=== PATIENT | male | born 1935 | race Caucasian/White ===

== ENCOUNTER 2016-11-18 04:30 | Inpatient (IN) | payer OTHER, MEDICARE ==
[~2016-11-18] VITALS: Ht 185.4 cm; Wt 121.1 kg
[2016-11-18] VITALS (22 sets, daily range): BP systolic 92–124; BP diastolic 50–73; PULSE 102–136; RESP 14–27; TEMP 98.1–99.5; O2SAT 99–100
[~2016-11-18 04:30] MED LIST: ALLO300 PO; APIX2.5T PO; BUME1TAB PO; CARV12.5 PO; DILT31TA PO; DOCU100C PO; LEVEMIR SQ; METHY5 PO; PRED20 PO; PROT40TA PO; SIMV20TA PO; TAMS0.4C4 PO; TIMO0.5S30 EACH EYE; ULTR50TA5 PO
[2016-11-18] MEDS ORDERED: VANCOMYCIN INJ 1,000 MG in SODIUM CHLOR 0.9% 250 ML INJ 250 ML IV ONE (04:45)
[2016-11-18] MEDS: SODIUM CHLOR 0.9% 1000 ML INJ 1,000 ML IV ONE ×4 (04:45→04:56)
[2016-11-18] MEDS ORDERED: SODIUM CHLOR 0.9% 1000 ML INJ 1,000 ML IV ONE (04:45)
[2016-11-18] MEDS ORDERED: PIPERACIL-TAZO 3.375 GM PREMIX 50 ML IV ONE (04:45)
[2016-11-18] MEDS ORDERED: fentaNYL DRIP 250 ML ONE (05:05)
[2016-11-18 05:13] LABS: BLOOD GAS BASE EXCESS -4.9 mmol/L (-2-2); BLOOD GAS CARBOXYHEMOGLOBIN 2.8 % (0-4); BLOOD GAS HCO3 22 mmol/L (22-26); BLOOD GAS METHEMOGLOBIN 1.6 % (0-2); BLOOD GAS O2 HGB SATURATION 95 % (90-100); BLOOD GAS OXYGEN CONTENT 12.7 Vol % (12.0-20.0); BLOOD GAS PCO2 58 mmHg (38-42); BLOOD GAS PO2 235 mmHG (61-120); BLOOD GAS TOTAL HGB 9.1 G/DL (12.0-16.0); TEMP CORR TO 98.6
[2016-11-18 05:13] LABS: AUTOMATED NEUTROPHIL # 6.1 TH/MM3 (1.8-7.7); BASOPHIL % 0.3 % (0.0-2.0); EOSINOPHIL # 0.1 TH/MM3 (0-0.4); EOSINOPHIL % 1.9 % (0.0-4.0); LYMPH % 5.5 % (9.0-44.0); LYMPHOCYTE # 0.4 TH/MM3 (1.0-4.8); MEAN CELL VOLUME 87.9 FL (80.0-100.0); MEAN CORPUSCULAR HEMOGLOBIN 27.4 PG (27.0-34.0); MEAN CORPUSCULAR HGB CONC 31.1 % (32.0-36.0); NEUT % 85.3 % (16.0-70.0); PLATELET COUNT 158 TH/MM3 (150-450); RED BLOOD COUNT 3.52 MIL/MM3 (4.50-5.90); RED CELL DISTRIBUTION WIDTH 18.1 % (11.6-17.2); WHITE BLOOD COUNT 7.1 TH/MM3 (4.0-11.0)
[2016-11-18 05:14] LABS: CRITICAL VALUE YES; DRAW SITE LT BRACHIAL; FIO2 100 %; NUMBER OF ARTERIAL PUNCTURES 1; OXYGEN DEVICE VENTILATOR; STAT YES; ULNAR PULSE PRESENT; VENT SETTINGS VAC16/500/PEEP5
--- NOTE | 2016-11-18 05:14 | PD ---
HPI Chief Complaint: Respiratory Distress Time Seen by Provider: 04:45 Travel History International Travel<30 days: No Contact w/Intl Traveler<30days: No Traveled to known affect area: No History of Present Illness HPI The patient is an 81 year old male who presents to the [facility] emergency department with a history of currently residing at a [facility] and experiencing shortness of breath. Upon ambulance services arrival the patient' s O2 saturations were noted to be in the 70s. The patient was briefly placed on a nonrebreather and his O2 saturations came up into the 80s. The patient was noted to have a pulse in the 150s. The patient was noted to have a GCS of 4. The patient according to the [facility] normally has a GCS of 14. The patient was intubated by ambulance services prior to arrival after the administration of 20 mg of etomidate and 4 mg of Ativan. The patient was noted to have an initial blood pressure systolic in the 80s and was given 700 mL of normal saline IV fluids. The patient's blood sugar prior to arrival was 93. The patient is unable to provide any other history at this time as he is currently intubated. The patient arrives with secretions and his endotracheal tube that her purulent appearing. The patient is suspected to have aspirated. [facility] Past Medical History Narrative Medical The patient's past medical history is significant for congestive heart failure, COPD, acute on chronic renal failure with a history in the recent past of requiring hemodialysis although this has been discontinued recently, hypertension, hyperlipidemia, diabetes mellitus, peripheral neuropathy, benign prostatic hypertrophy, glaucoma, gout. Medical History: Unable to Obtain Arthritis: Yes Asthma: Yes Autoimmune Disease: No Anxiety: No Depression: No Heart Rhythm Problems: Yes (A-Fib) Cancer: No Cardiovascular Problems: Yes High Cholesterol: Yes Chemotherapy: No Chest Pain: No Congestive Heart Failure: Yes COPD: Yes Cerebrovascular Accident: No Diabetes: Yes Patient Takes Glucophage: No Endocrine: Yes GERD: Yes (medication related) Genitourinary: No Hiatal Hernia: No Hypertension: Yes Immune Disorder: No Kidney Stones: No Musculoskeletal: Yes Neurologic: No Psychiatric: No Reproductive: No Respiratory: Yes Migraines: No Radiation Therapy: No Renal Failure: Yes Seizures: No Sickle Cell Disease: No Sleep Apnea: Yes (C-Pap) Thyroid Disease: No Ulcer: No Tetanus Vaccination: Unknown Influenza Vaccination: Yes Past Surgical History Narrative Surgical The patient's past surgical history is significant for bilateral cataract surgery, history of permacath placement for previous dialysis, history of dental extractions, penile implant. Abdominal Surgery: No AICD: No Arteriovenous Shunt: No Cardiac Surgery: No Ear Surgery: No Endocrine Surgery: No Eye Surgery: Yes (bilateral cataracts) Genitourinary Surgery: Yes (penile implant) Gynecologic Surgery: No Insulin Pump: No Joint Replacement: No Oral Surgery: Yes (teeth extractions) Pacemaker: No Thoracic Surgery: No Other Surgery: Yes Social History Alcohol Use: No Tobacco Use: No Substance Use: No Allergies-Medications (Allergen,Severity, Reaction): Coded Allergies: Niacin (Unverified Allergy, Unknown, 10/09/16) Reported Meds & Prescriptions Reported Meds & Active Scripts Active Prednisone 20 Mg Tab 20 Mg PO DAILY Ultram (Tramadol HCl) 50 Mg Tab 50 Mg PO Q6H PRN Ritalin IR (Methylphenidate HCl) 5 Mg Tab 5 Mg PO BID@07,12 Bumetanide 1 Mg Tab 1 Mg PO BID Levemir Inj (Insulin Detemir) 1,000 unit/ 10 ML Vial 25 Units SQ DAILY 30 Days Cardizem (Diltiazem HCl) 30 Mg Tab 30 Mg PO Q6HR Coreg (Carvedilol) 12.5 Mg Tab 12.5 Mg PO BID Zyloprim (Allopurinol) 300 Mg Tab 150 Mg PO DAILY Timolol Opth Drops 0.5 % Soln 1 Drop EACH EYE DAILY Tamsulosin (Tamsulosin HCl) 0.4 Mg Cap 0.4 Mg PO DAILY Simvastatin 20 Mg Tab 20 Mg PO HS Protonix (Pantoprazole Sodium) 40 Mg Tab 40 Mg PO DAILY Docusate Sodium 100 Mg Cap 100 Mg PO BID Eliquis (Apixaban) 2.5 Mg Tab 2.5 Mg PO BID Review of Systems ROS Limitations: Intubated Eyes: No: Visual changes Respiratory: Positive: Cough, Shortness of Breath Neurologic: Positive: Change in Mentation Physical Exam Narrative General: The patient is a well-developed, obese male, intubated on arrival, tachycardic in the 130s to 140s. Head and Neck exam: Head is normocephalic atraumatic. Eyes: Extra to the motion testing is unable to be accomplished in this patient who has been sedated and is currently unresponsive, pupils are equal round and reactive to light. Nose: Midline septum with pink mucous membranes Mouth: Dentition unremarkable. Moist mucus membranes. Posterior oropharynx is not able to be visualized as the patient has an endotracheal tube in place. Neck: No palpable lymphadenopathy. No nuchal rigidity. Cardiovascular: Tachycardia noted with a heart rate in the 130s to 140s without murmurs, gallops , or rubs. Lungs: Bilateral rhonchi are audible worse on the right compared to the left, no wheezes or crackles are audible although the patient has diminished breath sounds in bilateral bases. Abdomen: Soft, without tenderness to palpation in all 4 quadrants of the abdomen. No guarding, rebound, or rigidity. Normal bowel sounds are audible. Extremities: No clubbing or cyanosis. The patient has 2-3+ pitting edema bilateral lower extremities extending up to the lower abdomen. 2+ pulses in bilateral upper extremities. Less than 4 second capillary refill of bilateral lower extremities Back: The patient has a sacral decubitus ulcer noted on rolling. Please see the nurse 's full documentation of the depth of this ulcer. Neurologic Exam: The patient has a GCS of 3 on arrival. The patient has no response to painful stimulation. No motor activity noted. No eye opening noted. The patient is however intermittently coughing against the endotracheal tube. Data Data Last Documented VS Vital Signs Date Time Temp Pulse Resp B/P Pulse Ox O2 Delivery O2 Flow Rate FiO2 11/18/16 05:15 100 50 11/18/16 05:00 99.1 128 20 106/73 Ventilator 11/18/16 04:30 15 Orders Electrocardiogram (11/18/16 04:45) Complete Blood Count With Diff (11/18/16 04:45) Comprehensive Metabolic Panel (11/18/16 04:45) Prothrombin Time / Inr (Pt) (11/18/16 04:45) Act Partial Throm Time (Ptt) (11/18/16 04:45) Lactic Acid Sepsis Protocol (11/18/16 04:45) Magnesium (Mg) (11/18/16 04:45) Lipase (11/18/16 04:45) Ckmb (Isoenzyme) Profile (11/18/16 04:45) Troponin I (11/18/16 04:45) Urinalysis - C+S If Indicated (11/18/16 04:45) Influenzae A/B Antigen (11/18/16 04:45) Blood Culture (11/18/16 04:45) Sputum Culture And Gram Stain (11/18/16 04:45) Chest, Single Ap (11/18/16 04:45) Arterial Blood Gas (Abg) (11/18/16 04:45) Blood Glucose (11/18/16 04:45) Ecg Monitoring (11/18/16 04:45) Iv Access Insert/Monitor (11/18/16 04:45) Oximetry (11/18/16 04:45) Oxygen Administration (11/18/16 04:45) Sodium Chlor 0.9% 1000 Ml Inj (Ns 1000 M (11/18/16 04:45) Sodium Chlor 0.9% 1000 Ml Inj (Ns 1000 M (11/18/16 04:45) Sodium Chlor 0.9% 1000 Ml Inj (Ns 1000 M (11/18/16 04:45) B-Type Natriuretic Peptide (11/18/16 04:45) Vancomycin Inj (Vancomycin Inj) (11/18/16 04:45) Piperacil-Tazo 3.375 Gm Premix (Zosyn 3. (11/18/16 04:45) Urinary Catheter Insert/Apply (11/18/16 04:45) Ana-Gastric Tube Insert/Mon (11/18/16 04:45) Fentanyl Drip (Fentanyl Drip) (11/18/16 05:05) Urine Culture (11/18/16 04:45) Resp Ventilation- Volume (11/18/16 ) Restraints Non-Violent BREANNE.Q3H (11/18/16 05:20) Neurological Rass Scale Q30MX2,Q2HX4,Q4H (11/18/16 05:20) Fentanyl Drip (Fentanyl Drip) (11/18/16 05:30) Calcium Gluconate Inj (Calcium Gluconate (11/18/16 05:30) Acetaminophen Supp (Tylenol Supp) (11/18/16 05:30) Vital Signs (Adult) Q15MX4,Q4H (11/18/16 05:20) Cardiac Rhythm BREANNE.Q8H (11/18/16 05:20) ^ Notify Dr: Other (11/18/16 05:20) Diltiazem Inj (Cardizem Inj) (11/18/16 05:30) Admit Order (Ed Use Only) (11/18/16 05:54) Labs Laboratory Tests Test 11/18/16 11/18/16 11/18/16 04:45 04:55 04:58 White Blood Count 7.1 TH/MM3 Red Blood Count 3.52 MIL/MM3 Hemoglobin 9.7 GM/DL Hematocrit 31.0 % Mean Corpuscular Volume 87.9 FL Mean Corpuscular Hemoglobin 27.4 PG Mean Corpuscular Hemoglobin 31.1 % Concent Red Cell Distribution Width 18.1 % Platelet Count 158 TH/MM3 Mean Platelet Volume 9.2 FL Neutrophils (%) (Auto) 85.3 % Lymphocytes (%) (Auto) 5.5 % Monocytes (%) (Auto) 7.0 % Eosinophils (%) (Auto) 1.9 % Basophils (%) (Auto) 0.3 % Neutrophils # (Auto) 6.1 TH/MM3 Lymphocytes # (Auto) 0.4 TH/MM3 Monocytes # (Auto) 0.5 TH/MM3 Eosinophils # (Auto) 0.1 TH/MM3 Basophils # (Auto) 0.0 TH/MM3 CBC Comment AUTO DIFF Differential Total Cells 100 Counted Neutrophils % (Manual) 77 % Band Neutrophils % 10 % Lymphocytes % 3 % Monocytes % 7 % Eosinophils % 2 % Basophils % 1 % Neutrophils # (Manual) 6.2 TH/MM3 Differential Comment FINAL DIFF MANUAL Platelet Estimate NORMAL Platelet Morphology Comment NORMAL Basophilic Stippling FAINT Ovalocytes 1+ Acanthocytes OCC Prothrombin Time 13.3 SEC Prothromb Time International 1.2 RATIO Ratio Activated Partial 38.3 SEC Thromboplast Time Urine Color YELLOW Urine Turbidity HAZY Urine pH 5.0 Urine Specific [place] 1.013 Urine Protein NEG mg/dL Urine Glucose (UA) NEG mg/dL Urine Ketones NEG mg/dL Urine Occult Blood NEG Urine Nitrite NEG Urine Bilirubin NEG Urine Urobilinogen LESS THAN 2.0 MG/DL Urine Leukocyte Esterase NEG Urine RBC LESS THAN 1 /hpf Urine WBC LESS THAN 1 /hpf Urine Squamous Epithelial <1 /hpf Cells Urine Bacteria RARE /hpf Urine Hyaline Casts 5 /lpf Urine Mucus FEW /lpf Microscopic Urinalysis Comment CATH-CULTURE IND Sodium Level 135 MEQ/L Potassium Level 5.3 MEQ/L Chloride Level 100 MEQ/L Carbon Dioxide Level 25.1 MEQ/L Anion Gap 10 MEQ/L Blood Urea Nitrogen 90 MG/DL Creatinine 2.65 MG/DL Estimat Glomerular Filtration 23 ML/MIN Rate Random Glucose 80 MG/DL Calcium Level 8.0 MG/DL Magnesium Level 1.8 MG/DL Total Bilirubin 0.5 MG/DL Aspartate Amino Transf 23 U/L (AST/SGOT) Alanine Aminotransferase 31 U/L (ALT/SGPT) Alkaline Phosphatase 156 U/L Total Creatine Kinase 19 U/L Troponin I 0.05 NG/ML B-Type Natriuretic Peptide 395 PG/ML Total Protein 4.7 GM/DL Albumin 1.8 GM/DL Lipase 43 U/L Lactic Acid Level 1.0 mmol/L Blood Gas Puncture Site LT BRACHIAL Blood Gas Patient Temperature 98.6 Blood Gas HCO3 22 mmol/L Blood Gas Base Excess -4.9 mmol/L Blood Gas Oxygen Saturation 95 % Arterial Blood pH 7.20 Arterial Blood Partial 58 mmHg Pressure CO2 Arterial Blood Partial 235 mmHG Pressure O2 Arterial Blood Oxygen Content 12.7 Vol % Arterial Blood 2.8 % Carboxyhemoglobin Arterial Blood Methemoglobin 1.6 % Blood Gas Hemoglobin 9.1 G/DL Oxygen Delivery Device VENTILATOR Blood Gas Ventilator Setting [id number]/500/[id number] Blood Gas Inspired Oxygen 100 % [facility] Medical Decision Making Medical Screen Exam Complete: Yes Emergency Medical Condition: Yes Medical Record Reviewed: Yes Interpretation(s) Last Impressions Chest X-Ray 11/18/16 0445 Signed Impressions: Service Date/Time: Friday, November 18, 2016 05:40 - CONCLUSION: Diffuse processes such as edema is seen. Abdon Issa MD Differential Diagnosis Aspiration, versus respiratory failure from congestive heart failure exacerbation, versus pulmonary edema from renal failure, versus sepsis, versus electrolyte abnormality, versus acute coronary syndrome Narrative Course During the course of the patients emergency department visit, the patients history, examination, and differential diagnosis were reviewed with the patient. The patient had IV access obtained and blood work sent for analysis. The patient was placed on a skein bander with oximetry and blood pressure monitoring. An EKG was done on arrival. The patient's EKG revealed atrial fibrillation with RVR, heart rate of 134 with a marked left axis deviation, right bundle branch block, no other acute ST segment changes are noted. From reviewing the patient's electronic medical record, the patient does have a history of a right bundle branch block and a history of atrial fibrillation. His current EKG was compared to an EKG from October 22, 2016. The patient will have his sputum culture, blood cultures were sent, lactic acid will be sent, and influenza antigen will be collected. The patient was placed on the ventilator. An ABG will be drawn. The patient's airway was suctioned. The patient was placed with a Jenkins catheter to gravity. The patient had an OG tube placed to low intermittent suction. The patient was provided vancomycin 1 g IV, Zosyn 3.375 g IV. The patient was started initially on 30 mL per KG IV fluid bolus, however further review of his record reveals a history of congestive heart failure, chest x-ray shows what appears to be pulmonary edema, therefore the patient's fluid bolus was held at 1 L of normal saline. The patient was started on a fentanyl drip for light sedation on the ventilator. The patient was given calcium gluconate 1 g IV, acetaminophen 650 mg MS, Cardizem drip was started for A. fib with RVR. The patients laboratory studies were reviewed and remarkable for a white count of 7.1, hemoglobin 9.7, platelets 158 with 77 neutrophils, 10 bands, CMP is remarkable for sodium of 135, potassium 5.3, BUN 90, creatinine 2.67, calcium 8 , alkaline phosphatase 156, CPK 19, troponin I 0.05, BNP is 395, lipase 43, lactic acid is 1.0, INR is 1.2, urinalysis shows rare bacteria this is a catheterized specimen. Cultures indicated. Radiology studies were reviewed and remarkable for a chest x-ray that shows a diffuse process such as edema. The patient's case was discussed with the airconditioning plant operator who did agree to admit the patient for further evaluation and treatment at this time. The patients results were discussed with the patient, including the plan of care. I explained that further testing and/ or monitoring is indicated based on the patients history, examination, and/ or laboratory findings. Therefore, I recommended admission for additional evaluation. The patient expressed understanding and was agreeable with this plan. The patient was admitted to the hospital in critical condition and sent to a bed under the care of the airconditioning plant operator. Critical Care Narrative Aggregate critical care time was 42 minutes. Time to perform other separately billable procedures was not included in the critical care time. My time did not include minutes spent treating any other patients simultaneously or on activities that did not directly contribute to the patient's treatment. The services I provided to this patient were to treat and/or prevent clinically significant deterioration that could result in: Cardiovascular collapse, sepsis, ARDS I provided critical care services requiring my management, as noted below: Chart data review, documentation time, medication orders and management, vital sign assessments/reviewing monitor data, ordering and reviewing lab tests, ordering and interpreting/reviewing x-rays and diagnostic studies, care of the patient and discussion of the patient with the admitting physicians. Sepsis Criteria SIRS Criteria (2 or more): Heart rate over 90, RR > 20 or PaCO2 < 32 Physician Communication Physician Communication The patient's case was discussed with Dr. Olivarez, the airconditioning plant operator stone repairer who did agree to admit the patient for further evaluation and treatment at this time. Diagnosis Primary Impression: Respiratory failure Qualified Code: J96.01 - Acute respiratory failure with hypoxia Additional Impressions: Congestive heart failure Qualified Code: I50.9 - Congestive heart failure, unspecified congestive heart failure chronicity, unspecified congestive heart failure type Atrial fibrillation with RVR Admitting Information Admitting Physician Requests: Admit Poonam Molina MD Nov 18, 2016 05:14
[2016-11-18 05:17] LABS: HEMO FLAGS AUTO DIFF
[2016-11-18 05:19] LABS: BACTERIA, URINE RARE /hpf; BLOOD, URINE NEG (NEG); COMMENT (UR) CATH-CULTURE IND; CULTURE IF INDICATED CATH CULTURE IND; GLUCOSE,URINE NEG (NEG); HYALINE CAST, URINE 5 /lpf (RARE); KETONE, URINE NEG (NEG); MUCUS URINE FEW /lpf (OCC); NITRITE,URINE NEG (NEG); SQUAMOUS EPITHELIAL CELL URINE <1 /hpf (0-5); URINE COLOR YELLOW (YELLW/STRAW)
[2016-11-18 05:23] LABS: APTT (PATIENT) 38.3 SEC (24.3-30.1); INTERNATIONAL NORMALIZED RATIO 1.2 RATIO; PROTHROMBIN TIME - PATIENT 13.3 SEC (9.8-11.6)
[2016-11-18] MEDS ORDERED: ACETAMINOPHEN 650 MG SUPP RECTAL ONE (05:30)
[2016-11-18] MEDS ORDERED: CALCIUM GLUCONATE 10% 1 GM/10 ML VIAL IV PUSH ONE (05:30)
[2016-11-18] MEDS ORDERED: DILTIAZEM INJ 125 MG in SODIUM CHLORIDE 0.9% INJ 100 ML IV SCH (05:30)
[2016-11-18 05:39] LABS: ANION GAP 10 MEQ/L (5-15); AST (GOT) 23 U/L (15-37); BICARBONATE 25.1 MEQ/L (21.0-32.0); BLOOD UREA NITROGEN 90 MG/DL (7-18); CHLORIDE 100 MEQ/L (98-107); GLOMERULAR FILTRATION RATE 23 ML/MIN (>89); MAGNESIUM 1.8 MG/DL (1.5-2.5); POTASSIUM 5.3 MEQ/L (3.5-5.1); SODIUM (NA) 135 MEQ/L (136-145)
[2016-11-18] MEDS: fentaNYL DRIP 250 ML IV SCH (05:39)
[2016-11-18 05:42] LABS: BANDS 10 % (0-6); BASOPHILS 1 % (0-2); EOSINOPHILS 2 % (0-4); NEUTROPHIL # MANUAL DIFF 6.2 TH/MM3 (1.8-7.7); POLYS (SEG NEUTROPHILS) 77 % (16-70); SCAN/DIFF FINAL DIFF MANUAL; WBC DIFF SAMPLE 100
[2016-11-18 05:43] LABS: PLATELET ESTIMATE SMEAR NORMAL (NORMAL); PLATELET MORPHOLOGY NORMAL (NORMAL)
[2016-11-18 05:44] LABS: ACANTHOCYTES OCC (NORMAL); ALKALINE PHOSPHATASE 156 U/L (45-117); ALT (GPT) 31 U/L (12-78); OVALOCYTES 1+ (NORMAL); TOTAL BILIRUBIN ADULT 0.5 MG/DL (0.2-1.0)
[2016-11-18 05:48] LABS: CREATINE KINASE 19 U/L (39-308)
--- NOTE | 2016-11-18 06:08 | RADRPT ---
EXAM DATE/TIME: 11/18/2016 05:40 [facility] COMPARISON: CHEST SINGLE AP, October 28, 2016, 8:58. INDICATIONS : Shortness of breath. MEDICAL HISTORY : Non-responsive SURGICAL HISTORY : Non-responsive ENCOUNTER: Initial ACUITY: 1 day PAIN SCORE: Non-responsive. LOCATION: Bilateral chest FINDINGS: ET tube and NG tube will place. The heart size is enlarged. There is diffuse increased density seen t hroughout the lungs being worse on the right. CONCLUSION: Diffuse processes such as edema is seen. Abdon Issa MD on November 18, 2016 at 6:06 Board Certified Radiologist. This report was verified electronically.
--- NOTE | 2016-11-18 09:04 | RADRPT ---
EXAM DATE/TIME: 11/18/2016 07:46 [facility] COMPARISON: CHEST SINGLE AP, November 18, 2016, 5:40. INDICATIONS : Evaluate ET tube placement. MEDICAL HISTORY : Chronic obstructive pulmonary disease. SURGICAL HISTORY : None. ENCOUNTER: Initial ACUITY: 1 day PAIN SCORE: Non-responsive. LOCATION: Bilateral chest FINDINGS: Pulmonary opacities possibly representing congestion persists. Nasogastric tube remains through the m idline stomach. ET tube is in place and terminates at the diana pullback recommended. CONCLUSION: ET tube terminates at the diana pullback recommended in 3-4 cm. Otherwise stable chest. Rome Dwyer MD on November 18, 2016 at 9:01 Board Certified Radiologist. This report was verified electronically.
[2016-11-18] MEDS ORDERED: DEXTROSE 50% IN WATER 50 ML VIAL(D50) IV PUSH PRN (09:30)
[2016-11-18] MEDS ORDERED: MISCELLANEOUS NURSING INFORMATION XX SCH ×2 (09:30→13:45)
[2016-11-18] MEDS ORDERED: GLUCAGON 1 MG/ML VIAL OTHER PRN (09:30)
[2016-11-18] MEDS ORDERED: CHLORHEXIDINE GLUCONATE 2 % 1 PACK (2 CLOTHS) TOP PRN ×2 (09:30→13:45)
[2016-11-18] MEDS ORDERED: SODIUM CHLORIDE 0.9% FLUSH 5 ML FLUSH IVF PRN (09:30)
[2016-11-18] MEDS: RESP: ALBUTEROL 2.5 MG/IPRATROPIUM 0.5 MG NEB (SCH) NEB ×3 (09:58→19:41)
[2016-11-18] MEDS: PANTOPRAZOLE SODIUM 40 MG VIAL IV SCH (10:37)
[2016-11-18] MEDS: SODIUM CHLOR 0.9% 1000 ML INJ 1,000 ML IV SCH (10:37)
[2016-11-18] MEDS: HYDROCORTISONE SOD SUCCINATE 100 MG VIAL IV PUSH SCH ×2 (10:38→17:02)
[2016-11-18] MEDS ORDERED: PIPERACIL-TAZO 3.375 GM PREMIX 50 ML IV SCH (11:00)
--- NOTE | 2016-11-18 11:25 | RADRPT ---
EXAM DATE/TIME: 11/18/2016 11:11 [facility] COMPARISON: CT BRAIN W/O CONTRAST, October 22, 2016, 15:34. INDICATIONS : Altered mental status. RADIATION DOSE: 66.26 CTDIvol (mGy) MEDICAL HISTORY : Hypertension. Chronic obstructive pulmonary disease. Cardiovascular disease SURGICAL HISTORY : None. ENCOUNTER: Initial ACUITY: 1 day PAIN SCALE: Non-responsive LOCATION: cranial TECHNIQUE: Multiple contiguous axial images were obtained of the head. Using automated exposure control and adjustment of the mA and/or kV according to patient size, radiation dose was kept as low as reasonably achievable to obtain optimal diagnostic quality images. FINDINGS: CEREBRUM: The ventricles are normal for age. No evidence of midline shift, mass lesion, hemorrha ge or acute infarction. No extra-axial fluid collections are seen. POSTERIOR FOSSA: The cerebellum and brainstem are intact. The 4th ventricle is midline. The cer ebellopontine angle is unremarkable. EXTRACRANIAL: The visualized portion of the orbits is intact. SKULL: The calvaria is intact. No evidence of skull fracture. CONCLUSION: Negative for an acute process. Girish Cervantes MD FACR on November 18, 2016 at 11:23 Board Certified Radiologist. This report was verified electronically.
[2016-11-18] MEDS: PIPERACIL-TAZO 2.25 GM PREMIX 50 ML IV SCH ×3 (11:59→23:10)
[2016-11-18] MEDS: INSULIN ASPART SUPPLEMENTAL SCALE SQ SCH ×3 (12:00→23:16)
[2016-11-18] MEDS: LINEZOLID 600 MG PREMIX 300 ML IV SCH ×2 (12:54→23:10)
[2016-11-18 14:56] LABS: BLOOD GAS BASE EXCESS -2.6 mmol/L (-2-2); BLOOD GAS HCO3 22 mmol/L (22-26); BLOOD GAS METHEMOGLOBIN 0.9 % (0-2); BLOOD GAS O2 HGB SATURATION 97 % (90-100); BLOOD GAS OXYGEN CONTENT 12.5 Vol % (12.0-20.0); BLOOD GAS PCO2 37 mmHg (38-42); BLOOD GAS PO2 156 mmHg (61-120); TEMP CORR TO 98.6
[2016-11-18 14:57] LABS: CRITICAL VALUE NO; OXYGEN DEVICE VENTILATOR
[2016-11-18 14:58] LABS: DRAW SITE LT RADIAL; FIO2 50 %; NUMBER OF ARTERIAL PUNCTURES 2; STAT NO; ULNAR PULSE PRESENT
--- NOTE | 2016-11-18 14:58 | MH ---
cc: HEIDYDANIELE DATE OF ADMISSION: 11/18/2016 DATE OF : 1935 HISTORY OF PRESENT ILLNESS The patient is a 81-year-old male with multiple medical comorbidities which include CHF, COPD, chronic kidney disease with history in the recent past of hemodialysis which was later discontinued, hypertension, hyperlipidemia, diabetes mellitus, BPH and peripheral neuropathy. He presented to [facility] ED from a local nursing facility for respiratory distress. Upon ambulance services arrival the patient had O2 saturation in the 70s and he was briefly placed on a non-rebreather mask where his O2 saturation improved to up in the 80s. However, the patient was tachycardic with heart rate in the 150s. He had a GCS score of 4 and was subsequently intubated by ambulance services prior to arrival after he was given etomidate and Ativan. His initial systolic blood pressure in the 80s and the patient responded to fluid resuscitation and his last blood pressure is 107/55 with a MAP of 72. The patient's blood sugar prior to arrival was 93. CT scan of the brain was obtained which was negative for acute process. Chest x-ray showed ET tube above the diana and pulmonary infiltrates, right greater than left. ABG post-intubation showed a pH of 7.20, CO2 58, pAO2 235, bicarb 22, saturation of 95% on assist control ventilation with a respiratory rate of 16, tidal volume 500, PEEP of 5 and FIO2 of 100%. His laboratory data is significant for acute on chronic kidney disease with BUN of 90, creatinine 2.65 and potassium of 5.3. His BNP was elevated at 395. EKG in the ER showed atrial fibrillation with RVR at a rate of 134 beats per minute. In the ED the patient was placed on fentanyl infusion for sedation which is currently at 80 mics. In addition he was given vancomycin and Zosyn. The patient also had nonocclusive thrombus of the right IJ vein in September and was placed on Eliquis 2.5 mg b.i.d., part of his home medications. The rest of the history is limited as the patient is intubated. PAST MEDICAL HISTORY As stated above, which includes: 1. COPD. 2. Acute on chronic kidney disease requiring dialysis at one point. 3. Hypertension. 4. Hyperlipidemia. 5. Diabetes mellitus. 6. Peripheral neuropathy. 7. BPH. 8. Glaucoma. 9. Gout. 10. Obstructive sleep apnea. PAST SURGICAL HISTORY 1. Previous bilateral cataract surgery. 2. Previous Perma-Cath placement for dialysis. 3. Previous penile implant. ALLERGIES NIACIN. MEDICATION Reported medications: 1. Eliquis. 2. Colace. 3. Protonix. 4. Simvastatin. 5. Allopurinol. 6. Coreg. 7. Levemir insulin. 8. Bumex. 9. Prednisone. FAMILY HISTORY Noncontributory. SOCIAL HISTORY The patient is a retirement resident. Nonsmoker, nondrinker. REVIEW OF SYSTEMS As per HPI. Rest of the review of systems unobtainable. PHYSICAL EXAMINATION GENERAL: 81-year-old male intubated for respiratory failure. VITAL SIGNS: Temperature 99.0, pulse of 109-120, blood pressure 107/55. Respiratory rate of 20, saturation 99-100% on assist control ventilation. Vent setting now pressure control/assist control rate of 14, respiratory pressure 22, I time 1.0, PEEP of 8 and FIO2 50%. HEENT: Atraumatic, normocephalic pupil equal, round, reactive to light and accommodation. Extraocular muscles intact. Conjunctivae pink. Nonicteric sclerae. Oral mucosa within normal. NECK: Supple. No JVD, adenopathy or thyromegaly. Trachea midline. Orally intubated. CARDIOVASCULAR: Tachycardic, irregularly, irregular. Normal S1-S2. No murmurs, rubs or gallops noted. PULMONARY: Bilateral equal air entry with few coarse breath sounds. ABDOMEN: Soft, obese, nontender, no distension. Positive bowel sounds. EXTREMITIES: No cyanosis, clubbing, 2+ edema of lower extremity and edema of right upper extremity noted as well. LABORATORY DATA WBC 7.1, hemoglobin 9.7, hematocrit 31, platelet count 158. Sodium 135, potassium 5.3, chloride 100, CO2 25, BUN 90, creatinine 2.65, glucose 80, lactic acid 1, troponin 0.05 and 0.09 on the second set with a total CK of 19 and 21, respectively, BNP 395. RADIOGRAPHIC STUDIES CT scan of the brain negative for acute process. Chest x-ray shows bilateral infiltrates and ET tube above the diana. IMPRESSION 1. Acute hypercapnic and hypoxemic respiratory failure. 2. Atrial fibrillation with rapid ventricular response. 3. Diffuse pulmonary infiltrates, differential diagnosis fluid overload vs infectious process. 4. Possible aspiration pneumonia. 5. Anemia of chronic disease. 6. Acute on chronic kidney disease. 7. Nonocclusive thrombus of the right IJ vein from September. 8. History of CHF. 9. COPD. 10. Hypertension. 11. Diabetes mellitus/dyslipidemia. 12. BPH. 13. Gout. 14. Obstructive sleep apnea. 15. Morbid obesity. RECOMMENDATIONS 1. Continue with fentanyl infusion for sedation and daily sedation vacation. Monitor neuro status closely. 2. CT scan of the brain in the ED negative for acute process. 3. Continue with vent support and maintain sats above 92%. 4. Bronchodilators in the form of DuoNeb q. 6 and will initiate ICU vent bundle. 5. Hold p.o. prednisone and the patient was placed on hydrocortisone 100 mg IV q. 8. 6. Monitor heart rate and blood pressure closely and maintain MAP greater than 65 mmHg. Lactic acid level measured at 1.0. Will obtain 2-D echo to evaluate LV function and rule out regional wall motion abnormalities. 7. Check TSH level. 8. Monitor renal function, I&O's and avoid nephrotoxins. 9. Will consult nephrology service and check renal ultrasound to rule out hydronephrosis. Gentle IV hydration. He was placed on NS at 75 mL an hour. 10. Place on Protonix 40 mg IV daily for GI prophylaxis. 11. Continue with broad-spectrum antibiotics in the form of Zosyn and Zyvox. Of note, the patient was given vancomycin and Zosyn in the ED. I will follow up on the blood and urine cultures. His nasal aspirate for influenza is negative. Check sputum culture with gram stain and will obtain a strep pneumonia and Legionella urinary antigen. 12. Monitor CBC and coags. 13. Sliding scale insulin with Accu-Chek for glycemic control. 14 Check Doppler US LE and RUE r/o DVT 16. GI prophylaxis with Protonix 40 mg daily and DVT prophylaxis with SCDs and resume Eliquis 2.5 mg b.i.d. 17. Critical care time 50 minutes excluding procedures. Discussed with patient's and daughter and updated them on his condition. All questions answered and they voiced understanding. MD ANDREY Coon/ADÁN /1:48 PM /2:13 PM MTDAlvaro
[2016-11-18 15:11] LABS: AUTOMATED NEUTROPHIL # 6.3 TH/MM3 (1.8-7.7); EOSINOPHIL # 0.1 TH/MM3 (0-0.4); EOSINOPHIL % 1.9 % (0.0-4.0); HEMATOCRIT 27.3 % (39.0-51.0); HEMO FLAGS DIFF FINAL; LYMPH % 3.5 % (9.0-44.0); LYMPHOCYTE # 0.2 TH/MM3 (1.0-4.8); MEAN CELL VOLUME 86.3 FL (80.0-100.0); MEAN CORPUSCULAR HEMOGLOBIN 27.7 PG (27.0-34.0); MEAN CORPUSCULAR HGB CONC 32.1 % (32.0-36.0); MONO % 4.6 % (0.0-8.0); PLATELET COUNT 132 TH/MM3 (150-450); RED BLOOD COUNT 3.16 MIL/MM3 (4.50-5.90); RED CELL DISTRIBUTION WIDTH 17.9 % (11.6-17.2)
[2016-11-18 15:43] LABS: BICARBONATE 24.8 MEQ/L (21.0-32.0); POTASSIUM 5.4 MEQ/L (3.5-5.1)
--- NOTE | 2016-11-18 16:34 | RADRPT ---
EXAM DATE/TIME: 11/18/2016 15:25 [facility] COMPARISON: No previous studies available for comparison. INDICATIONS : Swelling in right upper extremity. MEDICAL HISTORY : Hypercholesterolemia. Hypertension. Benign prostatic hyperplasia, (BPH) DVT. Gout neck and shoulder. Congestive heart failure. Neuropathy feet. A-Fib. COPD. Emphysema. Asthma. GI Bleed. Sleep apnea - CP AP. Renal disease. GERD. Sciatica, right. Arthritis. Diabetes. SURGICAL HISTORY : Bilateral cataracts. Penile implant. ENCOUNTER: Initial ACUITY: 1 day PAIN SCORE: Non-responsive LOCATION: Right arm. FINDINGS: There is spontaneous flow documented in the brachial, basilic, cephalic, axillary, and subclavian vei ns. The vessels are compressible and augmentation response is documented. No filling defects are se en. The flow is phasic with respiration. Direction of flow in the jugular vein is caudal. CONCLUSION: Normal examination. Abdon Londono MD on November 18, 2016 at 16:33 Board Certified Radiologist. This report was verified electronically.
--- NOTE | 2016-11-18 16:35 | RADRPT ---
EXAM DATE/TIME: 11/18/2016 14:32 [facility] COMPARISON: No previous studies available for comparison. INDICATIONS : Swelling in bilateral lower extremities. MEDICAL HISTORY : Hypercholesterolemia. Hypertension. Benign prostatic hyperplasia, (BPH) Gout neck and shoulder. Conge stive heart failure. Neuropathy feet. A-Fib. COPD. Emphysema. Asthma. GI Bleed. Sleep apnea - CPAP. R enal disease. GERD. Sciatica, right. Arthritis. Diabetes. SURGICAL HISTORY : Bilateral cataracts. Penile implant. ENCOUNTER: Initial ACUITY: 1 day PAIN SCORE: Non-responsive LOCATION: Bilateral legs. TECHNIQUE: Venous ultrasound of the left and right leg was performed from the inguinal ligament to the proximal calf. Real-time, color Doppler and spectral tracing, compression and augmentation techniques were us ed. Iliac vein open and patent FINDINGS: RIGHT LEG: There is normal compressibility of the deep venous system from the inguinal region to the proximal ca lf. No echogenic clot is seen in the lumen of the common femoral, femoral, popliteal, and posterior tibial veins. There is a normal response of the venous system to proximal and distal augmentation an d respiration. LEFT LEG: There is normal compressibility of the deep venous system from the inguinal region to the proximal ca lf. No echogenic clot is seen in the lumen of the common femoral, femoral, popliteal, and posterior tibial veins. There is a normal response of the venous system to proximal and distal augmentation an d respiration. Iliac vein with normal flow CONCLUSION: Normal examination. No evidence DVT Rome Dwyer MD on November 18, 2016 at 16:29 Board Certified Radiologist. This report was verified electronically.
--- NOTE | 2016-11-18 16:37 | RADRPT ---
EXAM DATE/TIME: 11/18/2016 15:08 [facility] COMPARISON: No previous studies available for comparison. EXTERNAL COMPARISON : [facility]. MR ABDOMEN W & W/O CONTRAST, April 25, 2010. CT ABDOMEN & PELVIS, 04/09/2010. INDICATIONS : Increased BUN and creatinine. MEDICAL HISTORY : Hypercholesterolemia. Hypertension. Benign prostatic hyperplasia, (BPH) Gout neck and shoulder. Conge stive heart failure. Neuropathy feet. A-Fib. COPD. Emphysema. Asthma. GI Bleed. Sleep apnea - CPAP. R enal disease. GERD. Sciatica, right. Arthritis. Diabetes. SURGICAL HISTORY : Bilateral cataracts. Penile implant. ENCOUNTER: Initial ACUITY: 3 days PAIN SCORE: Nonresponsive. LOCATION: Bilateral flank MEASUREMENTS: RIGHT KIDNEY: 10.8 x 4.2 x 5.2 cm LEFT KIDNEY: 14.0 x 5.7 x 7.2 cm FINDINGS: The urinary bladder is decompressed with a Jenkins catheter in place. Bilateral kidneys are overall nor mal size with no evidence of hydronephrosis or stone. Right kidney demonstrates an upper pole 2.4 cm there is cortical medullary junctions are relatively well-maintained questionable minimal thinning of the cortex CONCLUSION: Mild thinning of the cortex which may represent prior intimal disease. No evidence of hydronephrosis. 2.4 cm cyst upper pole of the right kidney. Urinary bladder decompressed with Jenkins catheter in plac e Rome Dwyer MD on November 18, 2016 at 16:34 Board Certified Radiologist. This report was verified electronically.
[2016-11-18] MEDS ORDERED: SODIUM POLYSTYRENE SULFONATE SUSP 15 GM/60 ML CUP PO ONE (17:00)
[2016-11-18] MEDS: APIXABAN 2.5 MG TABLET PO SCH ×2 (17:01→19:56)
--- NOTE | 2016-11-18 18:02 | PD.CONS ---
HPI Service Nephrology Consult Requested By Dr. Rashid Reason for Consult Acute renal failure and chronic kidney disease Primary Care Physician Jesse Sutton M.D. History of Present Illness Patient is a 81-year-old male with multiple comorbidities, CHF, atrial fibrillation, COPD, diabetes, chronic kidney disease stage IV, he has prolonged hospitalization at the [facility] and then he he was on hemodialysis briefly, 3 treatments were given and then his kidney improved he was placed on Bumex and he was sent for rehabilitation at [place], he did not regain his strength and that he was a sent to [facility], he has increased redness and swelling of the left leg and also right thumb was swollen up. He was sent here for possible aspiration pneumonia and shortness of breath and he is intubated. His creatinine ranged between 1.7-1.9 range and currently at 2.65 , follows with Dr. Silver Review of Systems ROS Limitations: Clinical Condition Past Family Social History Allergies: Coded Allergies: Niacin (Unverified Allergy, Unknown, 10/09/16) Past Medical History COPD CHF Atrial fibrillation Chronic kidney disease stage IV Diabetes History of smoking Peripheral edema DVT right arm Hyperlipidemia Hypertension Stage II decubitus ulcer Gout Past Surgical History Hemodialysis catheter Endoscopy Cataract Penile implant Reported Medications Reported Meds & Active Scripts Active Prednisone 20 Mg Tab 20 Mg PO DAILY Ultram (Tramadol HCl) 50 Mg Tab 50 Mg PO Q6H PRN Ritalin IR (Methylphenidate HCl) 5 Mg Tab 5 Mg PO BID@07,12 Bumetanide 1 Mg Tab 1 Mg PO BID Levemir Inj (Insulin Detemir) 1,000 unit/ 10 ML Vial 25 Units SQ DAILY 30 Days Cardizem (Diltiazem HCl) 30 Mg Tab 30 Mg PO Q6HR Coreg (Carvedilol) 12.5 Mg Tab 12.5 Mg PO BID Zyloprim (Allopurinol) 300 Mg Tab 150 Mg PO DAILY Timolol Opth Drops 0.5 % Soln 1 Drop EACH EYE DAILY Tamsulosin (Tamsulosin HCl) 0.4 Mg Cap 0.4 Mg PO DAILY Simvastatin 20 Mg Tab 20 Mg PO HS Protonix (Pantoprazole Sodium) 40 Mg Tab 40 Mg PO DAILY Docusate Sodium 100 Mg Cap 100 Mg PO BID Eliquis (Apixaban) 2.5 Mg Tab 2.5 Mg PO BID Active Ordered Medications Current Medications Medications (Trade) Dose Ordered Sig/Ron Route Start Time Stop Time Status Last Admin Fentanyl Citrate 250 ml @ 0 mls/hr TITRATE IV 11/18/16 05:30 11/18/16 05:39 (NS 1000 ml Inj) 1,000 ml @ 75 mls/hr [id number] IV 11/18/16 09:30 11/18/16 10:37 (NS Flush) 2 ml UNSCH PRN IVF 11/18/16 09:30 (NS Flush) 2 ml BID IVF 11/18/16 21:00 (Peridex 0.12% Liq) 15 ml BID@08,20 MT 11/18/16 20:00 (Protonix Inj) 40 mg DAILY IV 11/18/16 10:00 11/18/16 10:37 (NovoLOG SUPPLEMENTAL SCALE) 1 Q6HR SQ 11/18/16 12:00 (SoluCORTEF INJ) 100 mg Q8H IV PUSH 11/18/16 10:00 11/18/16 17:02 (D50w (Vial) Inj) 25 ml UNSCH PRN IV PUSH 11/18/16 09:30 11/18/16 12:55 Glucagon 1 mg 1 mg UNSCH PRN OTHER 11/18/16 09:30 Linezolid 300 ml @ 300 mls/hr Q12H IV 11/18/16 11:30 11/18/16 12:54 (Zosyn 2.25 Gm Premix) 50 ml @ 100 mls/hr Q6H IV 11/18/16 11:00 11/18/16 17:01 (Eliquis) 2.5 mg BID PO 11/18/16 14:00 11/18/16 17:01 Miscellaneous Information 1 Q361D XX 11/18/16 13:45 (Chlorhexidine 2% Cloth) 3 pack Taper DAILY@04 TOP 11/19/16 04:00 11/15/17 03:59 (Chlorhexidine 2% Cloth) 3 pack UNSCH PRN TOP 11/18/16 13:45 Family History Noncontributory Social History History of smoking in the past Physical Exam Vital Signs Vital Signs Date Time Temp Pulse Resp B/P Pulse Ox O2 Delivery O2 Flow Rate FiO2 11/18/16 15:59 100 50 11/18/16 14:00 114 11/18/16 13:13 99.0 120 20 107/55 100 Auto-Vent 11/18/16 12:00 106 20 105/56 100 Auto-Vent 11/18/16 11:30 114 18 92/50 99 Auto-Vent 11/18/16 11:25 99 50 11/18/16 11:05 100 100 11/18/16 10:15 99.3 130 20 99/55 99 Auto-Vent 11/18/16 09:45 126 18 106/51 99 Auto-Vent 11/18/16 08:30 99.0 106 20 99/55 100 Auto-Vent 50 11/18/16 08:00 99.0 102 20 98/64 100 Auto-Vent 50 11/18/16 07:30 99 50 11/18/16 07:15 98.6 105 20 97/52 100 Auto-Vent 50 11/18/16 07:00 98.8 108 20 95/55 100 Auto-Vent 50 11/18/16 07:00 120 100 Auto-Vent 50 11/18/16 06:00 99.3 128 20 95/55 100 Ventilator 50 11/18/16 05:15 100 50 11/18/16 05:00 99.1 128 20 106/73 100 Ventilator 50 11/18/16 04:45 50 11/18/16 04:30 27 100 Ventilator 11/18/16 04:30 99.5 136 27 124/68 100 11/18/16 04:30 27 100 15 11/18/16 04:30 100 Ventilator 11/18/16 04:30 100 100 11/18/16 04:25 100 100 Physical Exam GENERAL: Well-nourished, well-developed on ventilator patient. SKIN: Warm and dry. HEAD: Normocephalic. EYES: No scleral icterus. No injection or drainage. NECK: Supple, trachea midline. No JVD or lymphadenopathy. CARDIOVASCULAR: Irregularly irregular tachycardic RESPIRATORY: Breath sounds equal diminished at bases GASTROINTESTINAL: Abdomen soft, non-tender, nondistended. EXTREMITIES: No cyanosis, 2-3+ edema. NEUROLOGICAL: Sedated Laboratory Laboratory Tests Test 11/18/16 11/18/16 11/18/16 11/18/16 04:45 04:55 04:58 10:50 White Blood Count 7.1 Red Blood Count 3.52 Hemoglobin 9.7 Hematocrit 31.0 Mean Corpuscular Volume 87.9 Mean Corpuscular Hemoglobin 27.4 Mean Corpuscular Hemoglobin 31.1 Concent Red Cell Distribution Width 18.1 Platelet Count 158 Mean Platelet Volume 9.2 Neutrophils (%) (Auto) 85.3 Lymphocytes (%) (Auto) 5.5 Monocytes (%) (Auto) 7.0 Eosinophils (%) (Auto) 1.9 Basophils (%) (Auto) 0.3 Neutrophils # (Auto) 6.1 Lymphocytes # (Auto) 0.4 Monocytes # (Auto) 0.5 Eosinophils # (Auto) 0.1 Basophils # (Auto) 0.0 CBC Comment AUTO DIFF Differential Total Cells 100 Counted Neutrophils % (Manual) 77 Band Neutrophils % 10 Lymphocytes % 3 Monocytes % 7 Eosinophils % 2 Basophils % 1 Neutrophils # (Manual) 6.2 Differential Comment FINAL DIFF MANUAL Platelet Estimate NORMAL Platelet Morphology Comment NORMAL Basophilic Stippling FAINT Ovalocytes 1+ Acanthocytes OCC Prothrombin Time 13.3 Prothromb Time International 1.2 Ratio Activated Partial 38.3 Thromboplast Time Urine Color YELLOW Urine Turbidity HAZY Urine pH 5.0 Urine Specific [place] 1.013 Urine Protein NEG Urine Glucose (UA) NEG Urine Ketones NEG Urine Occult Blood NEG Urine Nitrite NEG Urine Bilirubin NEG Urine Urobilinogen LESS THAN 2.0 Urine Leukocyte Esterase NEG Urine RBC LESS THAN 1 Urine WBC LESS THAN 1 Urine Squamous Epithelial <1 Cells Urine Bacteria RARE Urine Hyaline Casts 5 Urine Mucus FEW Microscopic Urinalysis Comment CATH-CULTURE IND Sodium Level 135 Potassium Level 5.3 Chloride Level 100 Carbon Dioxide Level 25.1 Anion Gap 10 Blood Urea Nitrogen 90 Creatinine 2.65 Estimat Glomerular Filtration 23 Rate Random Glucose 80 Calcium Level 8.0 Magnesium Level 1.8 Total Bilirubin 0.5 Aspartate Amino Transf 23 (AST/SGOT) Alanine Aminotransferase 31 (ALT/SGPT) Alkaline Phosphatase 156 Total Creatine Kinase 19 21 Troponin I 0.05 0.09 B-Type Natriuretic Peptide 395 Total Protein 4.7 Albumin 1.8 Lipase 43 Lactic Acid Level 1.0 Blood Gas Puncture Site LT BRACHIAL Blood Gas Patient Temperature 98.6 Blood Gas HCO3 22 Blood Gas Base Excess -4.9 Blood Gas Oxygen Saturation 95 Arterial Blood pH 7.20 Arterial Blood Partial 58 Pressure CO2 Arterial Blood Partial 235 Pressure O2 Arterial Blood Oxygen Content 12.7 Arterial Blood 2.8 Carboxyhemoglobin Arterial Blood Methemoglobin 1.6 Blood Gas Hemoglobin 9.1 Oxygen Delivery Device VENTILATOR Blood Gas Ventilator Setting [id number] Blood Gas Inspired Oxygen 100 Test 11/18/16 11/18/16 14:11 14:41 White Blood Count 7.0 Red Blood Count 3.16 Hemoglobin 8.8 Hematocrit 27.3 Mean Corpuscular Volume 86.3 Mean Corpuscular Hemoglobin 27.7 Mean Corpuscular Hemoglobin 32.1 Concent Red Cell Distribution Width 17.9 Platelet Count 132 Mean Platelet Volume 9.1 Neutrophils (%) (Auto) 90.0 Lymphocytes (%) (Auto) 3.5 Monocytes (%) (Auto) 4.6 Eosinophils (%) (Auto) 1.9 Basophils (%) (Auto) 0.0 Neutrophils # (Auto) 6.3 Lymphocytes # (Auto) 0.2 Monocytes # (Auto) 0.3 Eosinophils # (Auto) 0.1 Basophils # (Auto) 0.0 CBC Comment DIFF FINAL Differential Comment Sodium Level 137 Potassium Level 5.4 Chloride Level 102 Carbon Dioxide Level 24.8 Anion Gap 10 Blood Urea Nitrogen 100 Creatinine 2.65 Estimat Glomerular Filtration 23 Rate Random Glucose 105 Calcium Level 8.0 Total Creatine Kinase 35 Troponin I 0.10 Thyroid Stimulating Hormone 0.021 3rd Gen Blood Gas Puncture Site LT RADIAL Blood Gas Patient Temperature 98.6 Blood Gas HCO3 22 Blood Gas Base Excess -2.6 Blood Gas Oxygen Saturation 97 Arterial Blood pH 7.39 Arterial Blood Partial 37 Pressure CO2 Arterial Blood Partial 156 Pressure O2 Arterial Blood Oxygen Content 12.5 Arterial Blood 2.0 Carboxyhemoglobin Arterial Blood Methemoglobin 0.9 Blood Gas Hemoglobin 9.0 Oxygen Delivery Device VENTILATOR Blood Gas Ventilator Setting Blood Gas Inspired Oxygen 50 Date/Time Procedure Status Source Growth 11/18/16 05:45 Influenza Types A,B Antigen (ROLY) - Final Complete Nasal Aspirate NEGATIVE FOR FLU A AND B ANTIGEN.... 11/18/16 04:50 Aerobic Blood Culture Received Blood Peripheral Pending 11/18/16 04:50 Anaerobic Blood Culture Received Blood Peripheral Pending 11/18/16 04:45 Urine Culture Received Urine Catheterized Urine Pending Result Diagram: 11/18/16 1411 11/18/16 1411 Imaging Last Impressions Chest X-Ray 11/18/16 [id number] Signed Impressions: Service Date/Time: Friday, November 18, 2016 05:40 - CONCLUSION: Diffuse processes such as edema is seen. Abdon Issa MD Upper Extremity Ultrasound 11/18/16 0000 Signed Impressions: Service Date/Time: Friday, November 18, 2016 15:25 - CONCLUSION: Normal examination. Abdon Londono MD Renal Ultrasound 11/18/16 Signed Impressions: Service Date/Time: Friday, November 18, 2016 15:08 - CONCLUSION: Mild thinning of the cortex which may represent prior intimal disease. No evidence of hydronephrosis. 2.4 cm cyst upper pole of the right kidney. Urinary bladder decompressed with Jenkins catheter in place Rome Dwyer MD Lower Extremity Ultrasound 11/18/16 Signed Impressions: Service Date/Time: Friday, November 18, 2016 14:32 - CONCLUSION: Normal examination. No evidence DVT Rome Dwyer MD Head CT 11/18/16 Signed Impressions: Service Date/Time: Friday, November 18, 2016 11:11 - CONCLUSION: Negative for an acute process. Girish Cervantes MD FACR Assessment and Plan Problem List: (1) Acute renal failure Plan: Patient has nonoliguric. He is on ventilator and she has cardiogenic care issues and RVR with atrial fibrillation, he is not oliguric and urine output has picked up Follow BMP in the morning (2) CKD (chronic kidney disease) stage 4, GFR 15-29 ml/min Plan: Known history of kidney disease as above due to diabetes (3) CHF (congestive heart failure) Plan: On the ventilator he can benefit from Bumex decrease IV fluid (4) Atrial fibrillation with RVR Plan: Continue to monitor (5) Respiratory failure Plan: On ventilator (6) Pneumonia (7) Hyperkalemia Plan: Give Bumex it will help Problem Qualifiers (1) Acute renal failure: Qualified Code: N17.0 - Acute renal failure with tubular necrosis (2) Respiratory failure: Qualified Code: J96.01 - Acute respiratory failure with hypoxia Niko Delgadillo MD Nov 18, 2016 18:02
[2016-11-18] MEDS ORDERED: BUMETANIDE INJ 1 MG/4 ML VIAL IV PUSH ONE (18:15)
[2016-11-18] MEDS: CHLORHEXIDINE 0.12% (ORAL KIT) 15 ML CUP MT SCH (19:59)
[2016-11-18] MEDS: SODIUM CHLORIDE 0.9% FLUSH 5 ML FLUSH IVF SCH (19:59)
[2016-11-18 20:25] LABS: FREE T3 1.22 PG/ML (2.18-3.98); FREE T4 1.41 NG/DL (0.76-1.46); POTASSIUM 5.4 MEQ/L (3.5-5.1)
--- NOTE | 2016-11-18 21:04 | EC ---
Study Study Date:11/18/2016 STUDY CONCLUSIONS SUMMARY - Left ventricle: The cavity size was mildly dilated. Wall thickness was normal. Systolic function was mildly to moderately reduced. The estimated ejection fraction was in the range of 40% to 45%. Wall motion was normal; there were no regional wall motion abnormalities. - Aortic valve: Calcified annulus. Trileaflet; moderately thickened, moderately calcified leaflets. - Aortic root: The aortic root was dilated. - Mitral valve: Calcified annulus. Mild regurgitation. - Right ventricle: The cavity size was dilated. Wall thickness was normal. - Right atrium: The atrium was dilated. - Tricuspid valve: Mild regurgitation. If LV function is below 40, please consider prescribing an ACEI or ARB or document rationale for non-use. PROCEDURE DATA STUDY STATUS: Elective. Procedure: Transthoracic echocardiography. Image quality was good. Scanning was performed from the parasternal, apical, and subcostal acoustic windows. Study completion: The patient tolerated the procedure well. Transthoracic echocardiography. M-mode, complete 2D, complete spectral Doppler, and color Doppler. Height: Height: 732in. Weight: Weight: 263.5lb. Body mass index: BMI: 0.3kg/m^2. Body surface area: BSA: 6.29m^2. Patient status: Inpatient. CARDIAC ANATOMY LEFT VENTRICLE: The cavity size was mildly dilated. Wall thickness was normal. Systolic function was mildly to moderately reduced. The estimated ejection fraction was in the range of 40% to 45%. Wall motion was normal; there were no regional wall motion abnormalities. AORTIC VALVE: Calcified annulus. Trileaflet; moderately thickened, moderately calcified leaflets. Doppler: Transvalvular velocity was within the normal range. There was no stenosis. No regurgitation. Valve area: 2.17cm^2(VTI). Indexed valve area: 0.34cm^2/m^2 (VTI). Valve area: 2.25cm^2 (Vmax). Indexed valve area: 0.36cm^2/m^2 (Vmax). Mean gradient: 3mm Hg (S). AORTA: Aortic root: The aortic root was dilated. MITRAL VALVE: Calcified annulus. Doppler: Transvalvular velocity was within the normal range. There was no evidence for stenosis. Mild regurgitation. Valve area by continuity equation (using LVOT flow): 2.41cm^2. Indexed valve area by continuity equation (using LVOT flow): 0.38cm^2/m^2. Mean gradient: 4mm Hg (D). Peak gradient: 9mm Hg (D). LEFT ATRIUM: The atrium was normal in size. RIGHT VENTRICLE: The cavity size was dilated. Wall thickness was normal. PULMONIC VALVE: Doppler: Transvalvular velocity was within the normal range. There was no evidence for stenosis. No regurgitation. TRICUSPID VALVE: Structurally normal valve. Doppler: Transvalvular velocity was within the normal range. Mild regurgitation. PULMONARY ARTERY: The main pulmonary artery was normal-sized. Systolic pressure was within the normal range. RIGHT ATRIUM: The atrium was dilated. PERICARDIUM: There was no pericardial effusion. SYSTEMIC VEINS: Inferior vena cava: The vessel was normal in size. Patient weight: 263.5lb _Ejection fraction:_ 65-75% _Fractional shortening:_ 32% up to 5Kg 5-11.5Kg 11.6-22.9Kg 23-45Kg 45-57Kg Aortic Root 7-13 <17 13-22 17-27 17-27 LA diam 6-13 <23 24-38 33-47 37-40 RVID 10-17 7-15 7-15 7-18 8-17 LVIDd 12-22 <32 24-38 33-47 37-40 LVPW 2-4 3-6 5-7 6-8 7-8 IVS 2-4 3-6 5-7 6-8 7-8 BASIC MEASUREMENTS ADULT NORMAL Left ventricle LV internal dimension, ED, chordal 49.7 mm 43-52 level, PLAX LV internal dimension, ES, chordal *43.1 mm 23-38 level, PLAX Fractional shortening, chordal level, *13 % >29 PLAX LV posterior wall thickness, ED 8.91 mm IVS/LVPW ratio, ED 1.02 <1.3 Ventricular septum Septal thickness, ED 9.07 mm Aorta Root diameter, ED 49 mm DOPPLER MEASUREMENTS ADULT NORMAL Aortic valve Peak velocity, S 113 cm/s Mean velocity, S 82.4 cm/s VTI, S 15.9 cm Mean gradient, S 3 mm Hg Valve area, VTI 2.17 cm^2 Valve area index, VTI 0.34 cm^2/m^2 Valve area, Vmax 2.25 cm^2 Valve area index, Vmax 0.36 cm^2/m^2 Mitral valve Peak E-wave velocity 125 cm/s Mean velocity, D 96.7 cm/s Deceleration time 217 ms 150-230 Mean gradient, D 4 mm Hg Peak gradient, D 9 mm Hg Valve area, LVOT continuity 2.41 cm^2 Valve area index, LVOT continuity 0.38 cm^2/m^2 Tricuspid valve Regurgitant peak velocity 278 cm/s Peak RV-RA gradient, S 31 mm Hg Maximal regurgitant velocity 278 cm/s LEGEND: Mean values are shown as u=mean value. Asterisk (*) king values outside specified normal range. Prepared and signed by Jermaine Rios [id number]
--- NOTE | 2016-11-18 21:58 | EKG ---
Date Performed: 11/18/2016 Time Performed: 04:35:44 PTAGE: 81 years EKG: ATRIAL FIBRILLATION WITH RAPID VENTRICULAR RESPONSE MARKED LEFT AXIS DEVIATION RIGHT BUNDLE BRANCH BLOCK ANTEROSEPTAL MYOCARDIAL INFARCTION ABNORMAL ECG Compared to the PREVIOUS TRACING , SR no longer present DOCTOR: Jermaine Rios Interpretating Date/Time 11/18/2016 21:57:33
[2016-11-19] VITALS (19 sets, daily range): BP systolic 110–123; BP diastolic 53–59; PULSE 103–147; RESP 14–22; TEMP 97.5–99.1; O2SAT 95–100
[2016-11-19] MEDS: HYDROCORTISONE SOD SUCCINATE 100 MG VIAL IV PUSH SCH ×3 (01:40→16:55)
[2016-11-19] MEDS: SODIUM CHLOR 0.9% 1000 ML INJ 1,000 ML IV SCH (01:43)
[2016-11-19] MEDS: RESP: ALBUTEROL 2.5 MG/IPRATROPIUM 0.5 MG NEB (SCH) NEB ×4 (03:39→21:23)
[2016-11-19] MEDS: CHLORHEXIDINE GLUCONATE 2 % 1 PACK (2 CLOTHS) TOP SCH (03:39)
[2016-11-19] MEDS ORDERED: CHLORHEXIDINE GLUCONATE 2 % 1 PACK (2 CLOTHS) TOP SCH (04:00)
--- NOTE | 2016-11-19 05:37 | RADRPT ---
EXAM DATE/TIME: 11/19/2016 03:25 [facility] COMPARISON: CHEST SINGLE AP, November 18, 2016, 7:46. INDICATIONS : Shortness of breath, possible pulmonary disease. MEDICAL HISTORY : Chronic obstructive pulmonary disease. SURGICAL HISTORY : None. ENCOUNTER: Subsequent ACUITY: 2 days PAIN SCORE: Non-responsive. LOCATION: Bilateral chest FINDINGS: The heart size is enlarged. The ET tube and NG tube are well placed. This increased density throughou t the lungs being worse at the bases. CONCLUSION: 1. Cardiomegaly. 2. Diffuse areas of consolidation or atelectasis likely related to diffuse processes such as edema. Abdon Issa MD on November 19, 2016 at 5:34 Board Certified Radiologist. This report was verified electronically.
[2016-11-19] MEDS: PIPERACIL-TAZO 2.25 GM PREMIX 50 ML IV SCH ×4 (06:04→23:43)
[2016-11-19] MEDS: fentaNYL DRIP 250 ML IV SCH (06:04)
[2016-11-19] MEDS: INSULIN ASPART SUPPLEMENTAL SCALE SQ SCH ×4 (06:35→23:38)
[2016-11-19 07:17] LABS: AUTOMATED NEUTROPHIL # 6.3 TH/MM3 (1.8-7.7); BASOPHIL % 0.1 % (0.0-2.0); EOSINOPHIL % 0.5 % (0.0-4.0); LYMPH % 6.4 % (9.0-44.0); LYMPHOCYTE # 0.4 TH/MM3 (1.0-4.8); MEAN CELL VOLUME 85.8 FL (80.0-100.0); MEAN CORPUSCULAR HEMOGLOBIN 27.6 PG (27.0-34.0); MEAN CORPUSCULAR HGB CONC 32.1 % (32.0-36.0); MONO % 2.7 % (0.0-8.0); NEUT % 90.3 % (16.0-70.0); PLATELET COUNT 129 TH/MM3 (150-450); RED BLOOD COUNT 3.37 MIL/MM3 (4.50-5.90); RED CELL DISTRIBUTION WIDTH 18.6 % (11.6-17.2)
[2016-11-19 07:25] LABS: HEMO FLAGS AUTO DIFF
[2016-11-19] MEDS: APIXABAN 2.5 MG TABLET PO SCH ×2 (08:01→20:00)
[2016-11-19] MEDS: PANTOPRAZOLE SODIUM 40 MG VIAL IV SCH (08:01)
[2016-11-19] MEDS: SODIUM CHLORIDE 0.9% FLUSH 5 ML FLUSH IVF SCH ×2 (08:02→20:01)
[2016-11-19] MEDS: CHLORHEXIDINE 0.12% (ORAL KIT) 15 ML CUP MT SCH ×2 (08:02→20:12)
[2016-11-19] MEDS: DILTIAZEM INJ 125 MG in SODIUM CHLORIDE 0.9% INJ 100 ML IV SCH ×2 (08:03→13:53)
[2016-11-19 08:14] LABS: BANDS 2 % (0-6); CORRECTED NUCLEATED RBC 1 /100 WBC (0-0); NEUTROPHIL # MANUAL DIFF 6.6 TH/MM3 (1.8-7.7); POLYS (SEG NEUTROPHILS) 92 % (16-70); WBC DIFF SAMPLE 100
[2016-11-19 08:15] LABS: OVALOCYTES 1+ (NORMAL); PLATELET ESTIMATE SMEAR LOW (NORMAL); PLATELET MORPHOLOGY NORMAL (NORMAL); SCAN/DIFF FINAL DIFF MANUAL
[2016-11-19 08:23] LABS: ALKALINE PHOSPHATASE 153 U/L (45-117); ALT (GPT) 27 U/L (12-78); ANION GAP 15 MEQ/L (5-15); AST (GOT) 14 U/L (15-37); BICARBONATE 21.8 MEQ/L (21.0-32.0); BLOOD UREA NITROGEN 93 MG/DL (7-18); CHLORIDE 100 MEQ/L (98-107); GLOMERULAR FILTRATION RATE 24 ML/MIN (>89); POTASSIUM 4.4 MEQ/L (3.5-5.1); SODIUM (NA) 137 MEQ/L (136-145); TOTAL BILIRUBIN ADULT 0.6 MG/DL (0.2-1.0)
[2016-11-19] MEDS ORDERED: BUMETANIDE INJ 1 MG/4 ML VIAL IV PUSH SCH (09:00)
[2016-11-19] MEDS ORDERED: NOREPINEPHRINE-DEXTROSE DRIP 250 ML IV ONE (09:23)
--- NOTE | 2016-11-19 09:44 | HHI.CCPN ---
Subjective Remarks/Hospital Course The patient is a 81-year-old male with multiple medical comorbidities which include CHF, COPD, chronic kidney disease with history in the recent past of hemodialysis which was later discontinued, hypertension, hyperlipidemia, diabetes mellitus, BPH and peripheral neuropathy. He presented to [facility] ED from a local nursing facility for respiratory distress. Upon ambulance services arrival the patient had O2 saturation in the 70s and he was briefly placed on a non-rebreather mask where his O2 saturation improved to up in the 80s. However, the patient was tachycardic with heart rate in the 150s. He had a GCS score of 4 and was subsequently intubated by ambulance services prior to arrival after he was given etomidate and Ativan. His initial systolic blood pressure in the 80s and the patient responded to fluid resuscitation and his last blood pressure is 107/55 with a MAP of 72. The patient's blood sugar prior to arrival was 93. CT scan of the brain was obtained which was negative for acute process. Chest x-ray showed ET tube above the diana and pulmonary infiltrates, right greater than left. ABG post-intubation showed a pH of 7.20, CO2 58, pAO2 235, bicarb 22, saturation of 95% on assist control ventilation with a respiratory rate of 16, tidal volume 500, PEEP of 5 and FIO2 of 100%. His laboratory data is significant for acute on chronic kidney disease with BUN of 90, creatinine 2.65 and potassium of 5.3. His BNP was elevated at 395. EKG in the ER showed atrial fibrillation with RVR at a rate of 134 beats per minute. In the ED the patient was placed on fentanyl infusion for sedation which is currently at 80 mics. In addition he was given vancomycin and Zosyn. The patient also had nonocclusive thrombus of the right IJ vein in September and was placed on Eliquis 2.5 mg b.i.d., part of his home medications. The rest of the history is limited as the patient is intubated. 11/19: Patient remains intubated sedated with fentanyl. Tachycardic and heart rate 160s. Systolic blood pressure low at 70s. Levophed started. Urine output 1.8 L in 24 hours urine creatinine remains elevated 93/2.5. Chest x-ray shows pulmonary edema. EF 40-45% on 2-D echo. I will discontinue Bumex daily and started on Bumex infusion Objective Vital Signs Date Time Temp Pulse Resp B/P Pulse Ox O2 Delivery O2 Flow Rate FiO2 11/19/16 07:50 95 40 11/19/16 06:00 124 11/19/16 04:00 97.5 14 110/58 11/18/16 13:13 Auto-Vent 11/18/16 04:30 15 Intake and Output 11/18/16 11/18/16 11/19/16 08:00 16:00 00:00 Intake Total 438 ml 1343 ml Output Total 750 ml 475 ml Balance -312 ml 868 ml Result Diagram: 11/19/16 0456 11/19/16 0453 Other Results Microbiology Date/Time Procedure Status Source Growth 11/18/16 04:45 Legionella Antigen - Final Complete Urine Catheterized Urine PRESUMPTIVE NEGATIVE FOR LEGIONELLA P... 11/18/16 04:45 Streptococcus pneumoniae Antigen (M - Final Complete Urine Catheterized Urine PRESUMPTIVE NEGATIVE FOR STREPTOCOCCU... 11/18/16 05:45 Influenza Types A,B Antigen (ROLY) - Final Complete Nasal Aspirate NEGATIVE FOR FLU A AND B ANTIGEN.... Laboratory Tests Test 11/18/16 14:41 Blood Gas Puncture Site LT RADIAL Blood Gas Patient Temperature 98.6 Blood Gas HCO3 22 mmol/L (22-26) Blood Gas Base Excess -2.6 mmol/L (-2-2) Blood Gas Oxygen Saturation 97 % (90-100) Arterial Blood pH 7.39 (7.380-7.420) Arterial Blood Partial 37 mmHg (38-42) Pressure CO2 Arterial Blood Partial 156 mmHg Pressure O2 (61-120) Arterial Blood Oxygen Content 12.5 Vol % (12.0-20.0) Arterial Blood 2.0 % (0-4) Carboxyhemoglobin Arterial Blood Methemoglobin 0.9 % (0-2) Blood Gas Hemoglobin 9.0 G/DL (12.0-16.0) Oxygen Delivery Device VENTILATOR Blood Gas Ventilator Setting Blood Gas Inspired Oxygen 50 % Objective Remarks PHYSICAL EXAMINATION GENERAL: 81-year-old male intubated for respiratory failure. Now tachycardic hypotensive HEENT: Atraumatic, normocephalic pupil equal, round, reactive to light. Oral mucosa is moist NECK: Supple. No JVD, adenopathy or thyromegaly. Trachea midline. Orally intubated. CARDIOVASCULAR: Tachycardic, irregularly, irregular. No murmurs, rubs or gallops noted. PULMONARY: Bilateral equal air entry with few coarse breath sounds. Abdomen entry is diminished predominantly at the bases ABDOMEN: Soft, obese, nontender, no distension. Positive bowel sounds. EXTREMITIES: No cyanosis, clubbing, 2+ edema of lower extremity and also edema of right upper extremity noted as well. NEURO: Patient is intubated sedated but wakes up and follows commands A/P Assessment and Plan IMPRESSION Acute hypercapnic and hypoxemic respiratory failure. Atrial fibrillation with rapid ventricular response Hypertension Congestive heart failure Diffuse pulmonary infiltrates, differential diagnosis fluid overload vs infectious process. Possible aspiration pneumonia. Anemia of chronic disease. Acute on chronic kidney disease. Nonocclusive thrombus of the right IJ vein from September. History of CHF. COPD. Hypertension. Diabetes mellitus/dyslipidemia. BPH. Gout. Obstructive sleep apnea. Morbid obesity. RECOMMENDATIONS Neuro: -Continue with fentanyl infusion for sedation and daily sedation vacation. Monitor neuro status closely. -Daily sedation vacation -CT scan of the brain in the ED negative for acute process. Resp: -Continue with vent support and maintain sats above 92%. -Bronchodilators in the form of DuoNeb q. 6 and ICU vent bundle. -Holding p.o. prednisone and the patient was placed on hydrocortisone 100 mg IV q. 8. CVS: -Continue Cardizem infusion titrated to keep heart rate less than 110 -IV digoxin 0.25 mg 1 -Start Levophed and add vasopressin to keep map above 65 -2D Echo -Ef 40-45% GI: -Start tube feeds with Nepro. IV Protonix for GI prophylaxis : -Monitor renal function, I&O's and avoid nephrotoxins. -Nephrology service Dr. Delgadillo following-started on Bumex 1 mg daily-DC today -Bumex 2 mg IV 1 and start Bumex infusion 0.5 mg per hour ID: -Continue with broad-spectrum antibiotics in the form of Zosyn and Zyvox. -patient was given vancomycin and Zosyn in the ED. -Follow up on the blood and urine cultures. His nasal aspirate for influenza is negative. -Check sputum culture with gram stain and will obtain a strep pneumonia and Legionella urinary antigen. Heme: Monitor CBC and coags. Endo: -Sliding scale insulin with Accu-Chek for glycemic control. Proph: -Doppler US LE and RUE r/o DVT-negative -GI prophylaxis with Protonix 40 mg daily and DVT prophylaxis with SCDs and resumed Eliquis 2.5 mg b.i.d. Critical care time 40 minutes excluding procedures. Tarun Coppola MD Nov 19, 2016 09:44
--- NOTE | 2016-11-19 09:53 | HHI.NPPN ---
Subjective History of Present Illness 81 year old with CKD/CHF/COPD Objective Data Data 11/18/16 11/19/16 19:00 07:00 Intake Total 438 ml 2219 ml Output Total 750 ml 1025 ml Balance -312 ml 1194 ml IV Total 438 ml 2219 ml Output Urine Total 750 ml 1025 ml # Voids 0 # Bowel Movements 1 0 Vital Signs Date Time Temp Pulse Resp B/P Pulse Ox O2 Delivery O2 Flow Rate FiO2 11/19/16 07:50 95 40 11/19/16 06:00 124 11/19/16 04:14 100 40 11/19/16 04:00 113 11/19/16 04:00 40 11/19/16 04:00 97.5 113 14 110/58 100 11/19/16 02:00 103 11/19/16 01:02 99 40 11/19/16 00:00 40 11/19/16 00:00 99.0 106 14 110/59 98 11/19/16 00:00 106 11/18/16 22:00 111 11/18/16 20:00 123 11/18/16 20:00 40 11/18/16 20:00 98.8 123 14 105/61 100 11/18/16 19:41 100 40 11/18/16 16:00 40 11/18/16 15:59 100 50 11/18/16 14:00 114 11/18/16 14:00 98.1 115 14 112/56 100 11/18/16 14:00 40 11/18/16 13:13 99.0 120 20 107/55 100 Auto-Vent 11/18/16 12:00 106 20 105/56 100 Auto-Vent 11/18/16 11:30 114 18 92/50 99 Auto-Vent 11/18/16 11:25 99 50 11/18/16 11:05 100 100 11/18/16 10:15 99.3 130 20 99/55 99 Auto-Vent -: 11/19/16 0456 11/19/16 0453 Physical Exam General Appearance: Well Developed Neck Neck Exam: Neck Supple Pulmonary Resp Exam: Decreased Bases Cardiology CV Exam: Arrhythmia Gastrointestinal/Abdomen GI Exam: Soft, Bowel Sounds Present Extremeties Extremities Exam: Moderate Edema Assessment/Plan Problem List: (1) Acute renal failure Plan: Patient has nonoliguric. responding to Bumex creatinine declining has stage 4 CKD K Normal continue supportive care d/w Dr. Coppola placing him on Bumex gtt (2) CKD (chronic kidney disease) stage 4, GFR 15-29 ml/min Plan: Known history of kidney disease as above due to diabetes (3) CHF (congestive heart failure) Plan: On the ventilator (4) Atrial fibrillation with RVR Plan: Continue to monitor (5) Respiratory failure Plan: On ventilator (6) Pneumonia (7) Hyperkalemia Plan: resolved Problem Qualifiers (1) Acute renal failure: Qualified Code: N17.0 - Acute renal failure with tubular necrosis (2) Respiratory failure: Qualified Code: J96.01 - Acute respiratory failure with hypoxia Niko Delgadillo MD Nov 19, 2016 09:53
[2016-11-19] MEDS ORDERED: DIGOXIN 0.5 MG/2 ML VIAL IV PUSH ONE (10:00)
[2016-11-19] MEDS ORDERED: BUMETANIDE INJ 1 MG/4 ML VIAL IV PUSH ONE (10:00)
[2016-11-19] MEDS ORDERED: MIDAZOLAM HCL 5 MG/ML VIAL (1 ML) ONE (10:11)
[2016-11-19] MEDS ORDERED: ALBUMIN HUMAN 25% 25 GM/100 ML BAGP IV ONE (10:15)
--- NOTE | 2016-11-19 10:31 | PD.PROCEDR ---
Central Line Procedure REASON FOR PROCEDURE Central venous access PROCEDURE PERFORMED Central line placement: R subclavian central line CONSENT Informed consent for procedure was obtained. The risks and benefits of the procedure were discussed to include but limited to bleeding, clot formation, infection, and even . ANESTHESIA Local injection of 1% Lidocaine DESCRIPTION OF THE PROCEDURE The patient was placed in supine, mild Trendelenburg position. The area was exposed and cleansed with ChloraPrep, times two. Large sterile drape was used to cover the patient, with the site exposed, under sterile conditions including cap, face mask, sterile gown, and sterile gloves. On single attempt, the introducer needle was inserted with negative pressure in syringe and venous flash was obtained. The guide wire was then advanced without any restriction and the needle was removed. The dilator was used without any complications. Using Seldinger technique the 20 CM 7F triple lumen catheter was advanced over the guide wire to a depth of 17 centimeters. The guide wire was removed. All ports were aspirated with dark venous blood return and flushed easily with sterile saline. All ports were capped. Antibiotic disc was placed around central line at puncture site. The central line was secured to the skin with two interrupted 2.0 silk sutures. The area was bandaged with sterile see- through central line bandage. COMPLICATIONS: No apparent complications ESTIMATED BLOOD LOSS: Less than 1 cc. Tarun Coppola MD Nov 19, 2016 10:31
--- NOTE | 2016-11-19 11:00 | RADRPT ---
EXAM DATE/TIME: 11/19/2016 10:34 [facility] COMPARISON: CHEST SINGLE AP, November 19, 2016, 3:25. INDICATIONS : Central line placement. MEDICAL HISTORY : Cardiovascular disease. Chronic obstructive pulmonary disease. SURGICAL HISTORY : None. ENCOUNTER: Initial ACUITY: 1 day PAIN SCORE: Non-responsive. LOCATION: Right chest FINDINGS: Interval placement of right subclavian catheter with tip projected over the distal superior vena cava . No evidence of pneumothorax. Endotracheal tube tip well above the diana. Gastric tube traverse the [id number]. Patchy infiltrates in the left lower lung with slight improved aeration compared to prior. The right lung is clear. CONCLUSION: Right subclavian catheter in good position. No evidence of pneumothorax. Héctor Noble MD on November 19, 2016 at 10:58 Board Certified Radiologist. This report was verified electronically.
[2016-11-19] MEDS: ALBUMIN HUMAN 25% 25 GM/100 ML BAGP IV SCH ×2 (11:08→20:02)
[2016-11-19] MEDS: LINEZOLID 600 MG PREMIX 300 ML IV SCH ×2 (11:12→23:40)
[2016-11-19] MEDS: VASOPRESSIN INJ 40 UNITS in DEXTROSE 5% IN WATER 100ML INJ 98 ML IV SCH ×2 (11:13)
[2016-11-19] MEDS: BUMETANIDE INJ 100 ML IV SCH (11:13)
[2016-11-19] MEDS ORDERED: AMIODARONE INJ 150 MG in DEXTROSE 5% IN WATER 100ML INJ 97 ML IV ONE ×2 (17:00)
[2016-11-19] MEDS: AMIODARONE INJ 450 MG in DEXTROSE 5% IN WATE(EXCEL) INJ 241 ML IV SCH ×2 (17:41)
[2016-11-19] MEDS: MIDAZOLAM 100 MG/ML INJ 100 ML IV SCH (23:41)
[2016-11-20] VITALS (21 sets, daily range): BP systolic 101–151; BP diastolic 58–67; PULSE 46–131; RESP 14–24; TEMP 96.4–97.8; O2SAT 98–100
[2016-11-20] MEDS: AMIODARONE INJ 450 MG in DEXTROSE 5% IN WATE(EXCEL) INJ 241 ML IV SCH ×4 (00:50→15:20)
[2016-11-20] MEDS: VASOPRESSIN INJ 40 UNITS in DEXTROSE 5% IN WATER 100ML INJ 98 ML IV SCH ×4 (00:50→19:46)
[2016-11-20] MEDS: SODIUM CHLOR 0.9% 1000 ML INJ 1,000 ML IV SCH (02:23)
[2016-11-20] MEDS: HYDROCORTISONE SOD SUCCINATE 100 MG VIAL IV PUSH SCH ×3 (02:33→17:09)
[2016-11-20] MEDS: CHLORHEXIDINE GLUCONATE 2 % 1 PACK (2 CLOTHS) TOP SCH (03:42)
[2016-11-20] MEDS: RESP: ALBUTEROL 2.5 MG/IPRATROPIUM 0.5 MG NEB (SCH) NEB ×4 (04:00→21:01)
[2016-11-20] MEDS: INSULIN ASPART SUPPLEMENTAL SCALE SQ SCH ×4 (05:29→23:50)
[2016-11-20] MEDS: fentaNYL DRIP 250 ML IV SCH (05:30)
--- NOTE | 2016-11-20 05:43 | RADRPT ---
EXAM DATE/TIME: 11/20/2016 04:32 [facility] COMPARISON: CHEST SINGLE AP, November 19, 2016, 10:34. INDICATIONS : Evaluate for respiratory disease. MEDICAL HISTORY : Cardiovascular disease. Chronic obstructive pulmonary disease. SURGICAL HISTORY : None. ENCOUNTER: Subsequent ACUITY: 3 days PAIN SCORE: Non-responsive. LOCATION: chest FINDINGS: Bilateral effusions left greater right and basilar consolidation noted, left greater than right. Card iomegaly and aortic calcification. Endotracheal tube tip at the inferior margin of clavicles. Right s ubclavian line tip overlies the SVC. NG tube courses beneath the diaphragm. CONCLUSION: Increasing left basilar airspace disease. Paras Victor MD on November 20, 2016 at 5:41 Board Certified Radiologist. This report was verified electronically.
[2016-11-20 06:58] LABS: AUTOMATED NEUTROPHIL # 7.6 TH/MM3 (1.8-7.7); BASOPHIL % 0.2 % (0.0-2.0); EOSINOPHIL % 0.2 % (0.0-4.0); HEMATOCRIT 27.2 % (39.0-51.0); LYMPH % 3.3 % (9.0-44.0); LYMPHOCYTE # 0.3 TH/MM3 (1.0-4.8); MEAN CELL VOLUME 86.1 FL (80.0-100.0); MEAN CORPUSCULAR HEMOGLOBIN 27.6 PG (27.0-34.0); MONO % 2.9 % (0.0-8.0); NEUT % 93.4 % (16.0-70.0); PLATELET COUNT 126 TH/MM3 (150-450); RED BLOOD COUNT 3.16 MIL/MM3 (4.50-5.90); RED CELL DISTRIBUTION WIDTH 17.8 % (11.6-17.2); WHITE BLOOD COUNT 8.1 TH/MM3 (4.0-11.0)
[2016-11-20 07:11] LABS: HEMO FLAGS AUTO DIFF
[2016-11-20 07:31] LABS: ALKALINE PHOSPHATASE 124 U/L (45-117); ALT (GPT) 20 U/L (12-78); ANION GAP 16 MEQ/L (5-15); AST (GOT) 7 U/L (15-37); BICARBONATE 21.2 MEQ/L (21.0-32.0); BLOOD UREA NITROGEN 104 MG/DL (7-18); CHLORIDE 99 MEQ/L (98-107); GLOMERULAR FILTRATION RATE 24 ML/MIN (>89); MAGNESIUM 1.8 MG/DL (1.5-2.5); POTASSIUM 3.6 MEQ/L (3.5-5.1); SODIUM (NA) 136 MEQ/L (136-145); TOTAL BILIRUBIN ADULT 0.8 MG/DL (0.2-1.0)
[2016-11-20] MEDS: CHLORHEXIDINE 0.12% (ORAL KIT) 15 ML CUP MT SCH ×2 (08:00→19:43)
[2016-11-20 08:01] LABS: BANDS 6 % (0-6); EOSINOPHILS 1 % (0-4); MYELOCYTES 3 % (0-0); NEUTROPHIL # MANUAL DIFF 7.8 TH/MM3 (1.8-7.7); POLYS (SEG NEUTROPHILS) 87 % (16-70); WBC DIFF SAMPLE 100
[2016-11-20 08:04] LABS: OVALOCYTES 1+ (NORMAL); STOMATOCYTES 1+ (NORMAL); TEARDROP RBCS 1+ (NORMAL)
[2016-11-20 08:05] LABS: PLATELET ESTIMATE SMEAR LOW (NORMAL); PLATELET MORPHOLOGY NORMAL (NORMAL); SCAN/DIFF FINAL DIFF MANUAL
[2016-11-20] MEDS: PANTOPRAZOLE SODIUM 40 MG VIAL IV SCH (09:00)
[2016-11-20] MEDS: SODIUM CHLORIDE 0.9% FLUSH 5 ML FLUSH IVF SCH ×2 (10:09→21:00)
[2016-11-20] MEDS: ALBUMIN HUMAN 25% 25 GM/100 ML BAGP IV SCH ×2 (10:10→19:44)
[2016-11-20] MEDS: APIXABAN 2.5 MG TABLET PO SCH ×2 (10:10→19:44)
[2016-11-20] MEDS: PIPERACIL-TAZO 2.25 GM PREMIX 50 ML IV SCH ×3 (10:11→23:39)
--- NOTE | 2016-11-20 11:05 | HHI.NPPN ---
Subjective History of Present Illness 81 year old with CKD/CHF/COPD Objective Data Data 11/19/16 11/20/16 18:59 06:59 Intake Total 913 ml 1211 ml Output Total 350 ml 1050 ml Balance 563 ml 161 ml IV Total 913 ml 1011 ml Other 200 ml Output Urine Total 350 ml 1050 ml Vital Signs Date Time Temp Pulse Resp B/P Pulse Ox O2 Delivery O2 Flow Rate FiO2 11/20/16 10:00 123 11/20/16 08:00 40 11/20/16 08:00 116 11/20/16 07:20 100 40 11/20/16 06:00 124 11/20/16 04:06 100 40 11/20/16 04:00 96.4 46 20 151/67 100 11/20/16 04:00 103 11/20/16 04:00 40 11/20/16 03:00 97.6 131 24 140/60 98 11/20/16 02:00 112 11/20/16 01:02 99 40 11/20/16 00:00 106 11/20/16 00:00 40 11/20/16 00:00 97.8 106 22 123/58 98 11/19/16 23:00 97.8 106 22 123/58 98 11/19/16 22:00 115 11/19/16 20:00 99.1 117 22 113/53 98 11/19/16 20:00 117 11/19/16 20:00 40 11/19/16 19:32 98 40 11/19/16 19:00 99.1 117 22 113/53 98 11/19/16 18:00 147 11/19/16 16:09 99 40 11/19/16 16:00 132 11/19/16 16:00 40 11/19/16 14:00 122 11/19/16 12:20 100 40 11/19/16 12:00 40 -: 11/20/16 0545 11/20/16 0545 Physical Exam General Appearance: Well Developed Neck Neck Exam: Neck Supple Pulmonary Resp Exam: Decreased Bases Cardiology CV Exam: Arrhythmia Gastrointestinal/Abdomen GI Exam: Soft, Bowel Sounds Present Extremeties Extremities Exam: Moderate Edema Assessment/Plan Problem List: (1) Acute renal failure Plan: Patient has nonoliguric.on Bumex gtt 0.5 MG/HR good UOP creatinine stable has stage 4 CKD K Normal continue supportive care (2) CKD (chronic kidney disease) stage 4, GFR 15-29 ml/min Plan: Known history of kidney disease as above due to diabetes (3) CHF (congestive heart failure) Plan: On the ventilator (4) Atrial fibrillation with RVR Plan: Continue to monitor (5) Respiratory failure Plan: On ventilator (6) Pneumonia (7) Hyperkalemia Plan: resolved Problem Qualifiers (1) Acute renal failure: Qualified Code: N17.0 - Acute renal failure with tubular necrosis (2) Respiratory failure: Qualified Code: J96.01 - Acute respiratory failure with hypoxia Niko Delgadillo MD Nov 20, 2016 11:05
[2016-11-20] MEDS: LINEZOLID 600 MG PREMIX 300 ML IV SCH ×2 (11:46→23:40)
--- NOTE | 2016-11-20 14:21 | PD.CONS ---
Consult Service Palliative Care . Consult Requested By Dr. Coppola . Primary Care Physician Jesse Sutton M.D. Reason for Consultation a. To assist with evaluation and management of symptoms including: dyspnea, weakness. b. To assist medical decision maker(s) with: better understanding of current medical conditions; weighing benefits/burdens of medical treatment options; making medical treatment decisions. . HPI History of Present Illness Mr. Monahan is an 81 year old male with past medical history of COPD, CHF, diabetes, chronic kidney disease, BPH, peripheral neuropathy, hypertension, hyperlipidemia, gout, obstructive sleep apnea and glaucoma. Pertinent history dates back to 08/27/16 - 08/31/15 when patient was briefly admitted for sciatic pain and G.I. bleed, discharge home. He was then admitted to [facility] on 09/10/16 with generalized weakness, G.I. bleed with erosive esophagitis requiring transfusion, leukocytosis, aspiration pneumonia, CHF, renal failure had 3 dialysis treatments during this hospitalization with renal improvement. Patient was discharged to [facility] for inpatient rehab on 10/08/16 - 10/28/16. From [place] he was transferred to [facility]. He was found to have a nonocclusive thrombus of the right IJ vein in September, started on eloquence 2.5 mg BID. Patient presented to [facility] emergency department on 11/18/16 with shortness of breath. Upon EMS arrival patient's oxygen saturation's were noted to be in the 70s, pulse in the 150s GCS was 4, blood sugar 93. He was placed on non-rebreather sats only increased into the 80s. Patient was intubated by ambulance services. Upon arrival to the emergency department the patient appeared to have aspirated. CT brain was negative. Chest x-ray pulmonary infiltrates, right greater than left. Significant laboratory findings included: BUN 90, creatinine 2.65, potassium 5.3. BNP 395. EKG revealed atrial fibrillation with RVR rate 134. Patient was started on vancomycin and Zosyn. Patient was admitted to ICU for acute respiratory failure, atrial fibrillation with RVR, aspiration pneumonia, acute on chronic kidney disease. Patient remains in ICU on mechanical ventilation with pulmonary edema. He remains on Vasopressin, amiodarone, Bumex, fentanyl and Versed drips. Cardiogram revealed ejection fraction 40 45%. Cultures negative to date. Creatinine 2.54, GFR 24 , albumin 2.6. Palliative care is consulted to assist with further clarification of treatment goals and symptom management. Patient seen and examined in ICU. Susan at bedside. has a good understanding of current medical condition. She feels the patient is declining. She elects NO CODE status. She reports that the patient's 2 daughters will be arriving in the next 24 hours from out of town. She would like them to be available to assist in upcoming decision-making. She reports that she knows that her is declining, she feels that she will know when it is time to stop all of this. She is considering transition to comfort focused care and withdrawal of life support if the patient shows no clinical signs of improvement in the coming days. We agreed to reevaluate his status on Wednesday11/23/16, she feels this will be good his children will be here and we can have further discussions. She is certain the patient would not want tracheostomy or feeding tube. She feels that his quality of life has been declining significantly since admission in August 2016. She is very appreciative for the time spent, palliative care number provided. . Function/Cognitive Trajectory Patient has had ongoing trajectory of decline since his admission in August 2016. indicates just prior to admission he was requiring Marilyn lift for transfers. He was unable to perform any ADLs without assistance. His appetite was decreasing. Lethargy worsening. She reports that he was able to stand with parallel bars and four-person assist for a brief time. She reports that he has never been able to get back on his feet since August. . Review of Systems ROS Limitations: Intubated Constitutional: COMPLAINS OF: Fatigue, Weight loss, Change in appetite ( decreased), Generalized weakness Endocrine: COMPLAINS OF: Heat/cold intolerance Respiratory: COMPLAINS OF: Cough, Sputum production, Shortness of breath Cardiovascular: COMPLAINS OF: Dyspnea on Exertion, Lower Extremity Edema ( generalized edema, weeping edema) Musculoskeletal: COMPLAINS OF: Back pain Hematologic/Lymphatics: COMPLAINS OF: Bruising Neurologic: COMPLAINS OF: Paresthesias, Poor Balance Psychiatric: COMPLAINS OF: Agitation Past Family Social History Coded Allergies: Niacin (Unverified Allergy, Unknown, 10/09/16) Past Medical History CHF COPD Acute on chronic renal failure Hypertension Hyperlipidemia Diabetes Peripheral neuropathy BPH Glaucoma Gout . Past Surgical History Bilateral cataract surgery Penile implant Teeth extractions Permacath for dialysis x 3 treatments during previous hospitalization . Reported Medications Reported Meds & Active Scripts Active Prednisone 20 Mg Tab 20 Mg PO DAILY Ultram (Tramadol HCl) 50 Mg Tab 50 Mg PO Q6H PRN Ritalin IR (Methylphenidate HCl) 5 Mg Tab 5 Mg PO BID@07,12 Bumetanide 1 Mg Tab 1 Mg PO BID Levemir Inj (Insulin Detemir) 1,000 unit/ 10 ML Vial 25 Units SQ DAILY 30 Days Cardizem (Diltiazem HCl) 30 Mg Tab 30 Mg PO Q6HR Coreg (Carvedilol) 12.5 Mg Tab 12.5 Mg PO BID Zyloprim (Allopurinol) 300 Mg Tab 150 Mg PO DAILY Timolol Opth Drops 0.5 % Soln 1 Drop EACH EYE DAILY Tamsulosin (Tamsulosin HCl) 0.4 Mg Cap 0.4 Mg PO DAILY Simvastatin 20 Mg Tab 20 Mg PO HS Protonix (Pantoprazole Sodium) 40 Mg Tab 40 Mg PO DAILY Docusate Sodium 100 Mg Cap 100 Mg PO BID Eliquis (Apixaban) 2.5 Mg Tab 2.5 Mg PO BID . Current Medications Medications (Trade) Dose Ordered Sig/Ron Route Start Time Stop Time Status Last Admin Fentanyl Citrate 250 ml @ 0 mls/hr TITRATE IV 11/18/16 05:30 11/20/16 05:30 (NS 1000 ml Inj) 1,000 ml @ 42 mls/hr [id number] IV 11/18/16 09:30 11/20/16 02:23 (NS Flush) 2 ml UNSCH PRN IVF 11/18/16 09:30 (NS Flush) 2 ml BID IVF 11/18/16 21:00 11/20/16 10:09 (Peridex 0.12% Liq) 15 ml BID@08,20 MT 11/18/16 20:00 11/20/16 08:00 (Protonix Inj) 40 mg DAILY IV 11/18/16 10:00 11/20/16 09:00 (NovoLOG SUPPLEMENTAL SCALE) 1 Q6HR SQ 11/18/16 12:00 11/20/16 12:19 (SoluCORTEF INJ) 100 mg Q8H IV PUSH 11/18/16 10:00 11/20/16 10:00 (D50w (Vial) Inj) 25 ml UNSCH PRN IV PUSH 11/18/16 09:30 11/18/16 12:55 Glucagon 1 mg 1 mg UNSCH PRN OTHER 11/18/16 09:30 Linezolid 300 ml @ 300 mls/hr Q12H IV 11/18/16 11:30 11/20/16 11:46 (Zosyn 2.25 Gm Premix) 50 ml @ 100 mls/hr Q6H IV 11/18/16 11:00 11/20/16 10:11 (Eliquis) 2.5 mg BID PO 11/18/16 14:00 11/20/16 10:10 Miscellaneous Information 1 Q361D XX 11/18/16 13:45 (Chlorhexidine 2% Cloth) 3 pack Taper DAILY@04 TOP 11/19/16 04:00 11/15/17 03:59 11/20/16 03:42 Chlorhexidine Gluconate 3 pack 3 pack UNSCH PRN TOP 11/18/16 13:45 Diltiazem HCl 125 mg/Sodium Chloride 125 ml @ 0 mls/hr TITRATE IV 11/18/16 21:30 11/19/16 13:53 (Pitressin Inj/ D5W 100 ml Inj) 100 ml @ 0 mls/hr Q0M IV 11/19/16 09:47 11/20/16 00:50 Albumin Human 25 gm 25 gm Q12HR IV 11/19/16 10:00 11/21/16 09:59 11/20/16 10:10 Bumetanide 100 ml @ 2 mls/hr CONTINUOUS IV 11/19/16 12:00 11/19/16 11:13 Amiodarone HCl 450 mg/Dextrose 250 ml @ 0 mls/hr CONTINUOUS IV 11/19/16 17:00 11/20/16 00:50 (Versed Inj) 100 ml @ 0 mls/hr TITRATE IV 11/19/16 23:30 11/19/16 23:41 . Family History Son of AIDS. . Substance Use Tobacco: Alcohol: Prescription med abuse: Illicits: Psychosocial History Patient raised in [place]. He worked in [employer]. Most recently he worked with [employer], until they were sold. Patient has lived in [place] for nearly 30 years. to his current for 17 years. Has 2 daughters, Liliya ([place]) and Lolita ([place]) from his 1st marriage, 2 step-daughters from his 2nd marriage, and 2 step daughters (Nga lives [facility]) from his current marriage. . Spiritual/Cultural Factors Patient was born Anabaptism, well supported by their churches, his is Buddhism duran. Priests and other clergy have been to visit. . Living Will: Completed, but not made available ( indicates patient has a living will she has no idea where it is.) Health Care Surrogate(s): Patient is incapacitated, will not likely regained capacity. According to [place] statutes, in the absence of written advance directives, health care proxy decision-making falls to the patient's spouse. . Ethical and Legal Issues Patient is incapacitated, will not likely regained capacity. According to [place] statutes, in the absence of written advance directives, health care proxy decision-making falls to the patient's spouse. . Physical Exam Vital Signs Date Time Temp Pulse Resp B/P Pulse Ox O2 Delivery O2 Flow Rate FiO2 11/20/16 12:00 40 11/20/16 12:00 96.4 108 14 140/65 100 11/20/16 12:00 108 11/20/16 11:48 100 40 11/20/16 10:00 123 11/20/16 08:00 40 11/20/16 08:00 116 11/20/16 08:00 96.6 116 14 101/60 100 11/20/16 07:20 100 40 11/20/16 06:00 124 11/20/16 04:06 100 40 11/20/16 04:00 96.4 46 20 151/67 100 11/20/16 04:00 103 11/20/16 04:00 40 11/20/16 03:00 97.6 131 24 140/60 98 11/20/16 02:00 112 11/20/16 01:02 99 40 11/20/16 00:00 106 11/20/16 00:00 40 11/20/16 00:00 97.8 106 22 123/58 98 11/19/16 23:00 97.8 106 22 123/58 98 11/19/16 22:00 115 11/19/16 20:00 99.1 117 22 113/53 98 11/19/16 20:00 117 11/19/16 20:00 40 11/19/16 19:32 98 40 11/19/16 19:00 99.1 117 22 113/53 98 11/19/16 18:00 147 11/19/16 16:09 99 40 11/19/16 16:00 132 11/19/16 16:00 40 11/19/16 14:00 122 11/19/16 11/20/16 19:00 07:00 Intake Total 913 ml 1211 ml Output Total 350 ml 1050 ml Balance 563 ml 161 ml IV Total 913 ml 1011 ml Other 200 ml Output Urine Total 350 ml 1050 ml Exam CONSTITUTIONAL/GENERAL: This is an adequately nourished patient, sedated on mechanical ventilation. TUBES/LINES/DRAINS: ETT, OG, right subclavian central line, Jenkins, bilateral soft wrist restraints, STDs, podus boots. SKIN: pallor. Ecchymoses on upper extremities. Dressing right hand. Stage II pressure ulcer sacrum, not visualized today. Skin temperature appropriate. Not diaphoretic. HEAD: Atraumatic. Normocephalic. EYES: Eyes closed. ENT: unable to adequately assess hearing. Difficult to visualize throat secondary to tubes. NECK: Trachea midline. Supple, nontender. CARDIOVASCULAR: atrial fibrillation on monitor. Rate 90 120 without murmurs, gallops, or rubs. No JVD. RESPIRATORY/CHEST: Symmetric, unlabored respirations on mechanical ventilation. Scattered course breath sounds. Expiratory wheeze noted on left. GASTROINTESTINAL: Abdomen soft, non-tender, nondistended. Protuberant. No guarding. Bowel sounds present. GENITOURINARY: Without palpable bladder distension. MUSCULOSKELETAL: Extremities with 3+ pitting, weeping edema. No mottling or clubbing. LYMPHATICS: No palpable cervical or supraclavicular adenopathy. NEUROLOGICAL: sedated. PSYCHIATRIC: sedated. . Diagnostic Tests Laboratory Laboratory Tests Test 11/18/16 11/18/16 11/18/16 11/18/16 04:45 04:55 04:58 10:50 White Blood Count 7.1 TH/MM3 (4.0-11.0) Red Blood Count 3.52 MIL/MM3 (4.50-5.90) Hemoglobin 9.7 GM/DL (13.0-17.0) Hematocrit 31.0 % (39.0-51.0) Mean Corpuscular Volume 87.9 FL (80.0-100.0) Mean Corpuscular Hemoglobin 27.4 PG (27.0-34.0) Mean Corpuscular Hemoglobin 31.1 % Concent (32.0-36.0) Red Cell Distribution Width 18.1 % (11.6-17.2) Platelet Count 158 TH/MM3 (150-450) Mean Platelet Volume 9.2 FL (7.0-11.0) Neutrophils (%) (Auto) 85.3 % (16.0-70.0) Lymphocytes (%) (Auto) 5.5 % (9.0-44.0) Monocytes (%) (Auto) 7.0 % (0.0-8.0) Eosinophils (%) (Auto) 1.9 % (0.0-4.0) Basophils (%) (Auto) 0.3 % (0.0-2.0) Neutrophils # (Auto) 6.1 TH/MM3 (1.8-7.7) Lymphocytes # (Auto) 0.4 TH/MM3 (1.0-4.8) Monocytes # (Auto) 0.5 TH/MM3 (0-0.9) Eosinophils # (Auto) 0.1 TH/MM3 (0-0.4) Basophils # (Auto) 0.0 TH/MM3 (0-0.2) CBC Comment AUTO DIFF Differential Total Cells 100 Counted Neutrophils % (Manual) 77 % (16-70) Band Neutrophils % 10 % (0-6) Lymphocytes % 3 % (9-44) Monocytes % 7 % (0-8) Eosinophils % 2 % (0-4) Basophils % 1 % (0-2) Neutrophils # (Manual) 6.2 TH/MM3 (1.8-7.7) Differential Comment FINAL DIFF MANUAL Platelet Estimate NORMAL (NORMAL) Platelet Morphology Comment NORMAL (NORMAL) Basophilic Stippling FAINT (NORMAL) Ovalocytes 1+ (NORMAL) Acanthocytes OCC (NORMAL) Prothrombin Time 13.3 SEC (9.8-11.6) Prothromb Time International 1.2 RATIO Ratio Activated Partial 38.3 SEC Thromboplast Time (24.3-30.1) Urine Color YELLOW (YELLW/STRAW) Urine Turbidity HAZY (CLEAR) Urine pH 5.0 (5.0-8.5) Urine Specific [place] 1.013 (1.002-1.035) Urine Protein NEG mg/dL (NEG-TRACE) Urine Glucose (UA) NEG mg/dL (NEG) Urine Ketones NEG mg/dL (NEG) Urine Occult Blood NEG (NEG) Urine Nitrite NEG (NEG) Urine Bilirubin NEG (NEG) Urine Urobilinogen LESS THAN 2.0 MG/DL (LESS THAN 2.0) Urine Leukocyte Esterase NEG (NEG) Urine RBC LESS THAN 1 /hpf (0-3) Urine WBC LESS THAN 1 /hpf (0-5) Urine Squamous Epithelial <1 /hpf (0-5) Cells Urine Bacteria RARE /hpf (NONE) Urine Hyaline Casts 5 /lpf (RARE) Urine Mucus FEW /lpf (OCC) Microscopic Urinalysis Comment CATH-CULTURE IND Sodium Level 135 MEQ/L (136-145) Potassium Level 5.3 MEQ/L (3.5-5.1) Chloride Level 100 MEQ/L (98-107) Carbon Dioxide Level 25.1 MEQ/L (21.0-32.0) Anion Gap 10 MEQ/L (5-15) Blood Urea Nitrogen 90 MG/DL (7-18) Creatinine 2.65 MG/DL (0.60-1.30) Estimat Glomerular Filtration 23 ML/MIN (>89) Rate Random Glucose 80 MG/DL (74-106) Calcium Level 8.0 MG/DL (8.5-10.1) Magnesium Level 1.8 MG/DL (1.5-2.5) Total Bilirubin 0.5 MG/DL (0.2-1.0) Aspartate Amino Transf 23 U/L (15-37) (AST/SGOT) Alanine Aminotransferase 31 U/L (12-78) (ALT/SGPT) Alkaline Phosphatase 156 U/L (45-117) Total Creatine Kinase 19 U/L (39-308) 21 U/L (39-308) Troponin I 0.05 NG/ML 0.09 NG/ML (0.02-0.05) (0.02-0.05) B-Type Natriuretic Peptide 395 PG/ML (0-100) Total Protein 4.7 GM/DL (6.4-8.2) Albumin 1.8 GM/DL (3.4-5.0) Lipase 43 U/L (73-393) Lactic Acid Level 1.0 mmol/L (0.4-2.0) Blood Gas Puncture Site LT BRACHIAL Blood Gas Patient Temperature 98.6 Blood Gas HCO3 22 mmol/L (22-26) Blood Gas Base Excess -4.9 mmol/L (-2-2) Blood Gas Oxygen Saturation 95 % (90-100) Arterial Blood pH 7.20 (7.380-7.420) Arterial Blood Partial 58 mmHg (38-42) Pressure CO2 Arterial Blood Partial 235 mmHG Pressure O2 (61-120) Arterial Blood Oxygen Content 12.7 Vol % (12.0-20.0) Arterial Blood 2.8 % (0-4) Carboxyhemoglobin Arterial Blood Methemoglobin 1.6 % (0-2) Blood Gas Hemoglobin 9.1 G/DL (12.0-16.0) Oxygen Delivery Device VENTILATOR Blood Gas Ventilator Setting [id number] Blood Gas Inspired Oxygen 100 % Test 11/18/16 11/18/16 11/18/16 11/18/16 13:00 14:11 14:41 19:30 Nasal Screen MRSA (PCR) NEGATIVE (NEGATIVE) White Blood Count 7.0 TH/MM3 (4.0-11.0) Red Blood Count 3.16 MIL/MM3 (4.50-5.90) Hemoglobin 8.8 GM/DL (13.0-17.0) Hematocrit 27.3 % (39.0-51.0) Mean Corpuscular Volume 86.3 FL (80.0-100.0) Mean Corpuscular Hemoglobin 27.7 PG (27.0-34.0) Mean Corpuscular Hemoglobin 32.1 % Concent (32.0-36.0) Red Cell Distribution Width 17.9 % (11.6-17.2) Platelet Count 132 TH/MM3 (150-450) Mean Platelet Volume 9.1 FL (7.0-11.0) Neutrophils (%) (Auto) 90.0 % (16.0-70.0) Lymphocytes (%) (Auto) 3.5 % (9.0-44.0) Monocytes (%) (Auto) 4.6 % (0.0-8.0) Eosinophils (%) (Auto) 1.9 % (0.0-4.0) Basophils (%) (Auto) 0.0 % (0.0-2.0) Neutrophils # (Auto) 6.3 TH/MM3 (1.8-7.7) Lymphocytes # (Auto) 0.2 TH/MM3 (1.0-4.8) Monocytes # (Auto) 0.3 TH/MM3 (0-0.9) Eosinophils # (Auto) 0.1 TH/MM3 (0-0.4) Basophils # (Auto) 0.0 TH/MM3 (0-0.2) CBC Comment DIFF FINAL Differential Comment Sodium Level 137 MEQ/L (136-145) Potassium Level 5.4 MEQ/L 5.4 MEQ/L (3.5-5.1) (3.5-5.1) Chloride Level 102 MEQ/L (98-107) Carbon Dioxide Level 24.8 MEQ/L (21.0-32.0) Anion Gap 10 MEQ/L (5-15) Blood Urea Nitrogen 100 MG/DL (7-18) Creatinine 2.65 MG/DL (0.60-1.30) Estimat Glomerular Filtration 23 ML/MIN (>89) Rate Random Glucose 105 MG/DL (74-106) Calcium Level 8.0 MG/DL (8.5-10.1) Total Creatine Kinase 35 U/L (39-308) Troponin I 0.10 NG/ML (0.02-0.05) Thyroid Stimulating Hormone 0.021 uIU/ML 3rd Gen (0.358-3.740) Blood Gas Puncture Site LT RADIAL Blood Gas Patient Temperature 98.6 Blood Gas HCO3 22 mmol/L (22-26) Blood Gas Base Excess -2.6 mmol/L (-2-2) Blood Gas Oxygen Saturation 97 % (90-100) Arterial Blood pH 7.39 (7.380-7.420) Arterial Blood Partial 37 mmHg (38-42) Pressure CO2 Arterial Blood Partial 156 mmHg Pressure O2 (61-120) Arterial Blood Oxygen Content 12.5 Vol % (12.0-20.0) Arterial Blood 2.0 % (0-4) Carboxyhemoglobin Arterial Blood Methemoglobin 0.9 % (0-2) Blood Gas Hemoglobin 9.0 G/DL (12.0-16.0) Oxygen Delivery Device VENTILATOR Blood Gas Ventilator Setting Blood Gas Inspired Oxygen 50 % Free Thyroxine 1.41 NG/DL (0.76-1.46) Free Triiodothyronine (T3) 1.22 PG/ML pg/dL (2.18-3.98) Test 11/19/16 11/19/16 11/20/16 04:53 04:56 05:45 Sodium Level 137 MEQ/L 136 MEQ/L (136-145) (136-145) Potassium Level 4.4 MEQ/L 3.6 MEQ/L (3.5-5.1) (3.5-5.1) Chloride Level 100 MEQ/L 99 MEQ/L (98-107) (98-107) Carbon Dioxide Level 21.8 MEQ/L 21.2 MEQ/L (21.0-32.0) (21.0-32.0) Anion Gap 15 MEQ/L (5-15) 16 MEQ/L (5-15) Blood Urea Nitrogen 93 MG/DL (7-18) 104 MG/DL (7-18) Creatinine 2.54 MG/DL 2.54 MG/DL (0.60-1.30) (0.60-1.30) Estimat Glomerular Filtration 24 ML/MIN (>89) 24 ML/MIN (>89) Rate Random Glucose 149 MG/DL 306 MG/DL (74-106) (74-106) Calcium Level 7.9 MG/DL 7.8 MG/DL (8.5-10.1) (8.5-10.1) Total Bilirubin 0.6 MG/DL 0.8 MG/DL (0.2-1.0) (0.2-1.0) Aspartate Amino Transf 14 U/L (15-37) 7 U/L (15-37) (AST/SGOT) Alanine Aminotransferase 27 U/L (12-78) 20 U/L (12-78) (ALT/SGPT) Alkaline Phosphatase 153 U/L 124 U/L (45-117) (45-117) Total Protein 4.4 GM/DL 4.8 GM/DL (6.4-8.2) (6.4-8.2) Albumin 1.6 GM/DL 2.6 GM/DL (3.4-5.0) (3.4-5.0) White Blood Count 7.0 TH/MM3 8.1 TH/MM3 (4.0-11.0) (4.0-11.0) Red Blood Count 3.37 MIL/MM3 3.16 MIL/MM3 (4.50-5.90) (4.50-5.90) Hemoglobin 9.3 GM/DL 8.7 GM/DL (13.0-17.0) (13.0-17.0) Hematocrit 29.0 % 27.2 % (39.0-51.0) (39.0-51.0) Mean Corpuscular Volume 85.8 FL 86.1 FL (80.0-100.0) (80.0-100.0) Mean Corpuscular Hemoglobin 27.6 PG 27.6 PG (27.0-34.0) (27.0-34.0) Mean Corpuscular Hemoglobin 32.1 % 32.0 % Concent (32.0-36.0) (32.0-36.0) Red Cell Distribution Width 18.6 % 17.8 % (11.6-17.2) (11.6-17.2) Platelet Count 129 TH/MM3 126 TH/MM3 (150-450) (150-450) Mean Platelet Volume 9.3 FL 9.3 FL (7.0-11.0) (7.0-11.0) Neutrophils (%) (Auto) 90.3 % 93.4 % (16.0-70.0) (16.0-70.0) Lymphocytes (%) (Auto) 6.4 % 3.3 % (9.0-44.0) (9.0-44.0) Monocytes (%) (Auto) 2.7 % (0.0-8.0) 2.9 % (0.0-8.0) Eosinophils (%) (Auto) 0.5 % (0.0-4.0) 0.2 % (0.0-4.0) Basophils (%) (Auto) 0.1 % (0.0-2.0) 0.2 % (0.0-2.0) Neutrophils # (Auto) 6.3 TH/MM3 7.6 TH/MM3 (1.8-7.7) (1.8-7.7) Lymphocytes # (Auto) 0.4 TH/MM3 0.3 TH/MM3 (1.0-4.8) (1.0-4.8) Monocytes # (Auto) 0.2 TH/MM3 0.2 TH/MM3 (0-0.9) (0-0.9) Eosinophils # (Auto) 0.0 TH/MM3 0.0 TH/MM3 (0-0.4) (0-0.4) Basophils # (Auto) 0.0 TH/MM3 0.0 TH/MM3 (0-0.2) (0-0.2) CBC Comment AUTO DIFF AUTO DIFF Differential Total Cells 100 100 Counted Neutrophils % (Manual) 92 % (16-70) 87 % (16-70) Band Neutrophils % 2 % (0-6) 6 % (0-6) Lymphocytes % 4 % (9-44) 2 % (9-44) Monocytes % 2 % (0-8) 1 % (0-8) Neutrophils # (Manual) 6.6 TH/MM3 7.8 TH/MM3 (1.8-7.7) (1.8-7.7) Nucleated Red Blood Cells 1 /100 WBC (0-0) Differential Comment FINAL DIFF FINAL DIFF MANUAL MANUAL Platelet Estimate LOW (NORMAL) LOW (NORMAL) Platelet Morphology Comment NORMAL NORMAL (NORMAL) (NORMAL) Ovalocytes 1+ (NORMAL) 1+ (NORMAL) Eosinophils % 1 % (0-4) Myelocytes 3 % (0-0) Tear Drop Cells 1+ (NORMAL) Stomatocytes 1+ (NORMAL) Magnesium Level 1.8 MG/DL (1.5-2.5) Result Diagram: 11/20/1654411/20/16 0545 Microbiology Microbiology Date/Time Procedure Status Source Growth 11/18/16 04:40 Aerobic Blood Culture - Preliminary Resulted Blood Peripheral NO GROWTH IN 2 DAYS 11/18/16 04:40 Anaerobic Blood Culture - Preliminary Resulted Blood Peripheral NO GROWTH IN 2 DAYS 11/18/16 04:45 Urine Culture - Final Complete Urine Catheterized Urine NO GROWTH IN 48 HOURS. 11/18/16 04:45 Legionella Antigen - Final Complete Urine Catheterized Urine PRESUMPTIVE NEGATIVE FOR LEGIONELLA P... 11/18/16 04:45 Streptococcus pneumoniae Antigen (M - Final Complete Urine Catheterized Urine PRESUMPTIVE NEGATIVE FOR STREPTOCOCCU... 11/18/16 04:50 Aerobic Blood Culture - Preliminary Resulted Blood Peripheral NO GROWTH IN 2 DAYS 11/18/16 04:50 Anaerobic Blood Culture - Preliminary Resulted Blood Peripheral NO GROWTH IN 2 DAYS 11/18/16 05:45 Influenza Types A,B Antigen (ROLY) - Final Complete Nasal Aspirate NEGATIVE FOR FLU A AND B ANTIGEN.... . Imaging Last Impressions Chest X-Ray 11/20/16 0600 Signed Impressions: Service Date/Time: Sunday, November 20, 2016 04:32 - CONCLUSION: Increasing left basilar airspace disease. Paras Victor MD Upper Extremity Ultrasound 11/18/16 0000 Signed Impressions: Service Date/Time: Friday, November 18, 2016 15:25 - CONCLUSION: Normal examination. Abdon Londono MD Renal Ultrasound 11/18/16 0000 Signed Impressions: Service Date/Time: Friday, November 18, 2016 15:08 - CONCLUSION: Mild thinning of the cortex which may represent prior intimal disease. No evidence of hydronephrosis. 2.4 cm cyst upper pole of the right kidney. Urinary bladder decompressed with Jenkins catheter in place Rome Dwyer MD Lower Extremity Ultrasound 11/18/16 0000 Signed Impressions: Service Date/Time: Friday, November 18, 2016 14:32 - CONCLUSION: Normal examination. No evidence DVT Rome Dwyer MD Head CT 11/18/16 0000 Signed Impressions: Service Date/Time: Friday, November 18, 2016 11:11 - CONCLUSION: Negative for an acute process. Girish Cervantes MD FACR . Procedures * 11/19/16 right subclavian central line placed * 11/18/16 intubated . Patient/Family Conference Present at Family Conference: Met with Susan and her daughter Nga. . Family Conference Time (mins): 60 Family Conference Location: Bedside Issues Discussed: * Palliative care role, purpose, approach * Additional medical, psychosocial, and spiritual history * Patients general health, functional status, and cognitive changes in the months leading up to the current hospitalization * Patient/family understanding of the current medical problems * Patient/family understanding of prognosis * Patients goals of care as best understood from advance directives and/or conversations and/or values * Current medical treatment options and benefits/burdens of those options * Likely scenarios comparing ongoing aggressive care with a transition to comfort measures only * Questions answered to the best of my ability * Palliative care contact information provided Assessment and Plan Disease Oriented Problem List: (1) Atrial fibrillation with RVR (2) CKD (chronic kidney disease) stage 4, GFR 15-29 ml/min (3) Respiratory failure (4) Pneumonia (5) CHF (congestive heart failure) (6) Congestive heart failure (7) Stage II pressure ulcer of buttock (8) DM (diabetes mellitus) (9) Hypertension (10) A-fib (11) Anemia (12) Debility (13) Acute on chronic renal failure Symptom Scale: (1) Debility 0-10 Scale: Unable to quantify (2) Dyspnea 0-10 Scale: Unable to quantify (3) Pain 0-10 Scale: Unable to quantify Pertinent Non-Medical Issues Psychosocial: lives with his 17 years. Supported by their children. Spiritual: was born Anabaptism, well supported by their orthodoxy. Legal: Patient is incapacitated, will not likely regained capacity. According to [place] statutes, in the absence of written advance directives, health care proxy decision-making falls to the patient's spouse. Ethical issues impacting care: no known concerns at this time. . Important Contacts * Susan Monahan, /HCP: [phone] or [phone] Prognosis Overall prognosis appears poor for meaningful recovery given advanced age, multiple comorbidities, acute on chronic illness and trajectory of decline prior to hospitalization dating back to August 2016. . Code Status: No Code Plan * Decision Maker: Patient is incapacitated, will not likely regained capacity. According to [place] statutes, in the absence of written advance directives, health care proxy decision-making falls to the patient's spouse. In making will also be supported by the patient's 2 daughters Lolita and Liliya once they arrive from out of town. * NO CODE * 11/20/16 Palliative care met with patient/ family: I met with the patient's , Susan and her daughter Nga at bedside. indicates that the patient 's 2 daughters (Lolita and Liliya) will be arriving in the next 24 hours from out of town. She elects NO CODE. indicates the patient is declining, she feels that he is dying. She does not feel ready to consider withdrawal of life support at this point, she wants his children to be here and feels she will know when it's time. She does indicate that if the patient is not showing signs of clinical improvement on Wednesday11/23/16 that at that point she would request another palliative care family meeting for consideration of transition to comfort focused care and withdrawal of life support. * SYMPTOMS: Pain: on fentanyl drip. Unresponsive. Appears comfortable during my visit. Dyspnea: on mechanical ventilation, Versed drip. Patient appears comfortable. Will monitor PRN need and comfort. * Palliative care number provided. * Palliative care will continue to follow throughout hospital course to assist with symptom management and clarification of goals as needed. . Time Spent Total Floor Time (mins): 75 Face to Face Time (mins): 60 >50% Counseling/Coord of Care: Yes Thank you for the opportunity to participate in the care of Mr. Monahan. Attestation To help prompt me to consider important information that might be impacting today's encounter and assessment, information from prior notes written by myself or my colleagues may have been "brought forward" into today's note. My signature on this note, however, is an attestation that I personally performed the exam, history, and/or decision-making noted today, and, unless otherwise indicated, the interactions with patient, family, and staff as well as the review of records all occurred today. I also attest that the listed assessment and stated plan reflect my best clinical judgment today based on the combination of historical information, prior notes, and today's exam/ interactions. When time spent is documented, it refers only to time spent today by the signer, or if indicated, combined time spent today by collaborating physician/nurse practitioner. NISHANT STEVE Nov 20, 2016 14:21
[2016-11-20] MEDS ORDERED: DIGOXIN 0.5 MG/2 ML VIAL IV PUSH ONE (15:00)
--- NOTE | 2016-11-20 15:06 | HHI.CCPN ---
Subjective Remarks/Hospital Course The patient is a 81-year-old male with multiple medical comorbidities which include CHF, COPD, chronic kidney disease with history in the recent past of hemodialysis which was later discontinued, hypertension, hyperlipidemia, diabetes mellitus, BPH and peripheral neuropathy. He presented to [facility] ED from a local nursing facility for respiratory distress. Upon ambulance services arrival the patient had O2 saturation in the 70s and he was briefly placed on a non-rebreather mask where his O2 saturation improved to up in the 80s. However, the patient was tachycardic with heart rate in the 150s. He had a GCS score of 4 and was subsequently intubated by ambulance services prior to arrival after he was given etomidate and Ativan. His initial systolic blood pressure in the 80s and the patient responded to fluid resuscitation and his last blood pressure is 107/55 with a MAP of 72. The patient's blood sugar prior to arrival was 93. CT scan of the brain was obtained which was negative for acute process. Chest x-ray showed ET tube above the diana and pulmonary infiltrates, right greater than left. ABG post-intubation showed a pH of 7.20, CO2 58, pAO2 235, bicarb 22, saturation of 95% on assist control ventilation with a respiratory rate of 16, tidal volume 500, PEEP of 5 and FIO2 of 100%. His laboratory data is significant for acute on chronic kidney disease with BUN of 90, creatinine 2.65 and potassium of 5.3. His BNP was elevated at 395. EKG in the ER showed atrial fibrillation with RVR at a rate of 134 beats per minute. In the ED the patient was placed on fentanyl infusion for sedation which is currently at 80 mics. In addition he was given vancomycin and Zosyn. The patient also had nonocclusive thrombus of the right IJ vein in September and was placed on Eliquis 2.5 mg b.i.d., part of his home medications. The rest of the history is limited as the patient is intubated. 11/19: Patient remains intubated sedated with fentanyl. Tachycardic and heart rate 160s. Systolic blood pressure low at 70s. Levophed started. Urine output 1.8 L in 24 hours urine creatinine remains elevated 93/2.5. Chest x-ray shows pulmonary edema. EF 40-45% on 2-D echo. I will discontinue Bumex daily and started on Bumex infusion 11/20: Remains intubated sedated critically ill. Remains on vasopressin 0.04 international units. Currently on amiodarone infusion with heart rate varying from 110-130 Objective Vital Signs Date Time Temp Pulse Resp B/P Pulse Ox O2 Delivery O2 Flow Rate FiO2 11/20/16 12:00 40 11/20/16 12:00 96.4 108 14 140/65 100 11/18/16 13:13 Auto-Vent 11/18/16 04:30 15 Intake and Output 11/19/16 11/19/16 11/20/16 08:00 16:00 00:00 Intake Total 876 ml 913 ml 496 ml Output Total 550 ml 350 ml 400 ml Balance 326 ml 563 ml 96 ml Result Diagram: 11/20/16 0545 11/20/16 0545 Other Results Microbiology Date/Time Procedure Status Source Growth 11/18/16 04:45 Urine Culture - Final Complete Urine Catheterized Urine NO GROWTH IN 48 HOURS. 11/18/16 04:45 Legionella Antigen - Final Complete Urine Catheterized Urine PRESUMPTIVE NEGATIVE FOR LEGIONELLA P... 11/18/16 04:45 Streptococcus pneumoniae Antigen (M - Final Complete Urine Catheterized Urine PRESUMPTIVE NEGATIVE FOR STREPTOCOCCU... 11/18/16 05:45 Influenza Types A,B Antigen (ROLY) - Final Complete Nasal Aspirate NEGATIVE FOR FLU A AND B ANTIGEN.... Objective Remarks PHYSICAL EXAMINATION GENERAL: 81-year-old male intubated for respiratory failure. Tachycardic hypotensive HEENT: Atraumatic, normocephalic pupil equal, round, reactive to light. Orally intubated. NECK: Supple. No JVD, adenopathy or thyromegaly. Trachea midline. CARDIOVASCULAR: Tachycardic, irregularly, irregular. No murmurs, rubs or gallops noted. PULMONARY: Bilateral equal air entry with few coarse breath sounds. Abdomen entry is diminished predominantly at the bases ABDOMEN: Soft, obese, nontender, no distension. Positive bowel sounds. EXTREMITIES: No cyanosis, clubbing, 2+ edema of lower extremity and also edema of right upper extremity noted as well. NEURO: Patient is intubated sedated with Versed and fentanyl. Moves right upper extremity spontaneously A/P Assessment and Plan IMPRESSION Acute hypercapnic and hypoxemic respiratory failure. Atrial fibrillation with rapid ventricular response Hypotension Congestive heart failure Diffuse pulmonary infiltrates, differential diagnosis fluid overload vs infectious process. Possible aspiration pneumonia. Anemia of chronic disease. Acute on chronic kidney disease. Nonocclusive thrombus of the right IJ vein from September. History of CHF. COPD. Hypertension. Diabetes mellitus/dyslipidemia. BPH. Gout. Obstructive sleep apnea. Morbid obesity. RECOMMENDATIONS Neuro: -Continue with fentanyl and Versed infusion for sedation and ventilator synchrony. Monitor neuro status closely. -Daily sedation vacation -CT scan of the brain in the ED negative for acute process. Resp: -Continue with vent support and maintain sats above 92%. -Bronchodilators in the form of DuoNeb q. 6 and ICU vent bundle. -Holding p.o. prednisone and the patient was placed on hydrocortisone 100 mg IV q. 8. -Start spontaneous breathing trials in 24 hours criteria met CVS: -Continue Amiodarone infusion titrated to keep heart rate less than 110 -IV digoxin 0.25 mg 1 repeat dose today -Continue vasopressin to keep map above 65 -2D Echo -Ef 40-45% GI: -Tube feeds with Nepro. IV Protonix for GI prophylaxis : -Monitor renal function, I&O's and avoid nephrotoxins. -Nephrology service Dr. Delgadillo following-continue Bumex infusion 0.5 mg per hour ID: -Continue with broad-spectrum antibiotics in the form of Zosyn and Zyvox. -patient was given vancomycin and Zosyn in the ED. -Follow up on the blood and urine cultures. His nasal aspirate for influenza is negative. -F/U sputum culture with gram stain and will obtain a strep pneumonia and Legionella urinary antigen. Heme: -Monitor CBC and coags. Endo: -Sliding scale insulin with Accu-Chek for glycemic control. Proph: -Doppler US LE and RUE r/o DVT-negative -GI prophylaxis with Protonix 40 mg daily and DVT prophylaxis with SCDs and Eliquis 2.5 mg b.i.d. Critical care time 30 minutes excluding procedures. Critically ill currently DNR Tarun Coppola MD Nov 20, 2016 15:06
--- NOTE | 2016-11-20 16:32 | RADRPT ---
EXAM DATE/TIME: 11/20/2016 15:05 [facility] COMPARISON: CHEST SINGLE AP, November 20, 2016, 4:32. INDICATIONS : Evaluate for repiratory disease MEDICAL HISTORY : Cardiovascular disease. Chronic obstructive pulmonary disease SURGICAL HISTORY : None. ENCOUNTER: Subsequent ACUITY: 3 days PAIN SCORE: Non-responsive. LOCATION: Bilateral chest FINDINGS: The support devices remain in place. No pneumothorax. There continue to be infiltrates in both lung b ases. Infiltrates are about the same compared to the prior study. Heart size is stable. Bony structur es are stable. CONCLUSION: No significant interval change compared to the prior exam. Chava Nunez MD on November 20, 2016 at 16:30 Board Certified Radiologist. This report was verified electronically.
[2016-11-20] MEDS: MIDAZOLAM 100 MG/ML INJ 100 ML IV SCH (17:08)
[2016-11-20] MEDS: BUMETANIDE INJ 100 ML IV SCH (19:46)
[2016-11-21] VITALS (18 sets, daily range): BP systolic 122–149; BP diastolic 66–87; PULSE 98–135; RESP 14–20; TEMP 97.6–98.4; O2SAT 20–100
[2016-11-21] MEDS: HYDROCORTISONE SOD SUCCINATE 100 MG VIAL IV PUSH SCH ×3 (01:41→17:10)
[2016-11-21] MEDS: SODIUM CHLOR 0.9% 1000 ML INJ 1,000 ML IV SCH (01:41)
[2016-11-21] MEDS: CHLORHEXIDINE GLUCONATE 2 % 1 PACK (2 CLOTHS) TOP SCH (02:31)
[2016-11-21] MEDS: AMIODARONE INJ 450 MG in DEXTROSE 5% IN WATE(EXCEL) INJ 241 ML IV SCH ×4 (02:43→22:32)
[2016-11-21] MEDS: RESP: ALBUTEROL 2.5 MG/IPRATROPIUM 0.5 MG NEB (SCH) NEB ×4 (03:05→20:40)
[2016-11-21 04:35] LABS: AUTOMATED NEUTROPHIL # 8.6 TH/MM3 (1.8-7.7); BASOPHIL % 0.1 % (0.0-2.0); EOSINOPHIL % 0.2 % (0.0-4.0); HEMO FLAGS AUTO DIFF; LYMPH % 2.8 % (9.0-44.0); LYMPHOCYTE # 0.3 TH/MM3 (1.0-4.8); MEAN CELL VOLUME 84.5 FL (80.0-100.0); MEAN CORPUSCULAR HEMOGLOBIN 27.7 PG (27.0-34.0); MEAN CORPUSCULAR HGB CONC 32.8 % (32.0-36.0); MONO % 3.3 % (0.0-8.0); NEUT % 93.6 % (16.0-70.0); PLATELET COUNT 118 TH/MM3 (150-450); RED BLOOD COUNT 3.19 MIL/MM3 (4.50-5.90); WHITE BLOOD COUNT 9.1 TH/MM3 (4.0-11.0)
[2016-11-21 04:55] LABS: ALKALINE PHOSPHATASE 103 U/L (45-117); ALT (GPT) 16 U/L (12-78); ANION GAP 17 MEQ/L (5-15); AST (GOT) LESS THAN 3 U/L (15-37); BLOOD UREA NITROGEN 98 MG/DL (7-18); CALCIUM-PROTEIN CORRECTED 8.4 MG/DL (8.5-10.1); CHLORIDE 96 MEQ/L (98-107); GLOMERULAR FILTRATION RATE 25 ML/MIN (>89); MAGNESIUM 1.7 MG/DL (1.5-2.5); POTASSIUM 3.1 MEQ/L (3.5-5.1); SODIUM (NA) 136 MEQ/L (136-145); TOTAL BILIRUBIN ADULT 0.7 MG/DL (0.2-1.0)
[2016-11-21] MEDS: PIPERACIL-TAZO 2.25 GM PREMIX 50 ML IV SCH ×4 (05:11→22:58)
[2016-11-21] MEDS: INSULIN ASPART SUPPLEMENTAL SCALE SQ SCH ×4 (05:32→23:37)
[2016-11-21 05:33] LABS: BANDS 2 % (0-6); NEUTROPHIL # MANUAL DIFF 9.1 TH/MM3 (1.8-7.7); POLYS (SEG NEUTROPHILS) 98 % (16-70); TEARDROP RBCS 1+ (NORMAL); WBC DIFF SAMPLE 100
[2016-11-21 05:34] LABS: OVALOCYTES 1+ (NORMAL); PLATELET ESTIMATE SMEAR LOW (NORMAL); PLATELET MORPHOLOGY NORMAL (NORMAL); SCAN/DIFF FINAL DIFF MANUAL
[2016-11-21] MEDS ORDERED: POTASSIUM CL 40 MEQ/30 ML LIQ UDC PO ONE (06:30)
[2016-11-21] MEDS: PANTOPRAZOLE SODIUM 40 MG VIAL IV SCH (08:27)
[2016-11-21] MEDS: ALBUMIN HUMAN 25% 25 GM/100 ML BAGP IV SCH (08:27)
[2016-11-21] MEDS: APIXABAN 2.5 MG TABLET PO SCH ×2 (08:27→19:49)
[2016-11-21] MEDS: SODIUM CHLORIDE 0.9% FLUSH 5 ML FLUSH IVF SCH ×2 (08:27→19:49)
[2016-11-21] MEDS: CHLORHEXIDINE 0.12% (ORAL KIT) 15 ML CUP MT SCH ×2 (08:28→19:50)
[2016-11-21] MEDS: LINEZOLID 600 MG PREMIX 300 ML IV SCH ×2 (10:38→23:38)
--- NOTE | 2016-11-21 11:03 | HHI.NPPN ---
Subjective History of Present Illness 81 year old with CKD/CHF/COPD Additional Remarks Patient is intubated and sedated. Objective Data Data 11/20/16 11/21/16 19:00 07:00 Intake Total 497 ml 1574 ml Output Total 1200 ml 1975 ml Balance -703 ml -401 ml IV Total 497 ml 1374 ml Other 200 ml Output Urine Total 1200 ml 1075 ml Gastric Drainage Total 900 ml Vital Signs Date Time Temp Pulse Resp B/P Pulse Ox O2 Delivery O2 Flow Rate FiO2 11/21/16 10:00 122 11/21/16 08:17 99 35 11/21/16 08:00 35 11/21/16 08:00 98.0 98 14 140/87 99 11/21/16 08:00 98 11/21/16 06:00 116 11/21/16 04:02 99 35 11/21/16 04:00 97.7 135 20 122/70 20 11/21/16 04:00 35 11/21/16 04:00 135 11/21/16 02:00 118 11/21/16 01:03 100 40 11/21/16 00:00 123 11/21/16 00:00 40 11/21/16 00:00 97.6 123 18 144/68 100 11/20/16 22:02 100 40 11/20/16 22:00 113 11/20/16 20:00 97.0 114 18 108/59 100 11/20/16 20:00 40 11/20/16 20:00 114 11/20/16 19:15 99 40 11/20/16 19:00 97.0 114 18 108/59 100 11/20/16 18:00 110 11/20/16 17:09 100 40 11/20/16 16:00 96.4 96 14 118/65 98 11/20/16 16:00 96 11/20/16 16:00 40 11/20/16 14:00 107 11/20/16 12:00 40 11/20/16 12:00 96.4 108 14 140/65 100 11/20/16 12:00 108 11/20/16 11:48 100 40 -: 11/21/16 0400 11/21/16 0400 Physical Exam General Appearance Remarks Intubated and sedated. Neck Neck Exam: Neck Supple Pulmonary Resp Exam: Crackles, Rhonchi, Decreased Bases, Diminished Breath Sounds Cardiology CV Exam: Regular, Normal Sinus Rhythm Gastrointestinal/Abdomen GI Exam: Soft, Bowel Sounds Present, Distended Extremeties Extremities Exam: Moderate Edema, Pitting Edema Neurologic Neuro Exam: Sedated Assessment/Plan Problem List: (1) Acute renal failure Plan: Patient has nonoliguric.on Bumex gtt 0.5 MG/HR good UOP creatinine stable has stage 4 CKD BUN and Creatinine almost same. K is low and replaced. Continue Bumex gtt. D/W patient's at bed side. (2) CKD (chronic kidney disease) stage 4, GFR 15-29 ml/min Plan: Known history of kidney disease as above due to diabetes (3) CHF (congestive heart failure) Plan: On the ventilator (4) Atrial fibrillation with RVR Plan: Continue to monitor (5) Respiratory failure Plan: On ventilator (6) Pneumonia (7) Hyperkalemia Plan: resolved Problem Qualifiers (1) Acute renal failure: Qualified Code: N17.0 - Acute renal failure with tubular necrosis (2) Respiratory failure: Qualified Code: J96.01 - Acute respiratory failure with hypoxia Mackenzie Haile MD Nov 21, 2016 11:03
[2016-11-21] MEDS: VASOPRESSIN INJ 40 UNITS in DEXTROSE 5% IN WATER 100ML INJ 98 ML IV SCH ×2 (13:22)
--- NOTE | 2016-11-21 16:00 | HHI.CCPN ---
Subjective Remarks/Hospital Course The patient is a 81-year-old male with multiple medical comorbidities which include CHF, COPD, chronic kidney disease with history in the recent past of hemodialysis which was later discontinued, hypertension, hyperlipidemia, diabetes mellitus, BPH and peripheral neuropathy. He presented to [facility] ED from a local nursing facility for respiratory distress. Upon ambulance services arrival the patient had O2 saturation in the 70s and he was briefly placed on a non-rebreather mask where his O2 saturation improved to up in the 80s. However, the patient was tachycardic with heart rate in the 150s. He had a GCS score of 4 and was subsequently intubated by ambulance services prior to arrival after he was given etomidate and Ativan. His initial systolic blood pressure in the 80s and the patient responded to fluid resuscitation and his last blood pressure is 107/55 with a MAP of 72. The patient's blood sugar prior to arrival was 93. CT scan of the brain was obtained which was negative for acute process. Chest x-ray showed ET tube above the diana and pulmonary infiltrates, right greater than left. ABG post-intubation showed a pH of 7.20, CO2 58, pAO2 235, bicarb 22, saturation of 95% on assist control ventilation with a respiratory rate of 16, tidal volume 500, PEEP of 5 and FIO2 of 100%. His laboratory data is significant for acute on chronic kidney disease with BUN of 90, creatinine 2.65 and potassium of 5.3. His BNP was elevated at 395. EKG in the ER showed atrial fibrillation with RVR at a rate of 134 beats per minute. In the ED the patient was placed on fentanyl infusion for sedation which is currently at 80 mics. In addition he was given vancomycin and Zosyn. The patient also had nonocclusive thrombus of the right IJ vein in September and was placed on Eliquis 2.5 mg b.i.d., part of his home medications. The rest of the history is limited as the patient is intubated. 11/19: Patient remains intubated sedated with fentanyl. Tachycardic and heart rate 160s. Systolic blood pressure low at 70s. Levophed started. Urine output 1.8 L in 24 hours urine creatinine remains elevated 93/2.5. Chest x-ray shows pulmonary edema. EF 40-45% on 2-D echo. I will discontinue Bumex daily and started on Bumex infusion 11/20: Remains intubated sedated critically ill. Remains on vasopressin 0.04 international units. Currently on amiodarone infusion with heart rate varying from 110-130 11/21: Remains on vasopressin and amiodarone. No acute events overnight. Will start CPAP trails if criteria met. UO adequate Objective Vital Signs Date Time Temp Pulse Resp B/P Pulse Ox O2 Delivery O2 Flow Rate FiO2 11/21/16 14:00 121 11/21/16 12:30 99 35 11/21/16 12:00 98.0 14 144/82 11/18/16 13:13 Auto-Vent 11/18/16 04:30 15 Intake and Output 11/20/16 11/20/16 11/21/16 08:00 16:00 00:00 Intake Total 715 ml 497 ml 675 ml Output Total 650 ml 1200 ml 1075 ml Balance 65 ml -703 ml -400 ml Result Diagram: 11/21/160 11/21/16399 Objective Remarks PHYSICAL EXAMINATION GENERAL: 81-year-old male intubated for respiratory failure. HEENT: Atraumatic, normocephalic pupil equal, round, reactive to light. Orally intubated. NECK: Supple. No JVD, adenopathy or thyromegaly. Trachea midline. CARDIOVASCULAR: Tachycardic, irregularly, irregular. No murmurs, rubs or gallops noted. PULMONARY: Bilateral equal air entry with few coarse breath sounds. Air entry is diminished predominantly at the bases ABDOMEN: Soft, obese, nontender, no distension. Positive bowel sounds. EXTREMITIES: No cyanosis, clubbing, 2+ edema of lower extremity and also edema of right upper extremity noted as well. NEURO: Patient is intubated sedated with Versed and fentanyl. Moves right upper extremity spontaneously A/P Assessment and Plan IMPRESSION Acute hypercapnic and hypoxemic respiratory failure. Atrial fibrillation with rapid ventricular response Hypotension Congestive heart failure Diffuse pulmonary infiltrates, differential diagnosis fluid overload vs infectious process. Possible aspiration pneumonia. Anemia of chronic disease. Acute on chronic kidney disease. Nonocclusive thrombus of the right IJ vein from September. History of CHF. COPD. Hypertension. Diabetes mellitus/dyslipidemia. BPH. Gout. Obstructive sleep apnea. Morbid obesity. RECOMMENDATIONS Neuro: -Continue with fentanyl and Versed infusion for sedation and ventilator synchrony. Monitor neuro status closely. -Daily sedation vacation -CT scan of the brain in the ED negative for acute process. Resp: -Continue with vent support and maintain Sats above 90%. -Bronchodilators in the form of DuoNeb q. 6 and ICU vent bundle. -Holding p.o. prednisone and the patient was placed on hydrocortisone 100 mg IV q. 8. -Start spontaneous breathing trials today CVS: -Continue Amiodarone infusion titrated to keep heart rate less than 110 -IV digoxin 0.25 mg 1 repeat dose 11/20/16 -Continue vasopressin to keep map above 65 -2D Echo -EF 40-45% GI: -Tube feeds with Nepro. IV Protonix for GI prophylaxis : -Monitor renal function, I&O's and avoid nephrotoxins. -Nephrology service Dr. Delgadillo following-continue Bumex infusion 0.5 mg per hour ID: -Continue with broad-spectrum antibiotics in the form of Zosyn and Zyvox. -Patient was given vancomycin and Zosyn in the ED. -Follow up on the blood and urine cultures. His nasal aspirate for influenza is negative. -F/U sputum culture with gram stain and will obtain a strep pneumonia and Legionella urinary antigen. Heme: -Monitor CBC and coags. Endo: -Sliding scale insulin with Accu-Chek for glycemic control. Proph: -Doppler US LE and RUE r/o DVT-negative -GI prophylaxis with Protonix 40 mg daily and DVT prophylaxis with SCDs and Eliquis 2.5 mg b.i.d. Critical care time 30 minutes excluding procedures. Critically ill currently DNR. Remains on pressors. Predicted mortality remains high Tarun Coppola MD Nov 21, 2016 16:00
[2016-11-21] MEDS ORDERED: DIGOXIN 0.5 MG/2 ML VIAL IV ONE (17:00)
[2016-11-21] MEDS: MIDAZOLAM 100 MG/ML INJ 100 ML IV SCH (17:10)
[2016-11-22] VITALS (21 sets, daily range): BP systolic 80–150; BP diastolic 53–71; PULSE 99–138; RESP 8–20; TEMP 98–98.9; O2SAT 91–98
[2016-11-22] MEDS: VASOPRESSIN INJ 40 UNITS in DEXTROSE 5% IN WATER 100ML INJ 98 ML IV SCH ×2 (00:29)
[2016-11-22] MEDS: HYDROCORTISONE SOD SUCCINATE 100 MG VIAL IV PUSH SCH ×3 (01:50→17:36)
[2016-11-22] MEDS: SODIUM CHLOR 0.9% 1000 ML INJ 1,000 ML IV SCH ×2 (01:52→22:28)
[2016-11-22] MEDS: CHLORHEXIDINE GLUCONATE 2 % 1 PACK (2 CLOTHS) TOP SCH (02:58)
[2016-11-22] MEDS: RESP: ALBUTEROL 2.5 MG/IPRATROPIUM 0.5 MG NEB (SCH) NEB (03:04)
[2016-11-22] MEDS: fentaNYL DRIP 250 ML IV SCH (03:08)
[2016-11-22 03:59] LABS: AUTOMATED NEUTROPHIL # 7.9 TH/MM3 (1.8-7.7); BASOPHIL % 0.1 % (0.0-2.0); EOSINOPHIL % 0.1 % (0.0-4.0); HEMATOCRIT 27.4 % (39.0-51.0); LYMPH % 2.6 % (9.0-44.0); LYMPHOCYTE # 0.2 TH/MM3 (1.0-4.8); MEAN CELL VOLUME 83.5 FL (80.0-100.0); MEAN CORPUSCULAR HEMOGLOBIN 27.5 PG (27.0-34.0); MEAN CORPUSCULAR HGB CONC 32.9 % (32.0-36.0); MONO % 3.3 % (0.0-8.0); NEUT % 93.9 % (16.0-70.0); PLATELET COUNT 115 TH/MM3 (150-450); RED BLOOD COUNT 3.29 MIL/MM3 (4.50-5.90); RED CELL DISTRIBUTION WIDTH 17.8 % (11.6-17.2); WHITE BLOOD COUNT 8.4 TH/MM3 (4.0-11.0)
[2016-11-22 04:04] LABS: HEMO FLAGS AUTO DIFF
[2016-11-22 04:22] LABS: ANION GAP 17 MEQ/L (5-15)
[2016-11-22 04:25] LABS: ALKALINE PHOSPHATASE 85 U/L (45-117); ALT (GPT) 13 U/L (12-78); AST (GOT) LESS THAN 3 U/L (15-37); BICARBONATE 23.3 MEQ/L (21.0-32.0); BLOOD UREA NITROGEN 99 MG/DL (7-18); CHLORIDE 98 MEQ/L (98-107); GLOMERULAR FILTRATION RATE 23 ML/MIN (>89); MAGNESIUM 1.7 MG/DL (1.5-2.5); SODIUM (NA) 138 MEQ/L (136-145); TOTAL BILIRUBIN ADULT 0.8 MG/DL (0.2-1.0)
[2016-11-22 04:30] LABS: POTASSIUM 2.7 MEQ/L (3.5-5.1)
--- NOTE | 2016-11-22 05:03 | RADRPT ---
EXAM DATE/TIME: 11/22/2016 03:08 [facility] COMPARISON: CHEST SINGLE AP, November 20, 2016, 15:05. INDICATIONS : Shortness of breath, possible pulmonary disease. MEDICAL HISTORY : Cardiovascular disease. Chronic obstructive pulmonary disease. SURGICAL HISTORY : None. ENCOUNTER: Subsequent ACUITY: 4 - 6 days PAIN SCORE: Non-responsive. LOCATION: Bilateral chest FINDINGS: Bilateral moderate effusions and consolidation left greater than right. Right subclavian line, endotr acheal tube and NG tube are noted. Aortic calcification and cardiomegaly. CONCLUSION: No significant change has occurred. Paras Victor MD on November 22, 2016 at 5:01 Board Certified Radiologist. This report was verified electronically.
[2016-11-22 05:24] LABS: METAMYELOCYTES 2 % (0-1); MYELOCYTES 1 % (0-0); NEUTROPHIL # MANUAL DIFF 8.3 TH/MM3 (1.8-7.7); POLYS (SEG NEUTROPHILS) 96 % (16-70); WBC DIFF SAMPLE 100
[2016-11-22 05:25] LABS: OVALOCYTES 1+ (NORMAL); PLATELET ESTIMATE SMEAR LOW (NORMAL); PLATELET MORPHOLOGY NORMAL (NORMAL); SCAN/DIFF FINAL DIFF MANUAL
[2016-11-22] MEDS ORDERED: POTASSIUM CL 40 MEQ/30 ML LIQ UDC PO ONE (05:45)
[2016-11-22] MEDS ORDERED: POTASSIUM CHLORIDE INJ 40 MEQ in SODIUM CHLORID 0.9% 500 ML INJ 500 ML IV-CENTRAL ONE (05:45)
[2016-11-22] MEDS: INSULIN ASPART SUPPLEMENTAL SCALE SQ SCH ×4 (06:10→23:19)
[2016-11-22] MEDS: PIPERACIL-TAZO 2.25 GM PREMIX 50 ML IV SCH ×4 (06:11→22:28)
[2016-11-22] MEDS: CHLORHEXIDINE 0.12% (ORAL KIT) 15 ML CUP MT SCH ×2 (08:11→20:19)
[2016-11-22] MEDS: SODIUM CHLORIDE 0.9% FLUSH 5 ML FLUSH IVF SCH ×2 (08:12→20:22)
[2016-11-22] MEDS: APIXABAN 2.5 MG TABLET PO SCH ×2 (08:12→20:19)
[2016-11-22] MEDS: PANTOPRAZOLE SODIUM 40 MG VIAL IV SCH (08:12)
[2016-11-22] MEDS: LINEZOLID 600 MG PREMIX 300 ML IV SCH ×2 (12:00→22:28)
[2016-11-22] MEDS: RESP: ALBUTEROL 2.5 MG/IPRATROPIUM 0.5 MG NEB (PRN) INH ×3 (12:30→19:35)
--- NOTE | 2016-11-22 13:29 | HHI.NPPN ---
Subjective History of Present Illness 81 year old with CKD/CHF/COPD Additional Remarks Patient is intubated and sedated, clinically same. Objective Data Data 11/21/16 11/22/16 19:00 07:00 Intake Total 792 ml 1496 ml Output Total 1275 ml 1525 ml Balance -483 ml -29 ml IV Total 792 ml 1096 ml Other 400 ml Output Urine Total 950 ml 1275 ml Gastric Drainage Total 325 ml 250 ml Vital Signs Date Time Temp Pulse Resp B/P Pulse Ox O2 Delivery O2 Flow Rate FiO2 11/22/16 13:01 95 40 11/22/16 10:15 91 35 11/22/16 10:00 119 11/22/16 09:00 94 35 11/22/16 08:00 98.9 134 18 127/55 95 11/22/16 08:00 35 11/22/16 08:00 119 11/22/16 07:30 94 35 11/22/16 06:00 122 11/22/16 04:03 96 35 11/22/16 04:00 138 11/22/16 04:00 35 11/22/16 04:00 98.3 138 18 150/71 94 11/22/16 02:00 131 11/22/16 01:08 96 35 11/22/16 00:00 123 11/22/16 00:00 35 11/22/16 00:00 98.5 123 20 141/65 95 11/21/16 22:05 96 35 11/21/16 20:00 121 11/21/16 20:00 35 11/21/16 20:00 98.4 121 20 149/66 95 11/21/16 19:05 96 35 11/21/16 18:00 116 11/21/16 17:42 95 35 11/21/16 16:00 111 11/21/16 16:00 98.2 111 14 124/68 97 11/21/16 16:00 35 11/21/16 14:00 121 -: 11/22/16 0336 11/22/16 0336 Physical Exam General Appearance Remarks Intubated and sedated. Neck Neck Exam: Neck Supple Pulmonary Resp Exam: Crackles, Rhonchi, Decreased Bases, Diminished Breath Sounds Cardiology CV Exam: Regular, Normal Sinus Rhythm Gastrointestinal/Abdomen GI Exam: Soft, Bowel Sounds Present, Distended Extremeties Extremities Exam: Moderate Edema, Pitting Edema Neurologic Neuro Exam: Sedated Assessment/Plan Problem List: (1) Acute renal failure Plan: Patient has nonoliguric.on Bumex gtt 0.5 MG/HR good UOP creatinine stable has stage 4 CKD BUN and Creatinine almost same. Continue Bumex gtt. Follow urine out put and BMP. Avoid Nephrotoxins. (2) CKD (chronic kidney disease) stage 4, GFR 15-29 ml/min Plan: Known history of kidney disease as above due to diabetes (3) CHF (congestive heart failure) Plan: On the ventilator (4) Atrial fibrillation with RVR Plan: Continue to monitor (5) Respiratory failure Plan: On ventilator (6) Pneumonia (7) Hyperkalemia Plan: resolved Problem Qualifiers (1) Acute renal failure: Qualified Code: N17.0 - Acute renal failure with tubular necrosis (2) Respiratory failure: Qualified Code: J96.01 - Acute respiratory failure with hypoxia Mackenzie Haile MD Nov 22, 2016 13:29
--- NOTE | 2016-11-22 13:35 | HHI.CCPN ---
Subjective Remarks/Hospital Course The patient is a 81-year-old male with multiple medical comorbidities which include CHF, COPD, chronic kidney disease with history in the recent past of hemodialysis which was later discontinued, hypertension, hyperlipidemia, diabetes mellitus, BPH and peripheral neuropathy. He presented to [facility] ED from a local nursing facility for respiratory distress. Upon ambulance services arrival the patient had O2 saturation in the 70s and he was briefly placed on a non-rebreather mask where his O2 saturation improved to up in the 80s. However, the patient was tachycardic with heart rate in the 150s. He had a GCS score of 4 and was subsequently intubated by ambulance services prior to arrival after he was given etomidate and Ativan. His initial systolic blood pressure in the 80s and the patient responded to fluid resuscitation and his last blood pressure is 107/55 with a MAP of 72. The patient's blood sugar prior to arrival was 93. CT scan of the brain was obtained which was negative for acute process. Chest x-ray showed ET tube above the diana and pulmonary infiltrates, right greater than left. ABG post-intubation showed a pH of 7.20, CO2 58, pAO2 235, bicarb 22, saturation of 95% on assist control ventilation with a respiratory rate of 16, tidal volume 500, PEEP of 5 and FIO2 of 100%. His laboratory data is significant for acute on chronic kidney disease with BUN of 90, creatinine 2.65 and potassium of 5.3. His BNP was elevated at 395. EKG in the ER showed atrial fibrillation with RVR at a rate of 134 beats per minute. In the ED the patient was placed on fentanyl infusion for sedation which is currently at 80 mics. In addition he was given vancomycin and Zosyn. The patient also had nonocclusive thrombus of the right IJ vein in September and was placed on Eliquis 2.5 mg b.i.d., part of his home medications. The rest of the history is limited as the patient is intubated. 11/19: Patient remains intubated sedated with fentanyl. Tachycardic and heart rate 160s. Systolic blood pressure low at 70s. Levophed started. Urine output 1.8 L in 24 hours urine creatinine remains elevated 93/2.5. Chest x-ray shows pulmonary edema. EF 40-45% on 2-D echo. I will discontinue Bumex daily and started on Bumex infusion 11/20: Remains intubated sedated critically ill. Remains on vasopressin 0.04 international units. Currently on amiodarone infusion with heart rate varying from 110-130 11/21: Remains on vasopressin and amiodarone. No acute events overnight. Will start CPAP trails if criteria met. UO adequate 11/22: Patient tolerating C Pap trials today, still under residual sedation. Vasopressin had been turned off. Urine output more than 2 L. Remains on amiodarone infusion Objective Vital Signs Date Time Temp Pulse Resp B/P Pulse Ox O2 Delivery O2 Flow Rate FiO2 11/22/16 13:01 95 40 11/22/16 10:00 119 11/22/16 08:00 98.9 18 127/55 11/18/16 13:13 Auto-Vent Intake and Output 11/21/16 11/21/16 11/22/16 08:00 16:00 00:00 Intake Total 899 ml 792 ml 664 ml Output Total 900 ml 1275 ml 725 ml Balance -1 ml -483 ml -61 ml Result Diagram: 11/22/16 0336 11/22/16 0336 Objective Remarks PHYSICAL EXAMINATION GENERAL: 81-year-old male intubated for respiratory failure. HEENT: Atraumatic, normocephalic pupil equal, round, reactive to light. Orally intubated. NECK: Supple. No JVD, adenopathy or thyromegaly. Trachea midline. CARDIOVASCULAR: Tachycardic, irregularly, irregular. No murmurs, rubs or gallops noted. PULMONARY: Bilateral equal air entry with few coarse breath sounds. Air entry is diminished predominantly at the bases ABDOMEN: Soft, obese, nontender, no distension. Positive bowel sounds. EXTREMITIES: No cyanosis, clubbing, 2+ edema of lower extremity and also edema of right upper extremity noted as well. NEURO: Patient is intubated sedated off sedation. Did not open eyes or follow commands yet Urinary Catheter: Yes Assessment to: Continue Vascular Central Line Catheter: Yes Assessment to: Continue Side: Right Location: Subclavian A/P Assessment and Plan IMPRESSION Acute hypercapnic and hypoxemic respiratory failure. Atrial fibrillation with rapid ventricular response Hypotension Congestive heart failure Diffuse pulmonary infiltrates, differential diagnosis fluid overload vs infectious process. Possible aspiration pneumonia. Anemia of chronic disease. Acute on chronic kidney disease. Nonocclusive thrombus of the right IJ vein from September. History of CHF. COPD. Hypertension. Diabetes mellitus/dyslipidemia. BPH. Gout. Obstructive sleep apnea. Morbid obesity. RECOMMENDATIONS Neuro: -Continue with fentanyl and Versed infusion for sedation and ventilator synchrony. Monitor neuro status closely. -Hold all sedation for possible extubation -CT scan of the brain in the ED negative for acute process. Resp: -Continue with vent support and maintain Sats above 90%. -Bronchodilators in the form of DuoNeb q. 6 and ICU vent bundle. -Holding p.o. prednisone and the patient was placed on hydrocortisone 100 mg IV q. 8.-reduce to 50 q8 -Spontaneous breathing trials with possible extubation CVS: -Continue Amiodarone infusion titrated to keep heart rate less than 110 -IV digoxin 0.25 mg 1 repeat dose 11/20/16, 11/22/16 -Continue vasopressin to keep map above 65-currenlty weaned off -2D Echo -EF 40-45% GI: -Tube feeds with Nepro. IV Protonix for GI prophylaxis : -Monitor renal function, I&O's and avoid nephrotoxins. -Nephrology service Dr. Delgadillo following-continue Bumex infusion 0.5 mg per hour ID: -Continue with broad-spectrum antibiotics in the form of Zosyn and Zyvox. -Patient was given vancomycin and Zosyn in the ED. -Follow up on the blood and urine cultures. His nasal aspirate for influenza is negative. -Negative strep pneumonia and Legionella urinary antigen. Heme: -Monitor CBC and coags. Endo: -Sliding scale insulin with Accu-Chek for glycemic control. Proph: -Doppler US LE and RUE r/o DVT-negative -GI prophylaxis with Protonix 40 mg daily and DVT prophylaxis with SCDs and Eliquis 2.5 mg b.i.d. Level 3. Critically ill currently DNR. Remains on pressors. Family requests weaning to extubation. if he does not do well transition to comfort measures Tarun Coppola MD Nov 22, 2016 13:35
[2016-11-22] MEDS: AMIODARONE INJ 450 MG in DEXTROSE 5% IN WATE(EXCEL) INJ 241 ML IV SCH ×2 (13:54)
[2016-11-23] VITALS (18 sets, daily range): BP systolic 101–137; BP diastolic 58–84; PULSE 102–136; RESP 10–26; TEMP 98–99.4; O2SAT 91–98
[2016-11-23] MEDS: HYDROCORTISONE SOD SUCCINATE 100 MG VIAL IV PUSH SCH ×3 (01:25→17:04)
[2016-11-23] MEDS: CHLORHEXIDINE GLUCONATE 2 % 1 PACK (2 CLOTHS) TOP SCH (03:44)
[2016-11-23] MEDS: PIPERACIL-TAZO 2.25 GM PREMIX 50 ML IV SCH ×3 (03:45→17:04)
[2016-11-23] MEDS: BUMETANIDE INJ 100 ML IV SCH (03:46)
[2016-11-23] MEDS: AMIODARONE INJ 450 MG in DEXTROSE 5% IN WATE(EXCEL) INJ 241 ML IV SCH ×4 (03:46→19:54)
[2016-11-23 04:32] LABS: BICARBONATE 23.3 MEQ/L (21.0-32.0); POTASSIUM 3.3 MEQ/L (3.5-5.1)
[2016-11-23] MEDS: INSULIN ASPART SUPPLEMENTAL SCALE SQ SCH ×3 (05:21→17:13)
[2016-11-23] MEDS: SODIUM CHLORIDE 0.9% FLUSH 5 ML FLUSH IVF SCH ×2 (08:05→19:53)
[2016-11-23] MEDS: PANTOPRAZOLE SODIUM 40 MG VIAL IV SCH (08:05)
[2016-11-23] MEDS: APIXABAN 2.5 MG TABLET PO SCH ×2 (08:05→19:53)
[2016-11-23] MEDS: CHLORHEXIDINE 0.12% (ORAL KIT) 15 ML CUP MT SCH ×2 (08:05→19:53)
--- NOTE | 2016-11-23 10:22 | HHI.NPPN ---
Subjective History of Present Illness 81 year old with CKD/CHF/COPD Additional Remarks Patient is intubated and sedated. Objective Data Data 11/22/16 11/23/16 19:00 07:00 Intake Total 1125 ml 727 ml Output Total 550 ml 925 ml Balance 575 ml -198 ml Intake Oral 0 ml IV Total 1125 ml 727 ml Output Urine Total 450 ml 725 ml Gastric Drainage Total 100 ml 200 ml # Bowel Movements 0 Vital Signs Date Time Temp Pulse Resp B/P Pulse Ox O2 Delivery O2 Flow Rate FiO2 11/23/16 08:00 99.4 112 13 117/59 94 11/23/16 08:00 125 11/23/16 08:00 35 11/23/16 07:42 96 35 11/23/16 06:00 136 11/23/16 04:04 98 35 11/23/16 04:00 135 11/23/16 04:00 35 11/23/16 04:00 98.0 135 16 101/58 95 11/23/16 02:00 127 11/23/16 01:02 97 35 11/23/16 00:00 119 11/23/16 00:00 35 11/23/16 00:00 98.3 119 10 114/58 96 11/22/16 22:00 131 11/22/16 21:00 93/57 11/22/16 20:00 117 11/22/16 20:00 35 11/22/16 20:00 98.5 117 10 80/53 95 11/22/16 19:35 96 35 11/22/16 18:01 97 35 11/22/16 18:00 104 11/22/16 16:15 35 11/22/16 16:00 98.0 113 8 134/66 98 11/22/16 16:00 40 11/22/16 16:00 104 11/22/16 14:00 104 11/22/16 13:01 95 40 11/22/16 12:00 40 11/22/16 12:00 98.3 108 11 101/53 94 11/22/16 12:00 99 -: 11/22/16 0336 11/23/16 0400 Physical Exam Neck Neck Exam: Neck Supple Pulmonary Resp Exam: Crackles, Rhonchi, Decreased Bases, Diminished Breath Sounds Cardiology CV Exam: Arrhythmia Gastrointestinal/Abdomen GI Exam: Soft, Bowel Sounds Present, Distended Extremeties Extremities Exam: Moderate Edema, Pitting Edema Neurologic Neuro Exam: Sedated Assessment/Plan Problem List: (1) Acute renal failure Plan: Patient has nonoliguric.on Bumex gtt 0.5 MG/HR good UOP creatinine higher has stage 4 CKD BUN and Creatinine 2.8 rising Replace K, possible extubation Continue Bumex gtt. (2) CKD (chronic kidney disease) stage 4, GFR 15-29 ml/min Plan: Known history of kidney disease as above due to diabetes (3) CHF (congestive heart failure) Plan: On the ventilator (4) Atrial fibrillation with RVR Plan: Continue to monitor (5) Respiratory failure Plan: On ventilator (6) Pneumonia (7) Hyperkalemia Plan: resolved Problem Qualifiers (1) Acute renal failure: Qualified Code: N17.0 - Acute renal failure with tubular necrosis (2) Respiratory failure: Qualified Code: J96.01 - Acute respiratory failure with hypoxia Niko Delgadillo MD Nov 23, 2016 10:22
[2016-11-23] MEDS ORDERED: POTASSIUM CHLORIDE INJ 40 MEQ in SODIUM CHLORID 0.9% 500 ML INJ 500 ML IV-CENTRAL ONE (12:00)
[2016-11-23] MEDS: LINEZOLID 600 MG PREMIX 300 ML IV SCH (12:24)
--- NOTE | 2016-11-23 13:28 | HHI.HCPN ---
Reason for visit a. To assist with evaluation and management of symptoms including: dyspnea, weakness. b. To assist medical decision maker(s) with: better understanding of current medical conditions; weighing benefits/burdens of medical treatment options; making medical treatment decisions. . Subjective/Interval History Patient seen and examined in ICU. Susan at bedside. has a good understanding of current medical condition. Plan for medical extubation today. Again confirmed does not want reintubation. Afebrile. Tachycardic. WBC 8.4. Creatinine increased to 2.84. No new imaging. . Family/friend interactions see interval note. . Advance Directives Living Will: Completed, but not made available ( indicates patient has a living will she has no idea where it is.) Advance Directive Specifics Health Care Surrogate(s): Patient is incapacitated, will not likely regained capacity. According to [place] statutes, in the absence of written advance directives, health care proxy decision-making falls to the patient's spouse. . Significant change in goals: NO CODE. Do not reintubate if medically extubated if fails. . Objective Vital Signs Date Time Temp Pulse Resp B/P Pulse Ox O2 Delivery O2 Flow Rate FiO2 11/23/16 11:19 94 35 11/23/16 10:00 121 11/23/16 08:00 99.4 112 13 117/59 94 11/23/16 08:00 125 11/23/16 08:00 35 11/23/16 07:42 96 35 11/23/16 06:00 136 11/23/16 04:04 98 35 11/23/16 04:00 135 11/23/16 04:00 35 11/23/16 04:00 98.0 135 16 101/58 95 11/23/16 02:00 127 11/23/16 01:02 97 35 11/23/16 00:00 119 11/23/16 00:00 35 11/23/16 00:00 98.3 119 10 114/58 96 11/22/16 22:00 131 11/22/16 21:00 93/57 11/22/16 20:00 117 11/22/16 20:00 35 11/22/16 20:00 98.5 117 10 80/53 95 11/22/16 19:35 96 35 11/22/16 18:01 97 35 11/22/16 18:00 104 11/22/16 16:15 35 11/22/16 16:00 98.0 113 8 134/66 98 11/22/16 16:00 40 11/22/16 16:00 104 11/22/16 14:00 104 Intake & Output 11/23/16 11/23/16 07:00 19:00 Intake Total 727 ml Output Total 925 ml Balance -198 ml Intake Oral 0 ml IV Total 727 ml Output Urine Total 725 ml Gastric Drainage Total 200 ml # Bowel Movements 0 Physical Exam CONSTITUTIONAL/GENERAL: This is an adequately nourished patient, sedated on mechanical ventilation. TUBES/LINES/DRAINS: ETT, OG, right subclavian central line, Jenkins, bilateral soft wrist restraints, STDs, podus boots. SKIN: pallor. Ecchymoses on upper extremities. Dressing right hand. Stage II pressure ulcer sacrum, not visualized today. Skin temperature appropriate. Not diaphoretic. ENT: unable to adequately assess hearing. Difficult to visualize throat secondary to tubes. CARDIOVASCULAR: atrial fibrillation on monitor. Rate 90 120 without murmurs, gallops, or rubs. No JVD. RESPIRATORY/CHEST: Symmetric, unlabored respirations on mechanical ventilation. Scattered course breath sounds. Expiratory wheeze noted on left. GASTROINTESTINAL: Abdomen soft, non-tender, nondistended. Protuberant. No guarding. Bowel sounds present. GENITOURINARY: Without palpable bladder distension. MUSCULOSKELETAL: Extremities with 3+ pitting, weeping edema. No mottling or clubbing. NEUROLOGICAL: Lethargic, nods no when asked to open his eyes. PSYCHIATRIC: Off sedation. . Diagnostic Tests Laboratory Laboratory Tests Test 11/21/16 11/22/16 11/23/16 04:00 03:36 04:00 White Blood Count 9.1 TH/MM3 8.4 TH/MM3 (4.0-11.0) (4.0-11.0) Red Blood Count 3.19 MIL/MM3 3.29 MIL/MM3 (4.50-5.90) (4.50-5.90) Hemoglobin 8.8 GM/DL 9.0 GM/DL (13.0-17.0) (13.0-17.0) Hematocrit 27.0 % 27.4 % (39.0-51.0) (39.0-51.0) Mean Corpuscular Volume 84.5 FL 83.5 FL (80.0-100.0) (80.0-100.0) Mean Corpuscular Hemoglobin 27.7 PG 27.5 PG (27.0-34.0) (27.0-34.0) Mean Corpuscular Hemoglobin 32.8 % 32.9 % Concent (32.0-36.0) (32.0-36.0) Red Cell Distribution Width 18.0 % 17.8 % (11.6-17.2) (11.6-17.2) Platelet Count 118 TH/MM3 115 TH/MM3 (150-450) (150-450) Mean Platelet Volume 8.6 FL 8.5 FL (7.0-11.0) (7.0-11.0) Neutrophils (%) (Auto) 93.6 % 93.9 % (16.0-70.0) (16.0-70.0) Lymphocytes (%) (Auto) 2.8 % 2.6 % (9.0-44.0) (9.0-44.0) Monocytes (%) (Auto) 3.3 % (0.0-8.0) 3.3 % (0.0-8.0) Eosinophils (%) (Auto) 0.2 % (0.0-4.0) 0.1 % (0.0-4.0) Basophils (%) (Auto) 0.1 % (0.0-2.0) 0.1 % (0.0-2.0) Neutrophils # (Auto) 8.6 TH/MM3 7.9 TH/MM3 (1.8-7.7) (1.8-7.7) Lymphocytes # (Auto) 0.3 TH/MM3 0.2 TH/MM3 (1.0-4.8) (1.0-4.8) Monocytes # (Auto) 0.3 TH/MM3 0.3 TH/MM3 (0-0.9) (0-0.9) Eosinophils # (Auto) 0.0 TH/MM3 0.0 TH/MM3 (0-0.4) (0-0.4) Basophils # (Auto) 0.0 TH/MM3 0.0 TH/MM3 (0-0.2) (0-0.2) CBC Comment AUTO DIFF AUTO DIFF Differential Total Cells 100 100 Counted Neutrophils % (Manual) 98 % (16-70) 96 % (16-70) Band Neutrophils % 2 % (0-6) Neutrophils # (Manual) 9.1 TH/MM3 8.3 TH/MM3 (1.8-7.7) (1.8-7.7) Differential Comment FINAL DIFF FINAL DIFF MANUAL MANUAL Platelet Estimate LOW (NORMAL) LOW (NORMAL) Platelet Morphology Comment NORMAL NORMAL (NORMAL) (NORMAL) Tear Drop Cells 1+ (NORMAL) Ovalocytes 1+ (NORMAL) 1+ (NORMAL) Sodium Level 136 MEQ/L 138 MEQ/L 137 MEQ/L (136-145) (136-145) (136-145) Potassium Level 3.1 MEQ/L 2.7 MEQ/L 3.3 MEQ/L (3.5-5.1) (3.5-5.1) (3.5-5.1) Chloride Level 96 MEQ/L 98 MEQ/L 100 MEQ/L (98-107) (98-107) (98-107) Carbon Dioxide Level 23.0 MEQ/L 23.3 MEQ/L 23.3 MEQ/L (21.0-32.0) (21.0-32.0) (21.0-32.0) Anion Gap 17 MEQ/L (5-15) 17 MEQ/L (5-15) 14 MEQ/L (5-15) Blood Urea Nitrogen 98 MG/DL (7-18) 99 MG/DL (7-18) 104 MG/DL (7-18) Creatinine 2.53 MG/DL 2.66 MG/DL 2.84 MG/DL (0.60-1.30) (0.60-1.30) (0.60-1.30) Estimat Glomerular Filtration 25 ML/MIN (>89) 23 ML/MIN (>89) 22 ML/MIN (>89) Rate Random Glucose 361 MG/DL 305 MG/DL 243 MG/DL (74-106) (74-106) (74-106) Calcium Level 7.3 MG/DL 7.9 MG/DL 7.6 MG/DL (8.5-10.1) (8.5-10.1) (8.5-10.1) Protein Corrected Calcium 8.4 MG/DL (8.5-10.1) Magnesium Level 1.7 MG/DL 1.7 MG/DL (1.5-2.5) (1.5-2.5) Total Bilirubin 0.7 MG/DL 0.8 MG/DL (0.2-1.0) (0.2-1.0) Aspartate Amino Transf LESS THAN 3 LESS THAN 3 (AST/SGOT) U/L (15-37) U/L (15-37) Alanine Aminotransferase 16 U/L (12-78) 13 U/L (12-78) (ALT/SGPT) Alkaline Phosphatase 103 U/L 85 U/L (45-117) (45-117) Total Protein 5.1 GM/DL 4.9 GM/DL (6.4-8.2) (6.4-8.2) Albumin 2.9 GM/DL 2.9 GM/DL (3.4-5.0) (3.4-5.0) Lymphocytes % 1 % (9-44) Metamyelocytes 2 % (0-1) Myelocytes 1 % (0-0) Result Diagram: 11/22/16 0336 11/23/16 0400 Imaging Last Impressions Chest X-Ray 11/22/16 0600 Signed Impressions: Service Date/Time: Tuesday, November 22, 2016 03:08 - CONCLUSION: No significant change has occurred. Paras Victor MD Upper Extremity Ultrasound 11/18/16 Signed Impressions: Service Date/Time: Friday, November 18, 2016 15:25 - CONCLUSION: Normal examination. Abdon Londono MD Renal Ultrasound 11/18/16 Signed Impressions: Service Date/Time: Friday, November 18, 2016 15:08 - CONCLUSION: Mild thinning of the cortex which may represent prior intimal disease. No evidence of hydronephrosis. 2.4 cm cyst upper pole of the right kidney. Urinary bladder decompressed with Jenkins catheter in place Rome Dwyer MD Lower Extremity Ultrasound 11/18/16 Signed Impressions: Service Date/Time: Friday, November 18, 2016 14:32 - CONCLUSION: Normal examination. No evidence DVT Rome Dwyer MD Head CT 11/18/16 Signed Impressions: Service Date/Time: Friday, November 18, 2016 11:11 - CONCLUSION: Negative for an acute process. Girish Cervantes MD FACR . Procedures * 11/19/16 right subclavian central line placed * 11/18/16 intubated . Assessment and Plan Disease Oriented Problem List: (1) Atrial fibrillation with RVR (2) CKD (chronic kidney disease) stage 4, GFR 15-29 ml/min (3) Respiratory failure (4) Pneumonia (5) CHF (congestive heart failure) (6) Congestive heart failure (7) Stage II pressure ulcer of buttock (8) DM (diabetes mellitus) (9) Hypertension (10) A-fib (11) Anemia (12) Debility (13) Acute on chronic renal failure Symptom Scale: (1) Debility 0-10 Scale: Unable to quantify (2) Dyspnea 0-10 Scale: Unable to quantify (3) Pain 0-10 Scale: Unable to quantify Pertinent Non-Medical Issues Psychosocial: lives with his 17 years. Supported by their children. Spiritual: was born Sh[employer], well supported by their uatsdin. Legal: Patient is incapacitated, will not likely regained capacity. According to [place] statutes, in the absence of written advance directives, health care proxy decision-making falls to the patient's spouse. Ethical issues impacting care: no known concerns at this time. . Important Contacts * Susan Monahan, /HCP: [phone] or [phone] Prognosis Overall prognosis appears poor for meaningful recovery given advanced age, multiple comorbidities, acute on chronic illness and trajectory of decline prior to hospitalization dating back to August 2016. . Code Status: No Code Plan * Decision Maker: Patient is incapacitated, will not likely regained capacity. According to [place] statutes, in the absence of written advance directives, health care proxy decision-making falls to the patient's spouse. In making will also be supported by the patient's 2 daughters Lolita and Liliya once they arrive from out of town. * NO CODE * 11/23/16 Palliative care: I met with the patient's , Susan. Plans for possible medical extubation today. DO NOT reintubate if fails. Will further clarify goals if pt fails extubation. * SYMPTOMS: Pain and dyspnea: comfortable during today's visit. On [facility] vent. * Palliative care will continue to follow throughout hospital course to assist with symptom management and clarification of goals as needed. . Attestation To help prompt me to consider important information that might be impacting today's encounter and assessment, information from prior notes written by myself or my colleagues may have been "brought forward" into today's note. My signature on this note, however, is an attestation that I personally performed the exam, history, and/or decision-making noted today, and, unless otherwise indicated, the interactions with patient, family, and staff as well as the review of records all occurred today. I also attest that the listed assessment and stated plan reflect my best clinical judgment today based on the combination of historical information, prior notes, and today's exam/ interactions. When time spent is documented, it refers only to time spent today by the signer, or if indicated, combined time spent today by collaborating physician/nurse practitioner. NISHANT STEVE Nov 23, 2016 13:28 with symptom management and clarification of goals as needed. . Attestation To help prompt me to consider important information that might be impacting today's encounter and assessment, information from prior notes written by myself or my colleagues may have been "brought forward" into today's note. My signature on this note, however, is an attestation that I personally performed the exam, history, and/or decision-making noted today, and, unless otherwise indicated, the interactions with patient, family, and staff as well as the review of records all occurred today. I also attest that the listed assessment and stated plan reflect my best clinical judgment today based on the combination of historical information, prior notes, and today's exam/ interactions. When time spent is documented, it refers only to time spent today by the signer, or if indicated, combined time spent today by collaborating physician/nurse practitioner. NISHANT STEVE Nov 23, 2016 13:28
--- NOTE | 2016-11-23 14:54 | HHI.CCPN ---
Subjective Remarks/Hospital Course The patient is a 81-year-old male with multiple medical comorbidities which include CHF, COPD, chronic kidney disease with history in the recent past of hemodialysis which was later discontinued, hypertension, hyperlipidemia, diabetes mellitus, BPH and peripheral neuropathy. He presented to [facility] ED from a local nursing facility for respiratory distress. Upon ambulance services arrival the patient had O2 saturation in the 70s and he was briefly placed on a non-rebreather mask where his O2 saturation improved to up in the 80s. However, the patient was tachycardic with heart rate in the 150s. He had a GCS score of 4 and was subsequently intubated by ambulance services prior to arrival after he was given etomidate and Ativan. His initial systolic blood pressure in the 80s and the patient responded to fluid resuscitation and his last blood pressure is 107/55 with a MAP of 72. The patient's blood sugar prior to arrival was 93. CT scan of the brain was obtained which was negative for acute process. Chest x-ray showed ET tube above the diana and pulmonary infiltrates, right greater than left. ABG post-intubation showed a pH of 7.20, CO2 58, pAO2 235, bicarb 22, saturation of 95% on assist control ventilation with a respiratory rate of 16, tidal volume 500, PEEP of 5 and FIO2 of 100%. His laboratory data is significant for acute on chronic kidney disease with BUN of 90, creatinine 2.65 and potassium of 5.3. His BNP was elevated at 395. EKG in the ER showed atrial fibrillation with RVR at a rate of 134 beats per minute. In the ED the patient was placed on fentanyl infusion for sedation which is currently at 80 mics. In addition he was given vancomycin and Zosyn. The patient also had nonocclusive thrombus of the right IJ vein in September and was placed on Eliquis 2.5 mg b.i.d., part of his home medications. The rest of the history is limited as the patient is intubated. 11/19: Patient remains intubated sedated with fentanyl. Tachycardic and heart rate 160s. Systolic blood pressure low at 70s. Levophed started. Urine output 1.8 L in 24 hours urine creatinine remains elevated 93/2.5. Chest x-ray shows pulmonary edema. EF 40-45% on 2-D echo. I will discontinue Bumex daily and started on Bumex infusion 11/20: Remains intubated sedated critically ill. Remains on vasopressin 0.04 international units. Currently on amiodarone infusion with heart rate varying from 110-130 11/21: Remains on vasopressin and amiodarone. No acute events overnight. Will start CPAP trails if criteria met. UO adequate 11/22: Patient tolerating C Pap trials today, still under residual sedation. Vasopressin had been turned off. Urine output more than 2 L. Remains on amiodarone infusion 11/23: Tolerating CPAP 15/5 but mental status will not permit extubation. Weekly follows commands. UO adequate, creat increased to 2.84. On Bumex and Amiodarone gtt Objective Vital Signs Date Time Temp Pulse Resp B/P Pulse Ox O2 Delivery O2 Flow Rate FiO2 11/23/16 14:00 103 11/23/16 12:00 99.3 15 105/58 91 11/23/16 12:00 35 Intake and Output 11/22/16 11/22/16 11/23/16 08:00 16:00 00:00 Intake Total 832 ml 1125 ml 277 ml Output Total 800 ml 550 ml 450 ml Balance 32 ml 575 ml -173 ml Result Diagram: 11/22/16 0336 11/23/16 0400 Objective Remarks PHYSICAL EXAMINATION GENERAL: 81-year-old male intubated for respiratory failure. HEENT: Atraumatic, normocephalic pupil equal, round, reactive to light. Orally intubated. NECK: Supple. No JVD, adenopathy or thyromegaly. Trachea midline. CARDIOVASCULAR: Tachycardic, irregularly, irregular. No murmurs, rubs or gallops noted. PULMONARY: Bilateral equal air entry with few coarse breath sounds. Air entry is diminished predominantly at the bases ABDOMEN: Soft, obese, nontender, no distension. Positive bowel sounds. EXTREMITIES: No cyanosis, clubbing, 2+ edema of lower extremity and also edema of right upper extremity noted as well. NEURO: Patient is intubated sedated off sedation. Weakly following commands on extremities Side: Right Location: Subclavian A/P Assessment and Plan IMPRESSION Acute hypercapnic and hypoxemic respiratory failure. Atrial fibrillation with rapid ventricular response Hypotension Congestive heart failure Diffuse pulmonary infiltrates, differential diagnosis fluid overload vs infectious process. Possible aspiration pneumonia. Anemia of chronic disease. Acute on chronic kidney disease. Nonocclusive thrombus of the right IJ vein from September. History of CHF. COPD. Hypertension. Diabetes mellitus/dyslipidemia. BPH. Gout. Obstructive sleep apnea. Morbid obesity. RECOMMENDATIONS Neuro: -Hold all sedation for possible extubation, now held for 24 hours with improving mental status -CT scan of the brain in the ED negative for acute process. Resp: -Continue with vent support and maintain Sats above 90%. -Bronchodilators in the form of DuoNeb q. 6 and ICU vent bundle. -Holding p.o. prednisone and the patient continued on hydrocortisone 50 mg IV q. 8 -Spontaneous breathing trials with possible extubation when mental status permits CVS: -Continue Amiodarone infusion titrated to keep heart rate less than 110 -IV digoxin 0.25 mg 1 repeat dose 11/20/16, 11/22/16 -Continue vasopressin to keep map above 65-currently weaned off -2D Echo -EF 40-45% GI: -Tube feeds with Nepro. IV Protonix for GI prophylaxis : -Monitor renal function, I&O's and avoid nephrotoxins. -Nephrology service Dr. Delgadillo following-continue Bumex infusion 0.5 mg per hour ID: -Continue with broad-spectrum antibiotics in the form of Zosyn and Zyvox. -Patient was given vancomycin and Zosyn in the ED. -Follow up on the blood and urine cultures. His nasal aspirate for influenza is negative. -Negative strep pneumonia and Legionella urinary antigen. Heme: -Monitor CBC and coags. Endo: -Sliding scale insulin with Accu-Chek for glycemic control. Proph: -Doppler US LE and RUE r/o DVT-negative -GI prophylaxis with Protonix 40 mg daily and DVT prophylaxis with SCDs and Eliquis 2.5 mg b.i.d. Level 2. Critically ill currently DNR. Remains on pressors. Family requests weaning to extubation. if he does not do well after extubation transition to comfort measures Tarun Coppola MD Nov 23, 2016 14:54
[2016-11-24] VITALS (17 sets, daily range): BP systolic 88–153; BP diastolic 44–72; PULSE 95–147; RESP 15–30; TEMP 98.3–98.9; O2SAT 91–98
[2016-11-24] MEDS: LINEZOLID 600 MG PREMIX 300 ML IV SCH ×2 (00:13→11:52)
[2016-11-24] MEDS: PIPERACIL-TAZO 2.25 GM PREMIX 50 ML IV SCH ×4 (00:13→15:35)
[2016-11-24] MEDS: SODIUM CHLOR 0.9% 1000 ML INJ 1,000 ML IV SCH (00:14)
[2016-11-24] MEDS: HYDROCORTISONE SOD SUCCINATE 100 MG VIAL IV PUSH SCH ×4 (00:14→20:16)
[2016-11-24] MEDS: INSULIN ASPART SUPPLEMENTAL SCALE SQ SCH ×4 (00:22→18:01)
[2016-11-24] MEDS: CHLORHEXIDINE GLUCONATE 2 % 1 PACK (2 CLOTHS) TOP SCH (02:56)
[2016-11-24] MEDS: AMIODARONE INJ 450 MG in DEXTROSE 5% IN WATE(EXCEL) INJ 241 ML IV SCH ×2 (06:01)
--- NOTE | 2016-11-24 07:35 | HHI.CCPN ---
Subjective Remarks/Hospital Course The patient is a 81-year-old male with multiple medical comorbidities which include CHF, COPD, chronic kidney disease with history in the recent past of hemodialysis which was later discontinued, hypertension, hyperlipidemia, diabetes mellitus, BPH and peripheral neuropathy. He presented to [facility] ED from a local nursing facility for respiratory distress. Upon ambulance services arrival the patient had O2 saturation in the 70s and he was briefly placed on a non-rebreather mask where his O2 saturation improved to up in the 80s. However, the patient was tachycardic with heart rate in the 150s. He had a GCS score of 4 and was subsequently intubated by ambulance services prior to arrival after he was given etomidate and Ativan. His initial systolic blood pressure in the 80s and the patient responded to fluid resuscitation and his last blood pressure is 107/55 with a MAP of 72. The patient's blood sugar prior to arrival was 93. CT scan of the brain was obtained which was negative for acute process. Chest x-ray showed ET tube above the diana and pulmonary infiltrates, right greater than left. ABG post-intubation showed a pH of 7.20, CO2 58, pAO2 235, bicarb 22, saturation of 95% on assist control ventilation with a respiratory rate of 16, tidal volume 500, PEEP of 5 and FIO2 of 100%. His laboratory data is significant for acute on chronic kidney disease with BUN of 90, creatinine 2.65 and potassium of 5.3. His BNP was elevated at 395. EKG in the ER showed atrial fibrillation with RVR at a rate of 134 beats per minute. In the ED the patient was placed on fentanyl infusion for sedation which is currently at 80 mics. In addition he was given vancomycin and Zosyn. The patient also had nonocclusive thrombus of the right IJ vein in September and was placed on Eliquis 2.5 mg b.i.d., part of his home medications. The rest of the history is limited as the patient is intubated. 11/19: Patient remains intubated sedated with fentanyl. Tachycardic and heart rate 160s. Systolic blood pressure low at 70s. Levophed started. Urine output 1.8 L in 24 hours urine creatinine remains elevated 93/2.5. Chest x-ray shows pulmonary edema. EF 40-45% on 2-D echo. I will discontinue Bumex daily and started on Bumex infusion 11/20: Remains intubated sedated critically ill. Remains on vasopressin 0.04 international units. Currently on amiodarone infusion with heart rate varying from 110-130 11/21: Remains on vasopressin and amiodarone. No acute events overnight. Will start CPAP trails if criteria met. UO adequate 11/22: Patient tolerating C Pap trials today, still under residual sedation. Vasopressin had been turned off. Urine output more than 2 L. Remains on amiodarone infusion 11/23: Tolerating CPAP 15/ but mental status will not permit extubation. Weekly follows commands. UO adequate, creat increased to 2.84. On Bumex and Amiodarone gtt 11/24 Patient is on Amio and Bumex drips. Afebrile. On no sedation. Objective Vital Signs Date Time Temp Pulse Resp B/P Pulse Ox O2 Delivery O2 Flow Rate FiO2 11/24/16 07:07 94 40 11/24/16 06:00 119 11/24/16 04:00 98.3 24 132/62 Intake and Output 11/23/16 11/23/16 11/24/16 08:00 16:00 00:00 Intake Total 450 ml 805 ml 570 ml Output Total 475 ml 250 ml 300 ml Balance -25 ml 555 ml 270 ml Result Diagram: 11/22/16 0336 11/23/16 0400 Imaging Last Impressions Chest X-Ray 11/22/16 0600 Signed Impressions: Service Date/Time: Tuesday, November 22, 2016 03:08 - CONCLUSION: No significant change has occurred. Paras Victor MD Upper Extremity Ultrasound 11/18/16 0000 Signed Impressions: Service Date/Time: Friday, November 18, 2016 15:25 - CONCLUSION: Normal examination. Abdon Londono MD Renal Ultrasound 11/18/16 0000 Signed Impressions: Service Date/Time: Friday, November 18, 2016 15:08 - CONCLUSION: Mild thinning of the cortex which may represent prior intimal disease. No evidence of hydronephrosis. 2.4 cm cyst upper pole of the right kidney. Urinary bladder decompressed with Jenkins catheter in place Rome Dwyer MD Lower Extremity Ultrasound 11/18/16 0000 Signed Impressions: Service Date/Time: Friday, November 18, 2016 14:32 - CONCLUSION: Normal examination. No evidence DVT Rome Dwyer MD Head CT 11/18/16 0000 Signed Impressions: Service Date/Time: Friday, November 18, 2016 11:11 - CONCLUSION: Negative for an acute process. Girish Cervantes MD FACR Objective Remarks PHYSICAL EXAMINATION GENERAL: 81-year-old male intubated for respiratory failure. HEENT: Atraumatic, normocephalic pupil equal, round, reactive to light. Orally intubated. NECK: Supple. No JVD, adenopathy or thyromegaly. Trachea midline. CARDIOVASCULAR: Tachycardic, irregularly, irregular. No murmurs, rubs or gallops noted. PULMONARY: Bilateral equal air entry with few coarse breath sounds. Air entry is diminished predominantly at the bases ABDOMEN: Soft, obese, nontender, no distension. Positive bowel sounds. EXTREMITIES: No cyanosis, clubbing, 2+ edema of lower extremity and also edema of right upper extremity noted as well. NEURO: Patient is intubated off sedation. Weakly following commands on extremities Side: Right Location: Subclavian A/P Assessment and Plan IMPRESSION Acute hypercapnic and hypoxemic respiratory failure. Atrial fibrillation with rapid ventricular response Congestive heart failure Diffuse pulmonary infiltrates, differential diagnosis fluid overload vs infectious process. Possible aspiration pneumonia. Anemia of chronic disease. Acute on chronic kidney disease. Nonocclusive thrombus of the right IJ vein from September. History of CHF. COPD. Hypertension. Diabetes mellitus/dyslipidemia. BPH. Gout. Obstructive sleep apnea. Morbid obesity. RECOMMENDATIONS Neuro: -Off sedation, monitor neuro status and avoid sedatives. -CT scan of the brain in the ED negative for acute process. Resp: -Continue with vent support and maintain sats above 90%. -Bronchodilators in the form of DuoNeb q. 6 and ICU vent bundle. -Decrease hydrocortisone 50 mg IV q. 6 -Spontaneous breathing trials as jade. Spoke to patient's if he gets extubated and goes into resp distress she does not want him to be reintubated and will consider transitioning him to comfort care at that time. CVS: -Continue Amiodarone infusion titrated to keep heart rate less than 110 -Place on Lopressor 50mg Q12 monitor HR and BP keep MAP>65mmHg -2D Echo -EF 40-45% GI: -Start Tube feeds with Nepro if remains intubated today. IV Protonix for GI prophylaxis : -Monitor renal function, I&O's and avoid nephrotoxins. -Nephrology service Dr. Delgadillo following-On Bumex drip 0.25mg/hr ID: -Continue with broad-spectrum antibiotics in the form of Zosyn and Zyvox. -Patient was given vancomycin and Zosyn in the ED. - His nasal aspirate for influenza is negative. -Negative strep pneumonia and Legionella urinary antigen. Heme: -Monitor CBC and coags. Endo: -Sliding scale insulin with Accu-Chek for glycemic control ( medium scale). Proph: -Doppler US LE and RUE r/o DVT-negative -GI prophylaxis with Protonix 40 mg daily and DVT prophylaxis with SCDs and Eliquis 2.5 mg b.i.d. Palliative care on case. Level 3 Alejandro Rashid MD Nov 24, 2016 07:35
[2016-11-24] MEDS: APIXABAN 2.5 MG TABLET PO SCH (08:00)
[2016-11-24] MEDS: PANTOPRAZOLE SODIUM 40 MG VIAL IV SCH (08:00)
[2016-11-24] MEDS: CHLORHEXIDINE 0.12% (ORAL KIT) 15 ML CUP MT SCH (08:00)
[2016-11-24 08:09] LABS: AUTOMATED NEUTROPHIL # 15.2 TH/MM3 (1.8-7.7); BASOPHIL % 0.1 % (0.0-2.0); HEMATOCRIT 29.4 % (39.0-51.0); LYMPH % 2.3 % (9.0-44.0); LYMPHOCYTE # 0.4 TH/MM3 (1.0-4.8); MEAN CELL VOLUME 83.8 FL (80.0-100.0); MEAN CORPUSCULAR HEMOGLOBIN 27.7 PG (27.0-34.0); MONO % 1.7 % (0.0-8.0); NEUT % 95.9 % (16.0-70.0); PLATELET COUNT 89 TH/MM3 (150-450); RED BLOOD COUNT 3.51 MIL/MM3 (4.50-5.90); WHITE BLOOD COUNT 15.9 TH/MM3 (4.0-11.0)
[2016-11-24 08:18] LABS: HEMO FLAGS AUTO DIFF
[2016-11-24 08:24] LABS: BICARBONATE 23.1 MEQ/L (21.0-32.0); POTASSIUM 3.2 MEQ/L (3.5-5.1)
[2016-11-24 08:48] LABS: BANDS 3 % (0-6); MYELOCYTES 1 % (0-0); NEUTROPHIL # MANUAL DIFF 14.9 TH/MM3 (1.8-7.7); POLYS (SEG NEUTROPHILS) 90 % (16-70); WBC DIFF SAMPLE 100
[2016-11-24 08:50] LABS: KERATOCYTES OCC (NORMAL)
[2016-11-24 08:51] LABS: PLATELET ESTIMATE SMEAR LOW (NORMAL); PLATELET MORPHOLOGY NORMAL (NORMAL); SCAN/DIFF FINAL DIFF MANUAL
[2016-11-24] MEDS ORDERED: METOPROLOL TARTRATE 50 MG TAB PO SCH (09:00)
[2016-11-24] MEDS: SODIUM CHLORIDE 0.9% FLUSH 5 ML FLUSH IVF SCH ×2 (09:00→20:16)
[2016-11-24] MEDS ORDERED: RESP: ALBUTEROL 2.5 MG/IPRATROPIUM 0.5 MG NEB (SCH) NEB ×2 (10:00→16:00)
--- NOTE | 2016-11-24 10:48 | HHI.NPPN ---
Subjective History of Present Illness 81 year old with CKD/CHF/COPD Additional Remarks Patient is intubated awake Objective Data Data 11/23/16 11/24/16 19:00 07:00 Intake Total 805 ml 1259 ml Output Total 250 ml 750 ml Balance 555 ml 509 ml IV Total 805 ml 909 ml Other 350 ml Output Urine Total 250 ml 750 ml # Bowel Movements 0 0 Vital Signs Date Time Temp Pulse Resp B/P Pulse Ox O2 Delivery O2 Flow Rate FiO2 11/24/16 07:07 94 40 11/24/16 06:00 119 11/24/16 04:00 40 11/24/16 04:00 126 11/24/16 04:00 98.3 109 24 132/62 95 11/24/16 03:57 98 40 11/24/16 02:00 111 11/24/16 00:35 96 40 11/24/16 00:00 40 11/24/16 00:00 104 11/24/16 00:00 98.9 147 24 130/71 97 11/23/16 22:00 123 11/23/16 20:00 40 11/23/16 20:00 125 11/23/16 20:00 98.2 136 17 137/84 96 11/23/16 19:32 96 40 11/23/16 18:10 45 11/23/16 18:00 124 11/23/16 16:00 45 11/23/16 16:00 120 11/23/16 16:00 98.8 120 26 105/58 93 11/23/16 15:43 95 45 11/23/16 14:00 103 11/23/16 12:00 99.3 102 15 105/58 91 11/23/16 12:00 35 11/23/16 12:00 114 11/23/16 11:19 94 35 -: 11/24/16 0750 11/24/16 0750 Physical Exam Neck Neck Exam: Neck Supple Pulmonary Resp Exam: Rhonchi, Decreased Bases, Diminished Breath Sounds Cardiology CV Exam: Arrhythmia Gastrointestinal/Abdomen GI Exam: Soft, Bowel Sounds Present, Distended Extremeties Extremities Exam: Moderate Edema, Pitting Edema Neurologic Neuro Exam: Sedated Assessment/Plan Problem List: (1) Acute renal failure Plan: Patient has nonoliguric.on Bumex gtt he has increase UOP since this am, yesterday slowed down BUN/ creatinine higher has stage 4 CKD BUN and Creatinine 3 rising Replace K, possible extubation stop Bumex drip and wait till tomorrow to resume Bumex 1 mg q 12. check Mg/PO4 (2) CKD (chronic kidney disease) stage 4, GFR 15-29 ml/min Plan: Known history of kidney disease as above due to diabetes (3) CHF (congestive heart failure) Plan: On the ventilator (4) Atrial fibrillation with RVR Plan: Continue to monitor (5) Respiratory failure Plan: On ventilator (6) Pneumonia (7) Hyperkalemia Plan: resolved Problem Qualifiers (1) Acute renal failure: Qualified Code: N17.0 - Acute renal failure with tubular necrosis (2) Respiratory failure: Qualified Code: J96.01 - Acute respiratory failure with hypoxia Niko Delgadillo MD Nov 24, 2016 10:48
[2016-11-24 11:34] LABS: BLOOD GAS CARBOXYHEMOGLOBIN 1.9 % (0-4); BLOOD GAS HCO3 21 mmol/L (22-26); BLOOD GAS O2 HGB SATURATION 93 % (90-100); BLOOD GAS OXYGEN CONTENT 12.9 Vol % (12.0-20.0); BLOOD GAS PCO2 38 mmHg (38-42); BLOOD GAS PO2 77 mmHg (61-120); BLOOD GAS TOTAL HGB 9.8 G/DL (12.0-16.0); TEMP CORR TO 98.6
[2016-11-24 11:35] LABS: CRITICAL VALUE NO; DRAW SITE LT RADIAL; FIO2 40 %; NUMBER OF ARTERIAL PUNCTURES 1; OXYGEN DEVICE VENTILATOR; VENT SETTINGS CPAP5/10/
[2016-11-24 11:36] LABS: STAT NO; ULNAR PULSE PRESENT
[2016-11-24] MEDS ORDERED: POTASSIUM CHLORIDE INJ 40 MEQ in SODIUM CHLORID 0.9% 500 ML INJ 500 ML IV-CENTRAL ONE (12:00)
--- NOTE | 2016-11-24 13:01 | RADRPT ---
EXAM DATE/TIME: 11/24/2016 11:48 [facility] COMPARISON: Prior study 11/22/16. INDICATIONS: Respiratory failure. MEDICAL HISTORY: Hypercholesterolemia. Hypertension. Benign prostatic hyperplasia, (BPH) DVT. Gout neck and shoulder. Congestive heart failure. Neuropathy feet. A-Fib. COPD. Emphysema. Asthma. GI Bleed. Sleep apnea - CP AP. Renal disease. GERD. Sciatica, right. Arthritis. Diabetes. SURGICAL HISTORY: Bilateral cataracts. Penile implant. ENCOUNTER: Subsequent ACUITY: 4 - 6 days PAIN SCORE: Non-responsive. LOCATION: Chest FINDINGS: A single view of the chest demonstrates the ET tube, NG tube, right subclavian central line all in go od position. There is bilateral pulmonary vascular congestion. Moderate sized bilateral pleural eff usion left greater than right. No pneumothorax seen. CONCLUSION: Tubes and catheter stable. Persistent pulmonary vascular congestion with pleural effusions unchanged . Guru Ruiz MD on November 24, 2016 at 12:50 Board Certified Radiologist. This report was verified electronically.
[2016-11-24] MEDS ORDERED: RESP: ALBUTEROL 2.5 MG/IPRATROPIUM 0.5 MG NEB (PRN) INH (14:00)
--- NOTE | 2016-11-24 16:37 | HHI.HCPN ---
Reason for visit a. To assist with evaluation and management of symptoms including: dyspnea, weakness. b. To assist medical decision maker(s) with: better understanding of current medical conditions; weighing benefits/burdens of medical treatment options; making medical treatment decisions. . Subjective/Interval History Visit done 11 AM. Patient seen and examined in ICU. Susan at bedside. has a good understanding of current medical condition. Plan for medical extubation today. Again confirmed does not want reintubation. Afebrile. Tachycardic. WBC increased 15.9 today from 8.4 yesterday. Creatinine increased to 3.07. Off pressors. Chest x-ray revealed persistent pulmonary vascular congestion with pleural effusions unchanged. . Family/friend interactions 3 PM: Call from nurse to report patient condition appears to be declining post medical extubation. Nurse indicates he only lasted approximately 10 minutes on nasal cannula, patient is now on non-rebreather mask. Blood pressure 90 systolic. Patient is more lethargic. Nurse was going to call patient's to notify of clinical change. 4 PM: Met with and patient's best friend at bedside, medical update provided. After review of clinical condition and likely disease trajectory, desires transition to comfort focused care with hospice support. Prognosis hours to days. is interested in [facility] placement. Called [facility], they are reserving a bed for patient. Hospice consulted. Goals are comfort oriented. Advance Directives Living Will: Completed, but not made available ( indicates patient has a living will she has no idea where it is.) Advance Directive Specifics Health Care Surrogate(s): Patient is incapacitated, will not likely regained capacity. According to [place] statutes, in the absence of written advance directives, health care proxy decision-making falls to the patient's spouse. . Significant change in goals: NO CODE. has elected transition to comfort focused care with hospice support, plan to discharged to care Center when arrangements complete 11/24/16. Objective Vital Signs Date Time Temp Pulse Resp B/P Pulse Ox O2 Delivery O2 Flow Rate FiO2 11/24/16 14:00 98 11/24/16 13:12 96 Nasal Cannula 5.00 11/24/16 13:12 96 Nasal Cannula 5 11/24/16 12:04 95 40 11/24/16 12:00 45 11/24/16 12:00 98.3 120 30 153/72 96 11/24/16 12:00 116 11/24/16 10:00 102 11/24/16 08:00 124 11/24/16 07:07 94 40 11/24/16 06:00 119 11/24/16 04:00 40 11/24/16 04:00 126 11/24/16 04:00 98.3 109 24 132/62 95 11/24/16 03:57 98 40 11/24/16 02:00 111 11/24/16 00:35 96 40 11/24/16 00:00 40 11/24/16 00:00 104 11/24/16 00:00 98.9 147 24 130/71 97 11/23/16 22:00 123 11/23/16 20:00 40 11/23/16 20:00 125 11/23/16 20:00 98.2 136 17 137/84 96 11/23/16 19:32 96 40 11/23/16 18:10 45 11/23/16 18:00 124 Intake & Output 11/24/16 11/24/16 07:00 19:00 Intake Total 1259 ml 873 ml Output Total 750 ml 500 ml Balance 509 ml 373 ml IV Total 909 ml 873 ml Other 350 ml Output Urine Total 750 ml 500 ml # Bowel Movements 0 0 Physical Exam CONSTITUTIONAL/GENERAL: This is an adequately nourished patient, sedated on mechanical ventilation. TUBES/LINES/DRAINS: ETT, OG, right subclavian central line, Jenkins, bilateral soft wrist restraints, STDs, podus boots. SKIN: pallor. Ecchymoses on upper extremities. Dressing right hand. Stage II pressure ulcer sacrum, not visualized today. Skin temperature appropriate. Not diaphoretic. ENT: unable to adequately assess hearing. Difficult to visualize throat secondary to tubes. CARDIOVASCULAR: atrial fibrillation on monitor. Rate 90 120 without murmurs, gallops, or rubs. No JVD. RESPIRATORY/CHEST: Symmetric, unlabored respirations on mechanical ventilation. Scattered course breath sounds. Expiratory wheeze noted on left. GASTROINTESTINAL: Abdomen soft, non-tender, nondistended. Protuberant. No guarding. Bowel sounds present. GENITOURINARY: Without palpable bladder distension. MUSCULOSKELETAL: Extremities with 3+ pitting, weeping edema. No mottling or clubbing. NEUROLOGICAL: more alert today, nods yes/no, follow some simple commands. Does not open ice for me today. PSYCHIATRIC: Off sedation. . Diagnostic Tests Laboratory Laboratory Tests Test 11/22/16 11/23/16 11/24/16 11/24/16 03:36 04:00 07:50 11:20 White Blood Count 8.4 TH/MM3 15.9 TH/MM3 (4.0-11.0) (4.0-11.0) Red Blood Count 3.29 MIL/MM3 3.51 MIL/MM3 (4.50-5.90) (4.50-5.90) Hemoglobin 9.0 GM/DL 9.7 GM/DL (13.0-17.0) (13.0-17.0) Hematocrit 27.4 % 29.4 % (39.0-51.0) (39.0-51.0) Mean Corpuscular Volume 83.5 FL 83.8 FL (80.0-100.0) (80.0-100.0) Mean Corpuscular Hemoglobin 27.5 PG 27.7 PG (27.0-34.0) (27.0-34.0) Mean Corpuscular Hemoglobin 32.9 % 33.0 % Concent (32.0-36.0) (32.0-36.0) Red Cell Distribution Width 17.8 % 18.0 % (11.6-17.2) (11.6-17.2) Platelet Count 115 TH/MM3 89 TH/MM3 (150-450) (150-450) Mean Platelet Volume 8.5 FL 8.1 FL (7.0-11.0) (7.0-11.0) Neutrophils (%) (Auto) 93.9 % 95.9 % (16.0-70.0) (16.0-70.0) Lymphocytes (%) (Auto) 2.6 % 2.3 % (9.0-44.0) (9.0-44.0) Monocytes (%) (Auto) 3.3 % (0.0-8.0) 1.7 % (0.0-8.0) Eosinophils (%) (Auto) 0.1 % (0.0-4.0) 0.0 % (0.0-4.0) Basophils (%) (Auto) 0.1 % (0.0-2.0) 0.1 % (0.0-2.0) Neutrophils # (Auto) 7.9 TH/MM3 15.2 TH/MM3 (1.8-7.7) (1.8-7.7) Lymphocytes # (Auto) 0.2 TH/MM3 0.4 TH/MM3 (1.0-4.8) (1.0-4.8) Monocytes # (Auto) 0.3 TH/MM3 0.3 TH/MM3 (0-0.9) (0-0.9) Eosinophils # (Auto) 0.0 TH/MM3 0.0 TH/MM3 (0-0.4) (0-0.4) Basophils # (Auto) 0.0 TH/MM3 0.0 TH/MM3 (0-0.2) (0-0.2) CBC Comment AUTO DIFF AUTO DIFF Differential Total Cells 100 100 Counted Neutrophils % (Manual) 96 % (16-70) 90 % (16-70) Lymphocytes % 1 % (9-44) Neutrophils # (Manual) 8.3 TH/MM3 14.9 TH/MM3 (1.8-7.7) (1.8-7.7) Metamyelocytes 2 % (0-1) Myelocytes 1 % (0-0) 1 % (0-0) Differential Comment FINAL DIFF FINAL DIFF MANUAL MANUAL Platelet Estimate LOW (NORMAL) LOW (NORMAL) Platelet Morphology Comment NORMAL NORMAL (NORMAL) (NORMAL) Ovalocytes 1+ (NORMAL) Sodium Level 138 MEQ/L 137 MEQ/L 137 MEQ/L (136-145) (136-145) (136-145) Potassium Level 2.7 MEQ/L 3.3 MEQ/L 3.2 MEQ/L (3.5-5.1) (3.5-5.1) (3.5-5.1) Chloride Level 98 MEQ/L 100 MEQ/L 100 MEQ/L (98-107) (98-107) (98-107) Carbon Dioxide Level 23.3 MEQ/L 23.3 MEQ/L 23.1 MEQ/L (21.0-32.0) (21.0-32.0) (21.0-32.0) Anion Gap 17 MEQ/L (5-15) 14 MEQ/L (5-15) 14 MEQ/L (5-15) Blood Urea Nitrogen 99 MG/DL (7-18) 104 MG/DL 113 MG/DL (7-18) (7-18) Creatinine 2.66 MG/DL 2.84 MG/DL 3.07 MG/DL (0.60-1.30) (0.60-1.30) (0.60-1.30) Estimat Glomerular Filtration 23 ML/MIN (>89) 22 ML/MIN (>89) 20 ML/MIN (>89) Rate Random Glucose 305 MG/DL 243 MG/DL 219 MG/DL (74-106) (74-106) (74-106) Calcium Level 7.9 MG/DL 7.6 MG/DL 7.6 MG/DL (8.5-10.1) (8.5-10.1) (8.5-10.1) Magnesium Level 1.7 MG/DL (1.5-2.5) Total Bilirubin 0.8 MG/DL (0.2-1.0) Aspartate Amino Transf LESS THAN 3 (AST/SGOT) U/L (15-37) Alanine Aminotransferase 13 U/L (12-78) (ALT/SGPT) Alkaline Phosphatase 85 U/L (45-117) Total Protein 4.9 GM/DL (6.4-8.2) Albumin 2.9 GM/DL (3.4-5.0) Band Neutrophils % 3 % (0-6) Monocytes % 6 % (0-8) Keratocytes OCC (NORMAL) Blood Gas Puncture Site LT RADIAL Blood Gas Patient Temperature 98.6 Blood Gas HCO3 21 mmol/L (22-26) Blood Gas Base Excess -4.0 mmol/L (-2-2) Blood Gas Oxygen Saturation 93 % (90-100) Arterial Blood pH 7.35 (7.380-7.420) Arterial Blood Partial 38 mmHg (38-42) Pressure CO2 Arterial Blood Partial 77 mmHg Pressure O2 (61-120) Arterial Blood Oxygen Content 12.9 Vol % (12.0-20.0) Arterial Blood 1.9 % (0-4) Carboxyhemoglobin Arterial Blood Methemoglobin 1.0 % (0-2) Blood Gas Hemoglobin 9.8 G/DL (12.0-16.0) Oxygen Delivery Device VENTILATOR Blood Gas Ventilator Setting CPAP5/10/ Blood Gas Inspired Oxygen 40 % Result Diagram: 11/24/16 0750 11/24/16 0750 Imaging Last Impressions Chest X-Ray 11/24/16 1145 Signed Impressions: Service Date/Time: Thursday, November 24, 2016 11:48 - CONCLUSION: Tubes and catheter stable. Persistent pulmonary vascular congestion with pleural effusions unchanged. Guru Ruiz MD Upper Extremity Ultrasound 11/18/16 0000 Signed Impressions: Service Date/Time: Friday, November 18, 2016 15:25 - CONCLUSION: Normal examination. Abdon Londono MD Renal Ultrasound 11/18/16 0000 Signed Impressions: Service Date/Time: Friday, November 18, 2016 15:08 - CONCLUSION: Mild thinning of the cortex which may represent prior intimal disease. No evidence of hydronephrosis. 2.4 cm cyst upper pole of the right kidney. Urinary bladder decompressed with Jenkins catheter in place Rome Dwyer MD Lower Extremity Ultrasound 11/18/16 0000 Signed Impressions: Service Date/Time: Friday, November 18, 2016 14:32 - CONCLUSION: Normal examination. No evidence DVT Rome Dwyer MD Head CT 11/18/16 0000 Signed Impressions: Service Date/Time: Friday, November 18, 2016 11:11 - CONCLUSION: Negative for an acute process. Girish Cervantes MD FACR . Procedures * 11/24/16 - medically extubated * 11/19/16 right subclavian central line placed * 11/18/16 intubated . Assessment and Plan Disease Oriented Problem List: (1) Atrial fibrillation with RVR (2) CKD (chronic kidney disease) stage 4, GFR 15-29 ml/min (3) Respiratory failure (4) Pneumonia (5) CHF (congestive heart failure) (6) Congestive heart failure (7) Stage II pressure ulcer of buttock (8) DM (diabetes mellitus) (9) Hypertension (10) A-fib (11) Anemia (12) Debility (13) Acute on chronic renal failure Symptom Scale: (1) Debility 0-10 Scale: Unable to quantify (2) Dyspnea 0-10 Scale: Unable to quantify (3) Pain 0-10 Scale: Unable to quantify Pertinent Non-Medical Issues Psychosocial: lives with his 17 years. Supported by their children. Spiritual: was born J[employer], well supported by their mosque. Legal: Patient is incapacitated, will not likely regained capacity. According to [place] statutes, in the absence of written advance directives, health care proxy decision-making falls to the patient's spouse. Ethical issues impacting care: no known concerns at this time. . Important Contacts * Susan Monahan, /HCP: [phone] or [phone] Prognosis Overall prognosis appears poor for meaningful recovery given advanced age, multiple comorbidities, acute on chronic illness and trajectory of decline prior to hospitalization dating back to August 2016. . Code Status: No Code Plan * Decision Maker: Patient is incapacitated, will not likely regained capacity. According to [place] statutes, in the absence of written advance directives, health care proxy decision-making falls to the patient's spouse. In making will also be supported by the patient's 2 daughters Lolita and Liliya once they arrive from out of town. * NO CODE * 11/24/16 Palliative care: I met with the patient's , Susan and patient's best friend. Patient was medically extubated, elected do not reintubate. She has now elected for transition to comfort focused care with hospice support. Plans for discharge to [facility] when arrangements made this evening for management of dyspnea and anxiety. * Hospice consulted. * SYMPTOMS: Pain and dyspnea: orders per hospice attending. * Palliative care will continue to follow throughout hospital course to assist with symptom management and clarification of goals as needed. . Attestation To help prompt me to consider important information that might be impacting today's encounter and assessment, information from prior notes written by myself or my colleagues may have been "brought forward" into today's note. My signature on this note, however, is an attestation that I personally performed the exam, history, and/or decision-making noted today, and, unless otherwise indicated, the interactions with patient, family, and staff as well as the review of records all occurred today. I also attest that the listed assessment and stated plan reflect my best clinical judgment today based on the combination of historical information, prior notes, and today's exam/ interactions. When time spent is documented, it refers only to time spent today by the signer, or if indicated, combined time spent today by collaborating physician/nurse practitioner. NISHANT STEVE Nov 24, 2016 16:37
[2016-11-24] MEDS ORDERED: LORazepam 2 MG/ML VIAL IV PUSH PRN (19:00)
[2016-11-24] MEDS ORDERED: HYDROmorphone HCL PF 1 MG/ML VIAL IV PUSH PRN ×2 (19:00)
--- NOTE | 2016-11-24 19:48 | HHI.DS ---
Discharge Summary Admission Date Nov 18, 2016 at 05:56 Discharge Date: Nov 24, 2016 Admitting Diagnosis Respiratory Failure, suspected aspiration, afib with rvr (1) DM (diabetes mellitus) (2) A-fib (3) Dyspnea (4) Debility CBC/BMP: 11/24/16 0750 11/24/16 0750 Significant Findings Laboratory Tests Test 11/22/16 11/23/16 11/24/16 11/24/16 03:36 04:00 07:50 11:20 Red Blood Count 3.29 MIL/MM3 3.51 MIL/MM3 (4.50-5.90) (4.50-5.90) Hemoglobin 9.0 GM/DL 9.7 GM/DL (13.0-17.0) (13.0-17.0) Hematocrit 27.4 % 29.4 % (39.0-51.0) (39.0-51.0) Red Cell Distribution Width 17.8 % 18.0 % (11.6-17.2) (11.6-17.2) Platelet Count 115 TH/MM3 89 TH/MM3 (150-450) (150-450) Neutrophils (%) (Auto) 93.9 % 95.9 % (16.0-70.0) (16.0-70.0) Lymphocytes (%) (Auto) 2.6 % 2.3 % (9.0-44.0) (9.0-44.0) Neutrophils # (Auto) 7.9 TH/MM3 15.2 TH/MM3 (1.8-7.7) (1.8-7.7) Lymphocytes # (Auto) 0.2 TH/MM3 0.4 TH/MM3 (1.0-4.8) (1.0-4.8) Neutrophils % (Manual) 96 % (16-70) 90 % (16-70) Lymphocytes % 1 % (9-44) Neutrophils # (Manual) 8.3 TH/MM3 14.9 TH/MM3 (1.8-7.7) (1.8-7.7) Metamyelocytes 2 % (0-1) Myelocytes 1 % (0-0) 1 % (0-0) Platelet Estimate LOW (NORMAL) LOW (NORMAL) Ovalocytes 1+ (NORMAL) Potassium Level 2.7 MEQ/L 3.3 MEQ/L 3.2 MEQ/L (3.5-5.1) (3.5-5.1) (3.5-5.1) Anion Gap 17 MEQ/L (5-15) Blood Urea Nitrogen 99 MG/DL (7-18) 104 MG/DL 113 MG/DL (7-18) (7-18) Creatinine 2.66 MG/DL 2.84 MG/DL 3.07 MG/DL (0.60-1.30) (0.60-1.30) (0.60-1.30) Estimat Glomerular Filtration 23 ML/MIN (>89) 22 ML/MIN (>89) 20 ML/MIN (>89) Rate Random Glucose 305 MG/DL 243 MG/DL 219 MG/DL (74-106) (74-106) (74-106) Calcium Level 7.9 MG/DL 7.6 MG/DL 7.6 MG/DL (8.5-10.1) (8.5-10.1) (8.5-10.1) Aspartate Amino Transf LESS THAN 3 (AST/SGOT) U/L (15-37) Total Protein 4.9 GM/DL (6.4-8.2) Albumin 2.9 GM/DL (3.4-5.0) White Blood Count 15.9 TH/MM3 (4.0-11.0) Blood Gas HCO3 21 mmol/L (22-26) Blood Gas Base Excess -4.0 mmol/L (-2-2) Arterial Blood pH 7.35 (7.380-7.420) Blood Gas Hemoglobin 9.8 G/DL (12.0-16.0) Imaging Last 24 hours Impressions Chest X-Ray 11/24/16 1145 Signed Impressions: Service Date/Time: Thursday, November 24, 2016 11:48 - CONCLUSION: Tubes and catheter stable. Persistent pulmonary vascular congestion with pleural effusions unchanged. Guru Ruiz MD PE at Discharge GENERAL: elderly, ill male SKIN: Warm and dry. HEAD: Normocephalic. EYES: No scleral icterus. No injection or drainage. NECK: Supple, trachea midline. No JVD or lymphadenopathy. CARDIOVASCULAR: Regular rate and rhythm without murmurs, gallops, or rubs. RESPIRATORY: Breath sounds equal bilaterally. No accessory muscle use. GASTROINTESTINAL: Abdomen soft, non-tender, nondistended. MUSCULOSKELETAL: No cyanosis, or edema. BACK: Nontender without obvious deformity. No CVA tenderness. Transfer Summary The patient is a 81-year-old male with multiple medical comorbidities which include CHF, COPD, chronic kidney disease with history in the recent past of hemodialysis which was later discontinued, hypertension, hyperlipidemia, diabetes mellitus, BPH and peripheral neuropathy. He presented to [facility] ED from a local nursing facility for respiratory distress. Upon ambulance services arrival the patient had O2 saturation in the 70s and he was briefly placed on a non-rebreather mask where his O2 saturation improved to up in the 80s. However, the patient was tachycardic with heart rate in the 150s. He had a GCS score of 4 and was subsequently intubated by ambulance services prior to arrival after he was given etomidate and Ativan. His initial systolic blood pressure in the 80s and the patient responded to fluid resuscitation and his last blood pressure is 107/55 with a MAP of 72. The patient's blood sugar prior to arrival was 93. CT scan of the brain was obtained which was negative for acute process. Chest x-ray showed ET tube above the diana and pulmonary infiltrates, right greater than left. ABG post-intubation showed a pH of 7.20, CO2 58, pAO2 235, bicarb 22, saturation of 95% on assist control ventilation with a respiratory rate of 16, tidal volume 500, PEEP of 5 and FIO2 of 100%. His laboratory data is significant for acute on chronic kidney disease with BUN of 90, creatinine 2.65 and potassium of 5.3. His BNP was elevated at 395. EKG in the ER showed atrial fibrillation with RVR at a rate of 134 beats per minute. In the ED the patient was placed on fentanyl infusion for sedation which is currently at 80 mics. In addition he was given vancomycin and Zosyn. The patient also had nonocclusive thrombus of the right IJ vein in September and was placed on Eliquis 2.5 mg b.i.d., part of his home medications. The rest of the history is limited as the patient is intubated. Hospital Course 11/19: Patient remains intubated sedated with fentanyl. Tachycardic and heart rate 160s. Systolic blood pressure low at 70s. Levophed started. Urine output 1.8 L in 24 hours urine creatinine remains elevated 93/2.5. Chest x-ray shows pulmonary edema. EF 40-45% on 2-D echo. I will discontinue Bumex daily and started on Bumex infusion 11/20: Remains intubated sedated critically ill. Remains on vasopressin 0.04 international units. Currently on amiodarone infusion with heart rate varying from 110-130 11/21: Remains on vasopressin and amiodarone. No acute events overnight. Will start CPAP trails if criteria met. UO adequate 11/22: Patient tolerating C Pap trials today, still under residual sedation. Vasopressin had been turned off. Urine output more than 2 L. Remains on amiodarone infusion 11/23: Tolerating CPAP 15/5 but mental status will not permit extubation. Weekly follows commands. UO adequate, creat increased to 2.84. On Bumex and Amiodarone gtt 11/24 Patient is on Amio and Bumex drips. Afebrile. On no sedation. Pt Condition on Discharge: Fair Discharge Disposition: Hospice/Med Facility Discharge Instructions DIET: Follow Instructions for: As Tolerated, No Restrictions Activities you can perform: Regular-No Restrictions Ed Olivarez MD Nov 24, 2016 19:47
[2016-11-25] MEDS ORDERED: BUMETANIDE INJ 1 MG/4 ML VIAL IV PUSH SCH (09:00)
== END 2016-11-24 22:05 | disposition hospice, inpatient (51) | DRG 207 ==
LOC: NEPE 04:30 → NEDA 05:56 → HIMW 13:20
PROVIDERS: ADMIT Internal Medicine Critical Care Medicine; ATTEND Internal Medicine Critical Care Medicine
PROC: 5A1955Z Respiratory Ventilation, Greater than 96 Consecutive Hours (ICD-10-PCS; principal; 2016-11-18)
PROC: 02HV33Z Insertion of Infusion Device into Superior Vena Cava, Percutaneous Approach (ICD-10-PCS; 2016-11-19)
DX: J96.01 Acute respiratory failure with hypoxia (principal); J69.0 Pneumonitis due to inhalation of food and vomit; N17.0 Acute kidney failure with tubular necrosis; L89.152 Pressure ulcer of sacral region, stage 2; N18.4 Chronic kidney disease, stage 4 (severe); L89.302 Pressure ulcer of unspecified buttock, stage 2; I95.9 Hypotension, unspecified; I13.0 Hypertensive heart and chronic kidney disease with heart failure and stage 1 through stage 4 chronic kidney disease, or unspecified chronic kidney disease; I48.91 Unspecified atrial fibrillation; J44.0 Chronic obstructive pulmonary disease with (acute) lower respiratory infection; I82.C21 Chronic embolism and thrombosis of right internal jugular vein; I50.9 Heart failure, unspecified; E11.22 Type 2 diabetes mellitus with diabetic chronic kidney disease; E87.5 Hyperkalemia; J96.02 Acute respiratory failure with hypercapnia; E11.42 Type 2 diabetes mellitus with diabetic polyneuropathy; E66.01 Morbid (severe) obesity due to excess calories; D63.8 Anemia in other chronic diseases classified elsewhere; J44.9 Chronic obstructive pulmonary disease, unspecified; H40.9 Unspecified glaucoma; M10.9 Gout, unspecified; E78.5 Hyperlipidemia, unspecified; K21.9 Gastro-esophageal reflux disease without esophagitis; M19.90 Unspecified osteoarthritis, unspecified site; I45.10 Unspecified right bundle-branch block; N40.0 Benign prostatic hyperplasia without lower urinary tract symptoms; G47.33 Obstructive sleep apnea (adult) (pediatric); Z51.5 Encounter for palliative care; Z66 Do not resuscitate; Z68.34 Body mass index [BMI] 34.0-34.9, adult; Z78.1 Physical restraint status; Z79.01 Long term (current) use of anticoagulants; Z79.4 Long term (current) use of insulin; Z87.891 Personal history of nicotine dependence
CPT/HCPCS: 36556; 36600; 51702; 70450; 71010; 76775; 80048; 80053; 81001; 82550; 82805; 82948; 83605; 83690; 83735; 83880; 84132; 84439; 84443; 84481; 84484; 85007; 85025; 85027; 85610; 85730; 87040; 87086; 87449; 87641; 87804; 93005; 93306; 93970; 93971; 94002; 94003; 94150; 94640; 94664; 96365; 96367; 96375; C9113; J0282; J0610; J1160; J1720; J1815; J2020; J2060; J2250; J2543; J3010; J3370; J3480; J7030; J7040; J7050; J7060; P9047